=== PATIENT | female | born 1955 | race Caucasian/White ===

== ENCOUNTER 2019-08-25 00:24 | Outpatient (CLI) | payer MEDICARE, OTHER, SELFPAY ==
[2019-08-25 17:48] LABS: SARS-CoV-2 RNA PCR Negative
== END 2019-08-25 00:25 | disposition home or self-care (01) ==
LOC: ANHCOVIDDT 00:25
PROVIDERS: PCP Internal Medicine; Visit Provider Internal Medicine Gastroenterology
DX: Z01.818 Encounter for other preprocedural examination (principal); Z11.59 Encounter for screening for other viral diseases
CPT/HCPCS: 87635; C9803; U0003

== ENCOUNTER 2019-08-28 00:16 | Day surgery (SDC) | payer MEDICARE, OTHER, SELFPAY ==
[2019-08-16 13:57] VITALS: BMI 29.5
[2019-08-28 07:25] VITALS: BP 147/69; PULSE 53; RESP 18; TEMP 36.4; O2SAT 98; BMI 29.5
[2019-08-28] MEDS: LACTATED RINGERS 1,000 ML 150 ML IV CONT (07:39)
--- NOTE | 2019-08-28 07:48 | WPDANESEPPF ---
Anes - Initial Pre Proc Eval Procedure: Operation Date: 08/28/19 08:30 Proposed Procedures p Colonoscopy - Gilberto Crain MD Date/Time: 08/28/19 07:48 Surgeon: Gilberto Crain MD Pre Op Diagnosis: History of Colon Cancer, Blood in Stool Patient Data Age: 64 Gender: F Height: 5 ft 9 in Weight: 90.9 kg Last Vital Signs Temp 36.4 C 08/28/19 07:25 Pulse 53 L 08/28/19 07:25 Resp 18 08/28/19 07:25 BP 147/69 H 08/28/19 07:25 Pulse Ox 98 08/28/19 07:25 Allergies Allergy/AdvReac Type Severity Reaction Status Date / Time cefaclor Allergy Unknown Rash Verified 08/28/19 07:27 Cephalosporins Allergy Unknown Rash Verified 08/28/19 07:27 Home Medications Medication Instructions Recorded Confirmed Type aspirin [Aspirin Low Dose] 81 mg PO DAILY 08/16/19 08/28/19 History multivitamin [Daily Multi-Vitamin] 1 tablet PO DAILY 08/16/19 08/16/19 History omega 9-mzf-ogc-fish oil [Fish Oil] 1 cap PO DAILY 08/16/19 08/16/19 History amlodipine 10 mg tablet 10 mg PO DAILY #90 tablet 08/23/19 08/28/19 Rx benazepril 10 mg tablet 10 mg PO DAILY #90 tablet 08/23/19 08/28/19 Rx Patient hx anesthesia problems: none Family hx anesthesia problems: none [facility] Family History Family History Mother Family history of cardiac disorder Father Family history of diabetes mellitus in first degree relative Family history of heart disease in male family member before age 55 Social History Social History Smoking status: Former smoker Smoking end date: 03/15/96 Alcohol intake: current Anes - Eval Final PreProcedure Day of Procedure 08/28/19 07:48 Patient weight: obese Heart: regular rate and rhythm Lungs: clear to auscultation Airway: Mallampati scale class II Neurological: alert and oriented Last oral intake: >/= 8 hours ASA classification: III Emergent: no Anesthetic plan: proceed Anesthesia type and monitoring: general GIVS and standard monitoring Informed Consent: The patient's anesthetic plan and its attendant risks and benefits were discussed with the patient/family/POA. Questions were solicited and answers provided to the satisfaction of the patient/family/POA.
--- NOTE | 2019-08-28 07:58 | PM.HPGS ---
History of Present Illness History of Present Illness Consent: Risks, benefits, and alternatives have been discussed and questions answered. Patient agrees to proceed with procedure. Chief complaint: History of Colon Cancer, Blood in Stool Narrative: Carmelina Brooks is a 64 year old W female referred for colonoscopy secondary history of Hemoccult-positive stool. Patient also had a sigmoid resection in 2006 secondary to a dysplastic sigmoid polyp. No invasive cancer was noted after the surgery. Patient's last colonoscopy was 4 years ago revealing normal anastomosis. Patient has occasional constipation and that alternating with diarrhea. [facility] Past Medical History Medical History Obesity (BMI 30.0-34.9) Surgical History Surgical History (Updated 08/28/19 @ 08:00 by Gilberto Crain MD) Status post abdominal hysterectomy Status post cholecystectomy Status post right hip replacement Family History Family History Mother Family history of cardiac disorder Father Family history of diabetes mellitus in first degree relative Family history of heart disease in male family member before age 55 Social History Social History Smoking status: Former smoker Smoking end date: 03/15/96 Alcohol intake: current Meds Home Medications and Allergies Home Medications Medication Instructions Recorded Confirmed Type aspirin [Aspirin Low Dose] 81 mg PO DAILY 08/16/19 08/28/19 History multivitamin [Daily Multi-Vitamin] 1 tablet PO DAILY 08/16/19 08/16/19 History omega 1-pqg-yqd-fish oil [Fish Oil] 1 cap PO DAILY 08/16/19 08/16/19 History amlodipine 10 mg tablet 10 mg PO DAILY #90 tablet 08/23/19 08/28/19 Rx benazepril 10 mg tablet 10 mg PO DAILY #90 tablet 08/23/19 08/28/19 Rx Allergies Allergy/AdvReac Type Severity Reaction Status Date / Time cefaclor Allergy Unknown Rash Verified 08/28/19 07:27 Cephalosporins Allergy Unknown Rash Verified 08/28/19 07:27 Vital Signs Vital Signs - 24 hr 08/28/19 07:25 Temperature 36.4 C Pulse Rate 53 L Respiratory Rate 18 Blood Pressure 147/69 H Pulse Oximetry 98 Exam Const: Orientation/consciousness: patient oriented x3 Resp: Auscultation: clear to auscultation bilaterally Cardio: Rate: regular rate Rhythm: regular rhythm Heart sounds: no murmurs GI: GI Palp: Yes Soft to palpation, No Tenderness to palpation present (GI), Yes No hepatosplenomegaly present and No Palpable mass present Auscultation: normal bowel sounds Neuro: General: patient oriented x3 and no focal motor deficits Extrem: General: no pedal edema Assessment and Plan Additional Plan screening colonoscopy secondary history of colonic polyps and heme-positive stool
[2019-08-28] MEDS: SIMETHICONE ORAL SUSPENSION 20 MG/0.3 ML 30 ML BOTTLE 0.6 ML IRRIGATION (08:37)
[2019-08-28 09:15] VITALS: BP 89/39; PULSE 56; RESP 16; O2SAT 100
[2019-08-28 09:25] VITALS: BP 108/53; PULSE 50; RESP 16; O2SAT 100
[2019-08-28 09:35] VITALS: BP 121/59; PULSE 48; RESP 16; O2SAT 100
== END 2019-08-28 09:52 | disposition home or self-care (01) ==
PROVIDERS: PCP Internal Medicine; Visit Provider Internal Medicine Gastroenterology
PROC: 0DJD8ZZ Inspection of Lower Intestinal Tract, Via Natural or Artificial Opening Endoscopic (ICD-10-PCS; CPT 45378; principal; 2019-08-28 08:30)
DX: Z12.11 Encounter for screening for malignant neoplasm of colon (principal); D12.0 Benign neoplasm of cecum; D12.2 Benign neoplasm of ascending colon; K52.9 Noninfective gastroenteritis and colitis, unspecified; Z79.82 Long term (current) use of aspirin; Z87.891 Personal history of nicotine dependence; E66.9 Obesity, unspecified; Z68.29 Body mass index [BMI] 29.0-29.9, adult; Z90.49 Acquired absence of other specified parts of digestive tract; Z98.0 Intestinal bypass and anastomosis status
CPT/HCPCS: 45380; 45381; 45385; 88305; J2001; J2704; J7120

== ENCOUNTER → 2020-01-31 10:28 | Outpatient (CLI) | payer MEDICARE, OTHER, SELFPAY ==
--- NOTE | ~2020-01-31 | MM_ITS ---
EXAMINATION: MM screening [facility] BI w eulogio HISTORY: Screening mammogram TECHNIQUE: Craniocaudal and mediolateral oblique 3-D tomosynthesis images were obtained and synthetic 2-D images were generated. CAD analysis was submitted and interpreted. COMPARISON: 01/01/2019, 01/04/2018, 12/29/2016 BREAST PARENCHYMAL COMPOSITION: The breasts are almost entirely fatty. FINDINGS: There is no evidence of suspicious mass, calcification, or architectural distortion to sugg est malignancy in either breast. There has been no suspicious interval change. IMPRESSION: 1. No mammographic evidence of malignancy. 2. Recommend routine screening mammography in one year. BI-RADS Category 1: Negative Reviewed, dictated and finalized at location A. LE OPERATOR HEAD
== END ==
PROVIDERS: PCP Internal Medicine; Visit Provider Nurse Practitioner Obstetrics & Gynecology
DX: Z12.31 Encounter for screening mammogram for malignant neoplasm of breast (principal)
CPT/HCPCS: 77063; 77067

== ENCOUNTER 2020-02-12 07:41 | Outpatient (CLI) | payer MEDICARE, OTHER, SELFPAY ==
--- NOTE | ~2020-02-12 | US_ITS ---
EXAMINATION: US aorta [facility] scrn DATE: 02/12/2020 08:10 INDICATION: Abdominal aortic aneurysm screening. TECHNIQUE: Grayscale, color Doppler, and pulsed Doppler images of the aorta and common iliac arteries were obtained. COMPARISON: None. FINDINGS: The aorta is normal in caliber. The right common iliac artery is normal in caliber. The left common i liac artery is normal in caliber. IMPRESSION: 1. No abdominal aortic aneurysm. Reviewed, dictated and finalized at location A. ATRIC PHYSICIAN
== END 2020-02-12 07:42 | disposition home or self-care (01) ==
PROVIDERS: PCP Internal Medicine; Visit Provider Internal Medicine
DX: Z13.6 Encounter for screening for cardiovascular disorders (principal)
CPT/HCPCS: 76706

== ENCOUNTER → 2020-02-15 12:15 | Outpatient (CLI) | payer MEDICARE, OTHER, SELFPAY ==
--- NOTE | ~2020-02-15 | CT_ITS ---
EXAMINATION: CT foot LT wo con DATE: 02/15/2020 12:48 INDICATION: Left hindfoot pain TECHNIQUE: High resolution computed tomography (CT) of the left foot was performed without intravenou s contrast. Additional sagittal and coronal reconstructions were performed. Automated exposure contro l and iterative reconstruction technique were employed. The dose-length product was 162.71 mGy-cm. COMPARISON: Left foot radiographs dated 12/12/2019 FINDINGS: Old healed fracture at the neck of the fifth metatarsal with small cerclage wire through the dorsal c ortex. Bone alignment is otherwise normal. No other fractures. Mild osteoarthritis at the first and f ifth metatarsophalangeal joints. Small Achilles spur and moderate sized plantar calcaneal spur. Achil les tendinosis with fusiform thickening and mild decreased central tendon attenuation at approximatel y 3 cm above level of the calcaneal insertion. Peroneus brevis tendinosis with additional fusiform th ickening of the tendon centered at the level of the tip of the lateral malleolus. No left ankle joint effusion. IMPRESSION: 1. Mild osteoarthritis at the first and fifth metatarsophalangeal joints, the latter likely secondary to old healed internally fixed fractures at the neck of the fifth metatarsal. 2. Small Achilles and moderate sized plantar calcaneal spurs. 3. Mild Achilles tendinosis and mild peroneus brevis tendinopathy. Reviewed, dictated and finalized at location A. IT RELATIONSHIP MANAGER IMPRESSION: 1. Mild osteoarthritis at the first and fifth metatarsophalangeal joints, the l atter likely secondary to old healed internally fixed fractures at the neck of the fifth metatarsal. 2. Small Achilles and moderate sized plantar calcaneal spurs. 3. Mild Achilles tendinosis and mild peroneus brevis tendinopathy.
--- NOTE | ~2020-02-15 | CT_ITS ---
EXAMINATION: CT foot RT wo con DATE: 02/15/2020 12:47 INDICATION: Right foot pain TECHNIQUE: High resolution computed tomography (CT) of the right foot was performed without intraveno us contrast. Additional sagittal and coronal reconstructions were performed. Automated exposure contr ol and iterative reconstruction technique were employed. The dose-length product was 176.47 mGy-cm. COMPARISON: Right foot radiographs dated 12/12/2019 FINDINGS: Bone alignment is normal. No fracture. Mild osteoarthritis at the first metatarsophalangeal joint. Re maining joint spaces are relatively preserved. Tiny heterotopic ossicle near the posterior inferior t ip of the lateral malleolus which may represent sequela of chronic lateral ankle sprain. Small Achill es and plantar calcaneal spurs. Achilles tendinosis with fusiform thickening and mild central decreas ed tendon attenuation centered approximately 3 cm proximal to the calcaneal insertion. Additional mil d fusiform thickening of the peroneus brevis tendon centered at the tip of the lateral malleolus cons istent with mild tendinopathy. Soft tissues are otherwise unremarkable. No right ankle joint effusion . IMPRESSION: 1. Mild osteoarthritis at the first metatarsophalangeal joint. No acute osseous abnormality. 2. Small Achilles and plantar calcaneal spurs. 3. Mild Achilles tendinosis and mild tenderness brevis tendinopathy. Reviewed, dictated and finalized at location A. SOFT SUGAR OPERATOR
== END ==
PROVIDERS: PCP Internal Medicine; Visit Provider Orthopaedic Surgery
DX: M19.072 Primary osteoarthritis, left ankle and foot (principal); M19.071 Primary osteoarthritis, right ankle and foot; M77.32 Calcaneal spur, left foot; M77.31 Calcaneal spur, right foot
CPT/HCPCS: 73700

== ENCOUNTER 2020-02-26 10:23 | Outpatient (CLI) | payer MEDICARE, OTHER, SELFPAY ==
--- NOTE | 2020-02-26 10:25 | ECG_ITS ---
Measurements Intervals [place] Rate: 48 P: 43 LA: 193 QRS: 15 QRSD: 88 T: 28 QT: 410 QTc: 367 Interpretive Statements SINUS BRADYCARDIA DELAYED PRECORDIAL R/S TRANSITION BASELINE ARTIFACT- I, II, III, AVR, AVL, AVF ABNORMAL ECG Electronically Signed On 02-26-2020 10:51:56 MICROSOFT DYNAMICS DEVELOPER by Kali Bautista D.O.
== END 2020-02-26 10:24 | disposition home or self-care (01) ==
LOC: ANHSURGERY 10:25
PROVIDERS: PCP Internal Medicine; Visit Provider Orthopaedic Surgery
DX: Z01.810 Encounter for preprocedural cardiovascular examination (principal); R00.1 Bradycardia, unspecified; I10 Essential (primary) hypertension
CPT/HCPCS: 93005

== ENCOUNTER 2020-03-01 01:53 | Outpatient (CLI) | payer MEDICARE, OTHER, SELFPAY ==
[2020-03-01 20:00] LABS: SARS-CoV-2 RNA PCR Negative
== END 2020-03-01 01:54 | disposition home or self-care (01) ==
LOC: ANHCOVIDDT 01:53
PROVIDERS: PCP Internal Medicine; Visit Provider Orthopaedic Surgery
DX: Z01.812 Encounter for preprocedural laboratory examination (principal); Z20.828 Contact with and (suspected) exposure to other viral communicable diseases
CPT/HCPCS: 87635; C9803; U0003

== ENCOUNTER 2020-03-04 01:53 | Day surgery (SDC) | payer MEDICARE, OTHER, SELFPAY ==
[2020-02-23 14:01] VITALS: BMI 29.6
[2020-03-04] VITALS (7 sets, daily range): BP systolic 146–162; BP diastolic 67–83; PULSE 53–58; RESP 10–20; TEMP 36; O2SAT 96–100
--- NOTE | ~2020-03-04 | XR_ITS ---
EXAMINATION: XR surgery orthopedic DATE: 03/04/2020 14:06 INDICATION: Left cavovarus deformity and left foot pain. TECHNIQUE: 4 intraoperative fluoroscopic views of left foot were obtained. I was not present. Fluoros copy exposure time was 19 seconds. COMPARISON: Left foot CT 02/15/2020 FINDINGS: There is an osteotomy of calcaneus with fixation with a lag screw. There is an osteotomy of medial cuneiform with fixation with a staple. There is surgical change versus old healed fracture in volving neck of fifth metatarsal with wire fixation. IMPRESSION: 1. Osteotomies of calcaneus and medial cuneiform with fixation. Reviewed, dictated and finalized at location A. ARD MACHINE OPERATOR
--- NOTE | 2020-03-04 06:55 | WPDHPUPDATE1 ---
History and Physical Update Update Date/Time: 03/04/20 06:55 History and Physical has been reviewed, including an updated exam of the patient. There are NO changes in the patient's condition. Covid test negative Risks, benefits, and alternatives have been discussed and questions answered. Patient agrees to proceed with procedure.
--- NOTE | 2020-03-04 07:41 | PHAR ---
CEFAZOLIN ORDERED, MILD (RASH) CEPHALOSPORIN ALLERGY. TALKED TO YOLANDE Clemons RN IN PRE-OP. HE WILL LET HER NURSE, DEANA, KNOW
[2020-03-04] MEDS: ACETAMINOPHEN 500 MG TABLET 1000 MG PO (10:19)
[2020-03-04] MEDS: KETOROLAC 15 MG/ML VIAL (*BKC) IV PUSH (10:25)
--- NOTE | 2020-03-04 10:27 | WPDANESEPPF ---
Anes - Initial Pre Proc Eval Procedure: Operation Date: 03/04/20 11:30 Proposed Procedures p Left Calcaneus Osteotomy, First Metatarsal Osteotomy - Luke Turpin MD Date/Time: 03/04/20 10:27 Surgeon: Luke Turpin MD Pre Op Diagnosis: left cavovarus deformity and pain Patient Data Age: 64 Gender: F Height: 1.75 m Weight: 91 kg Allergies Allergy/AdvReac Type Severity Reaction Status Date / Time cefaclor Allergy Mild Rash Verified 02/27/20 08:34 Cephalosporins Allergy Mild Rash Verified 02/27/20 08:34 Home Medications Medication Instructions Recorded Confirmed Type aspirin [Aspirin Low Dose] 81 mg PO DAILY 08/16/19 02/27/20 History multivitamin [Daily Multi-Vitamin] 1 tablet PO DAILY 08/16/19 02/27/20 History omega 0-pjt-qbz-fish oil [Fish Oil] 2 cap PO DAILY 08/16/19 02/27/20 History amlodipine 10 mg tablet 10 mg PO DAILY #90 tablet 08/23/19 02/27/20 Rx benazepril 10 mg tablet 10 mg PO DAILY #90 tablet 08/23/19 02/27/20 Rx conjugated estrogens 0.625 mg/gram 0.625 mg VAGINAL 2XW 12/12/19 02/27/20 History vaginal cream glucosamine sulfate 1,000 mg 1,000 mg PO DAILY 12/12/19 02/27/20 History capsule lactobacillus combination no.8 3 3,000 mmu cells PO DAILY 12/12/19 02/27/20 History billion cell capsule psyllium husk 0.52 gram capsule 1.04 gm PO DAILY 12/12/19 02/27/20 History hydrocodone 5 mg-acetaminophen 325 1 tablet PO Q4H PRN #30 tablet 02/28/20 02/28/20 Rx mg tablet ondansetron 8 mg disintegrating 8 mg PO Q6-8H PRN #10 tablet 02/28/20 02/28/20 Rx tablet Patient hx anesthesia problems: none Family hx anesthesia problems: none PMFSH Past Medical History Medical History Air hunger Arthritis Bee sting Bunionette of right foot Callus of foot Cavovarus deformity of foot, acquired Chest wall pain Chronic rhinitis Colon cancer screening Decreased motility of stomach Hypertension Obesity (BMI 30.0-34.9) Seasonal allergies Vision loss Surgical History Surgical History History of colon surgery History of surgery Port-A-Cath placement, 2005 Status post abdominal hysterectomy Status post cholecystectomy Status post right hip replacement Family History Family History Mother Family history of cardiac disorder Father Family history of diabetes mellitus in first degree relative Family history of heart disease in male family member before age 55 Other Heart disease History of malignant neoplasm Hypertension Social History Social History Smoking packs per day: 1.5 Smoking cigarettes per day: 30.0 Years smoked: 25 Smoking pack-years: 37.50 Smoking end date: 09/12/98 Alcohol intake: current Drinks per week: 18 Substance use: never Substance use type: does not use Living arrangements: with family Additional living arrangements comments: JUNA Gender identity (if verbalized by the patient): Female Spiritual care concerns: No Anes - Eval Final PreProcedure Day of Procedure 03/04/20 10:27 Patient weight: overweight Heart: regular rate and rhythm Lungs: clear to auscultation and normal air movement Airway: Mallampati scale class II Neurological: alert and oriented Last oral intake: >/= 8 hours ASA classification: III Emergent: no Anesthetic plan: proceed Anesthesia type and monitoring: general LMA and standard monitoring Informed Consent: The patient's anesthetic plan and its attendant risks and benefits were discussed with the patient/family/POA. Questions were solicited and answers provided to the satisfaction of the patient/family/POA.
[2020-03-04] MEDS: LACTATED RINGERS 1,000 ML 30 ML IV CONT ×2 (11:30→14:22)
[2020-03-04] MEDS: ceFAZolin 2 GM/D5W 50 ML 2 GM/50 ML BAG IVPB (12:34)
[2020-03-04] MEDS: BUPIVACAINE HCL 0.5% PF 30 ML VIAL INFILTRATE (13:08)
[2020-03-04] MEDS: fentaNYL CITRATE INJ (*CRX) 100 MCG/2 ML VIAL 25 MCG IV PUSH ×4 (14:41→14:58)
--- NOTE | 2020-03-04 14:46 | PM.PROC ---
Procedure Note - Detailed Date of procedure: 03/04/20 Pre-op diagnosis: left cavovarus deformity and pain Post-op diagnosis: same Procedure performed: Left foot calcaneus and cuneiform osteotomy Description of procedure: Indications: Patient is a 64-year-old woman with a cavovarus foot deformity with pressure and overload of the lateral border of the foot, pain and callus formation. She has failed conservative treatment with custom orthotic inserts, ankle brace, skin and local wound care. She presents now for operative treatment. What was done: Patient identified in the preoperative holding. Informed consent given. Operative extremity marked. Patient received intravenous antibiotics. Patient brought to the operating room where underwent general anesthetic by anesthesia team. Positioned supine on operating room table. Time-out performed confirming the patient, site of the surgery and the plan. Left foot and ankle prepped and draped usual sterile surgical fashion using a ChloraPrep skin solution. Foot ankle exsanguinated and thigh tourniquet inflated to 250 mmHg. Image intensification used to guide the placement of the incision over the lateral calcaneus. Oblique incision made with 15 blade knife posterior to the fibula. Hemostasis controlled electrocautery. Care was taken to protect the sensory elements. Periosteum was then incised in line with skin incision. Image intensification was used to confirm the placement of the osteotomy. Transverse osteotomy then made from lateral to medial with a sagittal saw and completed with osteotomes. Posterior fragment was then displaced laterally approximately 9 mm and provisionally pinned. After verifying alignment fixation was achieved with the 6.5 mm cannulated screw placed percutaneously from the heel. The position checked and verified with image intensification. Wound thoroughly irrigated antibiotic solution and the deep tissue closed with 3 Monocryl interrupted suture. Subcutaneous tissue repaired with 3 Monocryl interrupted suture and the skin repaired with 4 nylon running suture. The internal fixation incision closed with 4 O nylon interrupted suture. Attention then turned to the medial cuneiform. Longitudinal incision made over the dorsum of the medial cuneiform and hemostasis controlled electrocautery. Dissection carried down and the periosteum incised in line with skin incision. Image intensification then confirmed placement of the osteotomy in the midportion of the medial cuneiform and a dorsal closing wedge osteotomy of approximately 5 mm was performed. Fixation was achieved with the staple and alignment and placement were verified with image intensification. Wound thoroughly irrigated with antibiotic solution and the superficial soft tissue closed with 3 Monocryl interrupted suture. Skin repaired with 4 nylon running suture. Sterile dressing applied. The patient was then woken from anesthesia, extubated and taken to the recovery room in stable condition. All sponge, needle, instrument counts were correct at the end of the case. Implants: Ajith 6.5 mm cannulated screw x1, Arthrex 15 x 15 mm staple x1 Anesthesia: GLMA Surgeon: Luke Turpin MD Geospatial Intelligence Analyst: 1st clothing sales assistant Estimated blood loss (mL): 5 Tourniquet time (min): 70 Drains: No Packing: No Pathology: none sent Complications: None Condition: stable Disposition: PACU
== END 2020-03-04 16:14 | disposition home or self-care (01) ==
PROVIDERS: PCP Internal Medicine; Visit Provider Orthopaedic Surgery
PROC: (CPT 28750; principal; 2020-03-04 11:30)
DX: Q66.12 Congenital talipes calcaneovarus, left foot (principal); I10 Essential (primary) hypertension; Z87.891 Personal history of nicotine dependence
CPT/HCPCS: 28300; 28304; A9270; C1713; J0690; J1100; J1885; J2405; J2704; J3010; J7120

== ENCOUNTER 2020-05-17 11:11 | Outpatient (CLI) | payer MEDICARE, OTHER, SELFPAY | END 2020-05-17 11:12 | disposition home or self-care (01) | LOC: ANHCOVIDVC 11:11 | PROVIDERS: PCP Internal Medicine | DX: Z23 Encounter for immunization (principal) | CPT/HCPCS: 0001A; 91300 ==

== ENCOUNTER 2020-06-07 11:11 | Outpatient (CLI) | payer MEDICARE, OTHER, SELFPAY | END 2020-06-07 11:12 | disposition home or self-care (01) | LOC: ANHCOVIDVC 11:11 | PROVIDERS: PCP Internal Medicine | DX: Z23 Encounter for immunization (principal) | CPT/HCPCS: 0002A; 91300 ==

== ENCOUNTER → 2020-07-24 09:11 | Outpatient (CLI) | payer MEDICARE, OTHER, SELFPAY ==
--- NOTE | ~2020-07-24 | XR_ITS ---
XR hand LT min 3V DATE: 07/24/2020 09:23 INDICATION: Lump at distal end of third finger. No injury. TECHNIQUE: 3 views COMPARISON: None FINDINGS: Osteoarthritic changes are noted primarily at the distal interphalangeal joints, including the distal interphalangeal joint of the third digit, where there is a degenerative ossicle at the leandro howard aspect of the distal interphalangeal joint, likely accounting for the clinically reported bump . No fracture or dislocation, periosteal reaction or bone destruction. There is some benign cysts of the lunate and scaphoid bones. IMPRESSION: Osteoarthritic changes primarily at the distal interphalangeal joints Reviewed, dictated and finalized at location A. IMPRESSION: Osteoarthritic changes primarily at the distal interphalangeal join ts
== END ==
PROVIDERS: PCP Internal Medicine; Visit Provider Internal Medicine
DX: M19.042 Primary osteoarthritis, left hand (principal)
CPT/HCPCS: 73130

== ENCOUNTER 2020-09-23 11:31 | Outpatient (CLI) | payer MEDICARE, OTHER, SELFPAY ==
[2020-09-23 11:54] LABS: Basophils Percent Auto 0.6 % (0.2-1.2); Eosinophils Absolute Auto 0.3 K/mm3 (0-0.3); Eosinophils Percent Auto 4.1 % (0-4.4); Hematocrit 42.5 % (37.0-47.0); Hemoglobin 13.9 g/dL (12.0-15.0); Immature Granulocyte Absolute 0.02 K/mm3 (0.00-0.031); Immature Granulocyte Percent A 0.3 % (0-0.5); Lymphocytes Absolute Auto 1.55 K/mm3 (0.9-3.2); Lymphocytes Percent Auto 23.5 % (18.3-44.2); Mean Corpuscular HGB Conc 32.7 g/dl (32-36); Mean Corpuscular Hemoglobin 29.1 pg (26-34); Mean Corpuscular Volume 89.1 fl (80-100); Mean Platelet Volume 10.7 fl (7.4-10.4); Monocytes Absolute Auto 0.6 K/mm3 (0.1-0.6); Monocytes Percent Auto 8.9 % (2.6-8.5); Neutrophils Absolute Auto 4.1 K/mm3 (1.3-6.7); Neutrophils Percent Auto 62.6 % (45.5-73.1); Platelet Count Result 179 k/mm3 (150-375); Red Blood Count 4.77 M/mm3 (4.2-5.4); Red Cell Distribution Width 12.7 % (11.5-14.5); White Blood Count 6.6 K/mm3 (4.5-10.0)
[2020-09-23 19:43] LABS: Alanine Aminotransferase 15 U/L (4-35); Albumin Level 4.4 g/dL (3.5-5.1); Alkaline Phosphatase 105 U/L (38-126); Anion Gap 9 mmol/L (8-16); Aspartate Amino Transferase 23 U/L (14-36); Bilirubin,Total 0.7 mg/dL (0.2-1.3); Blood Urea Nitrogen 14 mg/dL (7-17); Calcium 10.5 mg/dL (8.4-10.2); Carbon Dioxide 28 mmol/L (22-30); Chloride 104 mmol/L (98-107); Estimated Glomerular Filt Rate > 60; Glucose 94 mg/dL (65-105); Lactate Dehydrogenase 409 U/L (313-618); Potassium 4.9 mmol/L (3.4-5.0); Sodium 141 mmol/L (137-145)
== END 2020-09-23 11:32 | disposition home or self-care (01) ==
LOC: ANHLAB 11:38
PROVIDERS: Visit Provider Internal Medicine Hematology & Oncology
DX: C82.90 Follicular lymphoma, unspecified, unspecified site (principal)
CPT/HCPCS: 36415; 80053; 83615; 85025

== ENCOUNTER 2020-10-29 01:29 | Day surgery (SDC) | payer MEDICARE, OTHER, SELFPAY ==
[2020-10-17 12:50] VITALS: BMI 25.7
[2020-10-29 07:13] VITALS: BP 151/78; PULSE 54; RESP 18; TEMP 36.4; O2SAT 98; BMI 25.1
[2020-10-29] MEDS: LACTATED RINGERS 1,000 ML 150 ML IV CONT (07:40)
--- NOTE | 2020-10-29 07:51 | WPDGICN ---
Assessment and Plan Assessment and plan (1) History of colonic polyps: Code(s): Z86.010 - Personal history of colonic polyps Status: Acute Assessment and Plan: Patient has a history of colon polyps initially 2006 requiring partial colectomy. And again in 2019. Plan is for surveillance colonoscopy now. Follow-up interval will be determined after endoscopy is accomplished. GI Consult Note Consult date/time: 10/29/20 07:51 HPI: Carmelina Brooks is a 65 year old female Presents for screening surveillance colonoscopy. Patient has a history of a partial colectomy in 2006 because of a very large colon polyp. This was ultimately found to be benign. Although suspicious for malignancy initially. Patient underwent follow-up colonoscopy last year in August of 2019 with a very large polyp resected by Dr. Gilberto Steinberg. Patient presents today for follow-up examination because of the large size of the colon polyp 1 year ago. Patient reports that her current weight appetite bowel movements are normal. She denies abdominal pain. She has had no bleeding. Family history is noncontributory. Review of Systems Review of Systems: All systems reviewed & are unremarkable except as noted in HPI and below PMFSH Past Medical History Medical History Air hunger Arthritis Bee sting Bunionette of right foot Callus of foot Cavovarus deformity of foot, acquired Chest wall pain Chronic rhinitis Colon cancer screening Decreased motility of stomach Hypertension Obesity (BMI 30.0-34.9) Seasonal allergies Vision loss Surgical History Surgical History History of colon surgery History of surgery Port-A-Cath placement, 2005 Status post abdominal hysterectomy Status post cholecystectomy Status post right hip replacement Family History Family History Mother Family history of cardiac disorder Father Family history of diabetes mellitus in first degree relative Family history of heart disease in male family member before age 55 Other Heart disease History of malignant neoplasm Hypertension Social History Social History Smoking packs per day: 1.5 Smoking cigarettes per day: 30.0 Years smoked: 15 Smoking pack-years: 22.50 Smoking status: Former smoker Tobacco type: cigarettes Smoking end date: 09/12/98 Alcohol intake: current Drinks per week: 18 Alcohol use details: 7-10 per week Substance use: never Substance use type: does not use Living arrangements: with family Additional living arrangements comments: JUAN Gender identity (if verbalized by the patient): Female Spiritual care concerns: No Meds Home Medications and Allergies Home Medications Medication Instructions Recorded Confirmed Type aspirin [Aspirin Low Dose] 81 mg PO DAILY 08/16/19 10/29/20 History multivitamin [Daily Multi-Vitamin] 1 tablet PO DAILY 08/16/19 10/29/20 History omega 3-eqb-uus-fish oil [Fish Oil] 2 cap PO DAILY 08/16/19 10/29/20 History amlodipine 10 mg tablet 10 mg PO DAILY #90 tablet 08/23/19 10/29/20 Rx conjugated estrogens 0.625 mg/gram 0.625 mg VAGINAL 2XW 12/12/19 10/29/20 History vaginal cream glucosamine sulfate 1,000 mg 1,000 mg PO DAILY 12/12/19 10/29/20 History capsule lactobacillus combination no.8 3 3,000 mmu cells PO DAILY 12/12/19 10/29/20 History billion cell capsule psyllium husk 0.52 gram capsule 1.04 gm PO DAILY 12/12/19 10/29/20 History benazepril [Lotensin] 10 mg PO DAILY 10/17/20 10/29/20 History Allergies Allergy/AdvReac Type Severity Reaction Status Date / Time cefaclor Allergy Mild Rash Verified 10/29/20 07:21 Cephalosporins Allergy Mild Rash Verified 10/29/20 07:21 Vital Signs Vital Signs - 24 hr 10/29/20 07:13 Temperat
--- NOTE | 2020-10-29 08:11 | WPDANESEPPF ---
Anes - Initial Pre Proc Eval Procedure: Operation Date: 10/29/20 08:45 Proposed Procedures p Screening Colonoscopy - Maynor Russell MD Date/Time: 10/29/20 08:11 Surgeon: Maynor Russell MD Pre Op Diagnosis: hx of colon polyps Patient Data Age: 65 Gender: F Height: 1.75 m Weight: 77.1 kg Last Vital Signs Temp 97.5 F L 10/29/20 07:13 Pulse 54 L 10/29/20 07:13 Resp 18 10/29/20 07:13 BP 151/78 H 10/29/20 07:13 Pulse Ox 98 10/29/20 07:13 Allergies Allergy/AdvReac Type Severity Reaction Status Date / Time cefaclor Allergy Mild Rash Verified 10/29/20 07:21 Cephalosporins Allergy Mild Rash Verified 10/29/20 07:21 Home Medications Medication Instructions Recorded Confirmed Type aspirin [Aspirin Low Dose] 81 mg PO DAILY 08/16/19 10/29/20 History multivitamin [Daily Multi-Vitamin] 1 tablet PO DAILY 08/16/19 10/29/20 History omega 3-qhw-mas-fish oil [Fish Oil] 2 cap PO DAILY 08/16/19 10/29/20 History amlodipine 10 mg tablet 10 mg PO DAILY #90 tablet 08/23/19 10/29/20 Rx conjugated estrogens 0.625 mg/gram 0.625 mg VAGINAL 2XW 12/12/19 10/29/20 History vaginal cream glucosamine sulfate 1,000 mg 1,000 mg PO DAILY 12/12/19 10/29/20 History capsule lactobacillus combination no.8 3 3,000 mmu cells PO DAILY 12/12/19 10/29/20 History billion cell capsule psyllium husk 0.52 gram capsule 1.04 gm PO DAILY 12/12/19 10/29/20 History benazepril [Lotensin] 10 mg PO DAILY 10/17/20 10/29/20 History Patient hx anesthesia problems: none Family hx anesthesia problems: none PMFSH Past Medical History Medical History Air hunger Arthritis Bee sting Bunionette of right foot Callus of foot Cavovarus deformity of foot, acquired Chest wall pain Chronic rhinitis Colon cancer screening Decreased motility of stomach Hypertension Obesity (BMI 30.0-34.9) Seasonal allergies Vision loss Surgical History Surgical History History of colon surgery History of surgery Port-A-Cath placement, 2005 Status post abdominal hysterectomy Status post cholecystectomy Status post right hip replacement Family History Family History Mother Family history of cardiac disorder Father Family history of diabetes mellitus in first degree relative Family history of heart disease in male family member before age 55 Other Heart disease History of malignant neoplasm Hypertension Social History Social History Smoking packs per day: 1.5 Smoking cigarettes per day: 30.0 Years smoked: 15 Smoking pack-years: 22.50 Smoking status: Former smoker Tobacco type: cigarettes Smoking end date: 09/12/98 Alcohol intake: current Drinks per week: 18 Alcohol use details: 7-10 per week Substance use: never Substance use type: does not use Living arrangements: with family Additional living arrangements comments: JUAN Gender identity (if verbalized by the patient): Female Spiritual care concerns: No Anes - Eval Final PreProcedure Day of Procedure 10/29/20 08:11 Patient weight: normal Heart: regular rate and rhythm Lungs: clear to auscultation Airway: Mallampati scale class II Neurological: alert and oriented Last oral intake: >/= 8 hours ASA classification: III Emergent: no Anesthetic plan: proceed Anesthesia type and monitoring: general GIVS and standard monitoring Informed Consent: The patient's anesthetic plan and its attendant risks and benefits were discussed with the patient/family/POA. Questions were solicited and answers provided to the satisfaction of the patient/family/POA.
[2020-10-29] MEDS: SIMETHICONE ORAL SUSPENSION 20 MG/0.3 ML 30 ML BOTTLE 0.6 ML IRRIGATION (08:35)
[2020-10-29 08:49] VITALS: BP 104/46; PULSE 52; RESP 21; O2SAT 98
[2020-10-29 09:09] VITALS: BP 105/52; PULSE 55; RESP 21; O2SAT 98
[2020-10-29 09:17] VITALS: BP 126/55; PULSE 53; RESP 17; O2SAT 98
== END 2020-10-29 09:18 | disposition home or self-care (01) ==
PROVIDERS: PCP Internal Medicine; Visit Provider Internal Medicine Gastroenterology
PROC: 0DJD8ZZ Inspection of Lower Intestinal Tract, Via Natural or Artificial Opening Endoscopic (ICD-10-PCS; CPT 45378; principal; 2020-10-29 08:45)
DX: Z12.11 Encounter for screening for malignant neoplasm of colon (principal); D12.5 Benign neoplasm of sigmoid colon; I10 Essential (primary) hypertension; E66.9 Obesity, unspecified; M19.90 Unspecified osteoarthritis, unspecified site; J31.0 Chronic rhinitis; Z90.710 Acquired absence of both cervix and uterus; Z96.641 Presence of right artificial hip joint; Z87.891 Personal history of nicotine dependence; Z90.49 Acquired absence of other specified parts of digestive tract
CPT/HCPCS: 45385; 88305; J2001; J2704; J7120

== ENCOUNTER → 2021-02-03 07:17 | Outpatient (CLI) | payer MEDICARE, OTHER, SELFPAY ==
--- NOTE | ~2021-02-03 | MM_ITS ---
EXAMINATION: MM screening [facility] BI w eulogio HISTORY: Screening mammogram TECHNIQUE: Craniocaudal and mediolateral oblique 3-D tomosynthesis images were obtained and synthetic 2-D images were generated. CAD analysis was submitted and interpreted. COMPARISON: 01/31/2020, 01/09/2019 BREAST PARENCHYMAL COMPOSITION: The breasts are almost entirely fatty. FINDINGS: There is no evidence of suspicious mass, calcification, or architectural distortion to sugg est malignancy in either breast. There has been no suspicious interval change. IMPRESSION: 1. No mammographic evidence of malignancy. 2. Recommend routine screening mammography in one year. BI-RADS Category 1: Negative Reviewed, dictated and finalized at location A. [facility]
== END ==
PROVIDERS: PCP Internal Medicine; Visit Provider Obstetrics & Gynecology
DX: Z12.31 Encounter for screening mammogram for malignant neoplasm of breast (principal)
CPT/HCPCS: 77063; 77067

== ENCOUNTER → 2021-04-01 10:37 | Outpatient (CLI) | payer MEDICARE, OTHER, SELFPAY ==
--- NOTE | ~2021-04-01 | DEXA_ITS ---
Bone Density Report Name: CHAPITO BAIG Age: 65 Sex: Female Ethnicity: White Date of : 1955 Indication: postmenopausal; screening for osteoporosis; height loss; hysterectomy; Referring Provider: Benny, Prudence Harrell Study: Bone densitometry was performed. Exam Date: April 01, 2021 Accession number: [id number] Bone Density: Region BMD T-score Z-score Classification AP Spine (L1-L4) 1.086 0.4 2.2 Normal Femoral Neck (Left) 0.758 -0.8 0.8 Normal Total Hip (Left) 0.827 -0.9 0.4 Normal World Health Organization criteria for BMD impression classify patients as: Normal (T-score at or above -1.0), Osteopenia (T-score between -1.0 and -2.5), or Osteoporosis (T-score at or below -2.5). 10-year Fracture Risk: FRAX not reported because: All T-scores for Spine Total, Hip Total, Femoral Neck at or above -1.0 Previous Exams: Region Exam Age BMD T-score BMD Change BMD Change Date g/cm2 vs Baseline vs Previous AP Spine(L1-L4) 04/01/2021 65 1.086 0.4 -0.252 -0.015 01/12/2019 63 1.100 0.5 -0.238 -0.015 11/14/2015 60 1.115 0.6 -0.223 0.025* 11/11/2012 57 1.090 0.4 -0.248 -0.067* 10/21/2009 54 1.157 1.0 -0.181 0.011 09/06/2006 51 1.146 0.9 -0.192 -0.192 07/06/2003 47 1.338 2.6 Total Hip(Left) 04/01/2021 65 0.827 -0.9 -0.134 -0.056 01/12/2019 63 0.883 -0.5 -0.078 0.011 11/14/2015 60 0.872 -0.6 -0.089 0.027* 11/11/2012 57 0.845 -0.8 -0.116 -0.065* 10/21/2009 54 0.911 -0.3 -0.051 -0.021 09/06/2006 51 0.932 -0.1 -0.030 -0.030 07/06/2003 47 0.961 0.2 *Denotes significance at 95% confidence level, LSC for AP Spine = 0.022 g/cm2, LSC for Total Hip = 0.027 g/cm2 Clinical Information Provided by Patient: Has the following medical conditions: Hysterectomy Patient maximum height was 70 Menopause Age: 37 Does not regularly consume dairy products Drinks caffeinated beverages Onset of menses at age 12 Number of children 1 Impression: The patient has normal bone mass. No significant bone loss was observed. Discussion: BONE DENSITY IS ABOVE THE MINIMUM DESIRABLE LEVEL AT ALL SKELETAL SITES TESTED. This patient?s bone mineral density is above the minimum desirable level (T-score -1.0 or better) at all sites measured. The patient should follow a healthful l
== END ==
PROVIDERS: PCP Internal Medicine; Visit Provider Nurse Practitioner Obstetrics & Gynecology
DX: Z78.0 Asymptomatic menopausal state (principal); M85.80 Other specified disorders of bone density and structure, unspecified site
CPT/HCPCS: 77080

== ENCOUNTER 2021-05-05 00:29 | Day surgery (SDC) | payer MEDICARE, OTHER, SELFPAY ==
[2021-04-09 10:58] VITALS: BMI 24.0
--- NOTE | 2021-04-09 12:56 | PC.NURSE ---
Report to the Outpatient Waiting Room, entrance under the green pavilion located off [facility], at time 0600 on date _04/17/21 . OR Time: . - You and your visitor will be asked a series of questions to screen for COVID 19 for your protection. - A mask is required within the hospital. - Only one visitor is allowed at this time. Patient visitors will be guided where to wait when not with patient. Preoperative COVID Testing Requirements: No COVID Test needed if: (proof is required; if not received patient will have Rapid Test prior to entry) - Patient has received COVID Vaccine at least 14 days prior to procedure date or - Patient has positive COVID test result within last 90 days of surgery date. COVID Test needed if above criteria is not met If not COVID vaccinated a COVID test must be conducted within 72 hours of surgery and patient is asked to isolate self from time of testing until procedure. You will go to the [facility] for your COVID testing. The [facility] is located at the corner of [address] [facility]. You will only be called if COVID results are positive and your surgeon may reschedule your elective surgery date. Patients may have clear liquids (water, carbonated beverages, clear teas, apple juice) until 3 hours prior to surgery with a maximum of 20 ounces. - No food from midnight until time of surgery - Infants may have breast milk until 4 hours before surgery, formula 6 hours prior to surgery. - Children will be allowed to drink immediately following surgery. If applicable, please bring a bottle or sippy cup to assist with drinking. Juice, water, soda, and popsicles are readily available. For infants on formula, please bring formula the day of surgery. Pacifiers are allowed. Take the following medications with a SIP of water the morning of surgery: _AMLODIPINE Medications to discontinue per physician ALL VITAMINS AND SUPPLEMENTS 3 DAYS PRE OP Date to take last dose 04/13/21 Please no make-up, nail latvian, hairspray, perfume, deodorant, or body powder the day of surgery. No jewelry (including any body piercings) or valuables the day of surgery, leave them at home. Please take a shower or bath the night before, or the morning of, surgery with an antibacterial soap. Wear comfortable, loose fitting clothing. Children are encouraged to wear pajamas. - Jewelry must be removed prior to entering the operating room. Rings and piercings that are not removed may be cut off. - The hospital will not accept responsibility for valuables. - Please leave all valuables, including medications, at home the day of surgery. If you are going home after surgery, a licensed newspaper delivery driver must drive you home. - NO public transportation without another adult. - We recommend that an adult stay with you for 24 hours following discharge. - We also recommend that you do not drive, make important decision, drink alcoholic beverages, or take any drugs that were not prescribed by your health care provider for at least 24 hours after your discharge time. For Pediatric surgeries, we recommend two adults accompany the child home (only one inside the building at this time). Follow any additional instructions given to you from your surgeon. Telephone instructions given to __PT and asked if any additional questions and then verbalized understanding. Patient advised to call surgeon office or pre surgery nurse liaison [phone] if any additional questions.
--- NOTE | 2021-04-25 13:58 | PC.NURSE ---
Report to the Outpatient Waiting Room, entrance under the green pavilion located off [facility], at time __0630 on date ___05/05/21____. OR Time: . - You will be asked a series of questions to screen for COVID 19 for your protection. - A mask is required within the hospital. - No visitors are allowed at this time. Preoperative COVID Testing Requirements: No COVID Test needed if: (proof is required; if not received patient will have Rapid Test prior to entry) - Patient has received COVID Vaccine at least 14 days prior to procedure date or - Patient has positive COVID test result within last 90 days of surgery date. COVID Test needed if above criteria is not met If not COVID vaccinated a COVID test must be conducted within 72 hours of surgery and patient is asked to isolate self from time of testing until procedure. You will go to the [facility] Testing Site for your COVID testing. The [facility] is located at the corner of [address] [facility]. You will only be called if COVID results are positive and your surgeon may reschedule your elective surgery date. Patients may have clear liquids (water, carbonated beverages, clear teas, apple juice) until 3 hours prior to surgery with a maximum of 20 ounces. - No food from midnight until time of surgery - Infants may have breast milk until 4 hours before surgery, infant formula 6 hours prior to surgery. - Children will be allowed to drink immediately following surgery. If applicable, please bring a bottle or sippy cup to assist with drinking. Juice, water, soda, and popsicles are readily available. For infants on formula, please bring formula the day of surgery. Pacifiers are allowed. Take the following medications with a SIP of water the morning of surgery: ____AMLODIPINE Medications to discontinue per physician __ALL VITAMINS AND SUPPLEMENTS 3 DAYS PRE OP Date to take last dose___05/01/21 Please no make-up, nail congolese, hairspray, perfume, deodorant, or body powder the day of surgery. No jewelry (including any body piercings) or valuables the day of surgery, leave them at home. Please take a shower or bath the night before, or the morning of, surgery with an antibacterial soap. Wear comfortable, loose fitting clothing. Children are encouraged to wear pajamas. - Jewelry must be removed prior to entering the operating room. Rings and piercings that are not removed may be cut off. - The hospital will not accept responsibility for valuables. - Please leave all valuables, including medications, at home the day of surgery. If you are going home after surgery, a licensed hole digger truck driver must drive you home. - NO public transportation without another adult. - We recommend that an adult stay with you for 24 hours following discharge. - We also recommend that you do not drive, make important decision, drink alcoholic beverages, or take any drugs that were not prescribed by your health care provider for at least 24 hours after your discharge time. For Pediatric surgeries, we recommend two adults accompany the child home (only one inside the building at this time). Follow any additional instructions given to you from your surgeon. Telephone instructions given to _PATIENT and asked if any additional questions and then verbalized understanding. Patient advised to call surgeon office or pre surgery nurse liaison [phone] if any additional questions.
--- NOTE | 2021-05-04 22:59 | PM.IMHP ---
H&P: HPI History of Present Illness Date/Time: 05/04/21 22:59 Chief Complaint: Bilateral foot and heel pain. Narrative: 65yo woman with bilateral heel pain and left foot pain. Underwent left foot surgery 15mos ago. Failed treatment with stretching, inserts, PT, meds. Review of Systems Constitutional: Constitutional: Denies fever(s) Eyes: Eyes: Denies blurry vision ENT: Reports Normal hearing present Cardiovascular: Cardiovascular: Denies chest pain and Denies dyspnea Respiratory: Respiratory: Denies dyspnea and Denies wheezing Gastrointestinal: Gastrointestinal: Denies abdominal pain Genitourinary: Genitourinary: Denies urinary urgency Musculoskeletal: Musculoskeletal: Reports as per HPI and Denies numbness Integumentary/Breasts: Skin/Breast: Denies changing lesions and Denies sores Neurologic: Reports Normal hearing present, Denies behavioral changes, Denies confusion, Denies numbness and Denies convulsions Psychiatric: Psychiatric: Denies behavioral changes, Denies confusion and Denies hallucinations Endocrine: Endocrine: Denies heat intolerance Hematologic/Lymphatic: Hematologic/Lymphatic: Denies easy bleeding Allergic/Immunologic: Allergic/Immunologic: Denies wheezing PMFSH Past Medical History Medical History Air hunger Arthritis Bee sting Bunionette of right foot Callus of foot Cavovarus deformity of foot, acquired Chest wall pain Chronic rhinitis Colon cancer screening Decreased motility of stomach Hypertension Obesity (BMI 30.0-34.9) Painful orthopaedic hardware Plantar fasciitis, bilateral Seasonal allergies Vision loss Surgical History Surgical History History of colon surgery History of surgery Port-A-Cath placement, 2005 Status post abdominal hysterectomy Status post cholecystectomy Status post right hip replacement Family History Family History Mother Family history of cardiac disorder Father Family history of diabetes mellitus in first degree relative Family history of heart disease in male family member before age 55 Other Heart disease History of malignant neoplasm Hypertension Social History Social History Smoking packs per day: 1.5 Smoking cigarettes per day: 30.0 Years smoked: 15 Smoking pack-years: 22.50 Smoking status: Former smoker Tobacco type: cigarettes Smoking end date: 03/15/98 Alcohol intake: current Drinks per week: 1 Alcohol use details: 7-10 per week Substance use: never Substance use type: does not use Additional living arrangements comments: JUAN Gender identity (if verbalized by the patient): Female Spiritual care concerns: No Meds Home Medications and Allergies Home Medications Medication Instructions Recorded Confirmed Type aspirin [Aspirin Low Dose] 81 mg PO DAILY 08/16/19 04/25/21 History multivitamin [Daily Multi-Vitamin] 1 tablet PO DAILY 08/16/19 04/25/21 History omega 9-phy-caq-fish oil [Fish Oil] 2 cap PO DAILY 08/16/19 04/25/21 History conjugated estrogens 0.625 mg/gram 0.625 mg VAGINAL 2XW 12/12/19 04/25/21 History vaginal cream glucosamine sulfate 1,000 mg 1,000 mg PO DAILY 12/12/19 04/25/21 History capsule lactobacillus combination no.8 3 3,000 mmu cells PO DAILY 12/12/19 04/25/21 History billion cell capsule benazepril 10 mg tablet 10 mg PO DAILY #90 tablet 12/02/20 04/25/21 Rx amlodipine 10 mg tablet 10 mg PO DAILY 03/04/21 04/25/21 History Allergies Allergy/AdvReac Type Severity Reaction Status Date / Time cefaclor Allergy Mild Rash Verified 04/25/21 13:58 Cephalosporins Allergy Mild Rash Verified 04/25/21 13:58 Exam Const: General: healthy appearing; No in distress or confusion Orientation/consciousness: oriented to person, oriented to place,
[2021-05-05] VITALS (7 sets, daily range): BP systolic 113–142; BP diastolic 52–65; PULSE 43–52; RESP 10–18; TEMP 36.2–36.9; O2SAT 98–100
[2021-05-05] MEDS: LACTATED RINGERS 1,000 ML 30 ML IV CONT (07:05)
[2021-05-05] MEDS: ACETAMINOPHEN 500 MG TABLET 1000 MG PO (07:06)
--- NOTE | 2021-05-05 07:18 | WPDHPUPDATE1 ---
History and Physical Update Update Date/Time: 05/05/21 07:18 History and Physical has been reviewed, including an updated exam of the patient. There are NO changes in the patient's condition. Patient had ECHO and cardiac w/u. Cleared for surgery as planned. Risks, benefits, and alternatives have been discussed and questions answered. Patient agrees to proceed with procedure.
--- NOTE | 2021-05-05 07:42 | WPDANESEPPF ---
Anes - Initial Pre Proc Eval Procedure: Operation Date: 05/05/21 08:30 Proposed Procedures p Bilateral Heel [place] Shock Wave Treatment - Luke Turpin MD s Left Foot Hardware Removal - Luke Turpin MD Date/Time: 05/05/21 07:42 Surgeon: Luke Turpin MD Pre Op Diagnosis: marybel.plantar fasciitis/heel,lt foot hardware rem Patient Data Age: 65 Gender: F Height: 1.73 m Weight: 72.6 kg Last Vital Signs Temp 36.9 C 05/05/21 06:58 Pulse 49 L 05/05/21 06:58 Resp 18 05/05/21 06:58 BP 122/61 05/05/21 06:58 Pulse Ox 98 05/05/21 06:58 Allergies Allergy/AdvReac Type Severity Reaction Status Date / Time cefaclor Allergy Mild Rash Verified 05/05/21 07:25 Cephalosporins Allergy Mild Rash Verified 05/05/21 07:25 Home Medications Medication Instructions Recorded Confirmed Type aspirin [Aspirin Low Dose] 81 mg PO DAILY 08/16/19 05/05/21 History multivitamin [Daily Multi-Vitamin] 1 tablet PO DAILY 08/16/19 05/05/21 History omega 8-agk-cef-fish oil [Fish Oil] 2 cap PO DAILY 08/16/19 05/05/21 History conjugated estrogens 0.625 mg/gram 0.625 mg VAGINAL 2XW 12/12/19 05/05/21 History vaginal cream glucosamine sulfate 1,000 mg 1,000 mg PO DAILY 12/12/19 05/05/21 History capsule lactobacillus combination no.8 3 3,000 mmu cells PO DAILY 12/12/19 05/05/21 History billion cell capsule benazepril 10 mg tablet 10 mg PO DAILY #90 tablet 12/02/20 05/05/21 Rx amlodipine 10 mg tablet 10 mg PO DAILY 03/04/21 05/05/21 History Patient hx anesthesia problems: none Family hx anesthesia problems: none Results Review: All pre-operative results and documents have been reviewed as part of the pre-operative evaluation. [facility] Past Medical History Medical History Arthritis Bunionette of right foot Callus of foot Cavovarus deformity of foot, acquired Chronic rhinitis Hypertension Lymphoma Painful orthopaedic hardware Plantar fasciitis, bilateral Seasonal allergies Surgical History Surgical History History of colon surgery History of surgery Port-A-Cath placement, 2005 Status post abdominal hysterectomy Status post cholecystectomy Status post right hip replacement Family History Family History Mother Family history of cardiac disorder Father Family history of diabetes mellitus in first degree relative Family history of heart disease in male family member before age 55 Other Heart disease History of malignant neoplasm Hypertension Social History Social History Smoking packs per day: 1.5 Smoking cigarettes per day: 30.0 Years smoked: 15 Smoking pack-years: 22.50 Smoking status: Former smoker Tobacco type: cigarettes Smoking end date: 03/15/98 Alcohol intake: current Drinks per week: 1 Alcohol use details: 7-10 per week Substance use: never Substance use type: does not use Living arrangements: with family Additional living arrangements comments: JUAN Gender identity (if verbalized by the patient): Female Spiritual care concerns: No Anes - Eval Final PreProcedure Day of Procedure 05/05/21 07:42 Patient weight: normal Heart: regular rate and rhythm Lungs: clear to auscultation Airway: Mallampati scale class II Neurological: alert and oriented Last oral intake: >/= 8 hours ASA classification: II Emergent: no Anesthetic plan: proceed Anesthesia type and monitoring: general LMA and standard monitoring Results Review: All pre-operative results and documents have been reviewed as part of the pre-operative evaluation. Informed Consent: The patient's anesthetic plan and its attendant risks and benefits were discussed with the patient/family/POA. Questions were solicited and answers provided to the satisfaction of the
[2021-05-05] MEDS: CLINDAMYCIN 900 MG/D5W 50 ML 900 MG/50 ML PIGGYBACK 50 MG IVPB (08:29)
[2021-05-05] MEDS: BUPIVACAINE HCL 0.5% PF 30 ML VIAL INFILTRATE (09:32)
--- NOTE | 2021-05-05 09:41 | W.PM.PROC2 ---
Procedure Note - Detailed Date of Procedure 05/05/21 Pre-op Diagnosis marybel.plantar fasciitis/heel,lt foot painful hardware Post-op Diagnosis same Procedure Performed Bilateral heel [place] shockwave. Removal deep hardware left foot. Surgeon Luke Turpin MD Transmission Mechanic therapeutic assistant Anesthesia general Indications 65-year-old woman with bilateral heel pain. Recalcitrant to cortisone injections, physical therapy, stretching exercises and activity modification. Indicated for shockwave therapy. Also status post left foot surgery. Painful hardware over the dorsum of the midfoot. Desires removal. Description of Procedure Patient identified in the preoperative holding. Informed consent given. Operative extremity marked. Patient marked the area of maximal tenderness on both heels with indelible ink. Patient brought to the operating room where underwent general anesthesia by anesthesia team. Positioned supine on operating room table. Time-out performed confirming the patient, site of the surgery and the plan. Shockwave unit then positioned for the right heel. Ultrasound gel applied to the heel. Shockwave then applied to heel at an average of 19 kV for 2000 shock deliveries. Concentrated around area of marked maximal tenderness as well as diffusely plantar fascia, heel area. Shockwave unit then positioned for the left heel. Ultrasound gel applied to the heel. Shockwave then applied to heel at an average of 19 kV for 2000 shock deliveries. Concentrated around area of marked maximal tenderness as well as diffusely plantar fascia, heel area. Ultrasound gel then removed. Left foot hardware removal then addressed. After local anesthetic applied with 0.5% Marcaine plain the foot and ankle were exsanguinated and a calf tourniquet inflated to 220 mmHg. Fifteen blade knife used to make an incision over the dorsum of the left foot utilizing the previous incision surgical scar. Hemostasis controlled electrocautery. Dissection carried down to the fascia which was incised in line with skin incision. Extensor tendons retracted medially and the staple in the cuneiform identified. Osteotome used to loosen up the staple which was then removed. Bone edge was smoothed with a rongeur and bone tamp. Wound thoroughly irrigated solution. Good healing of the previous osteotomy site noted. Fascia closed with 3-0 Monocryl interrupted suture. Skin repaired with 4-0 nylon running suture. Sterile dressing applied. Tourniquet released. Patient awoken from anesthesia and taken to the recovery room in stable condition. Estimated Blood Loss 5 Tourniquet Time 25 Drains No Packing No Pathology none sent Complications None Condition stable Disposition PACU
--- NOTE | 2021-05-05 11:20 | SUR.PHASEII ---
This nurse spoke with dr Turpin and he said that pt can restart her asprin today
== END 2021-05-05 11:34 | disposition home or self-care (01) ==
PROVIDERS: PCP Internal Medicine; Visit Provider Orthopaedic Surgery
PROC: (CPT 28890; principal; 2021-05-05 08:30)
PROC: (CPT 28890; 2021-05-05 08:30)
DX: T84.84XA Pain due to internal orthopedic prosthetic devices, implants and grafts, initial encounter (principal); M72.2 Plantar fascial fibromatosis; Y83.8 Other surgical procedures as the cause of abnormal reaction of the patient, or of later complication, without mention of misadventure at the time of the procedure; M21.6X1 Other acquired deformities of right foot; M25.571 Pain in right ankle and joints of right foot; M25.572 Pain in left ankle and joints of left foot; Z79.82 Long term (current) use of aspirin; M19.90 Unspecified osteoarthritis, unspecified site; I10 Essential (primary) hypertension; Z85.72 Personal history of non-Hodgkin lymphomas; Z87.891 Personal history of nicotine dependence
CPT/HCPCS: 28890; 20680; A9270; J1040; J1100; J1200; J2001; J2250; J2405; J2704; J3010; J7120

== ENCOUNTER 2021-09-16 08:30 | Outpatient (CLI) | payer MEDICARE, OTHER, SELFPAY ==
[2021-09-16 08:58] LABS: Basophils Percent Auto 0.5 % (0.2-1.2); Eosinophils Absolute Auto 0.2 K/mm3 (0-0.3); Eosinophils Percent Auto 2.3 % (0-4.4); Hematocrit 37.1 % (37.0-47.0); Hemoglobin 12.3 g/dL (12.0-15.0); Immature Granulocyte Absolute 0.03 K/mm3 (0.00-0.031); Immature Granulocyte Percent A 0.3 % (0-0.5); Lymphocytes Absolute Auto 1.43 K/mm3 (0.9-3.2); Lymphocytes Percent Auto 16.2 % (18.3-44.2); Mean Corpuscular HGB Conc 33.2 g/dl (32-36); Mean Corpuscular Hemoglobin 29.4 pg (26-34); Mean Corpuscular Volume 88.8 fl (80-100); Mean Platelet Volume 9.6 fl (7.4-10.4); Monocytes Absolute Auto 0.7 K/mm3 (0.1-0.6); Monocytes Percent Auto 8.3 % (2.6-8.5); Neutrophils Absolute Auto 6.4 K/mm3 (1.3-6.7); Neutrophils Percent Auto 72.4 % (45.5-73.1); Platelet Count Result 220 k/mm3 (150-375); Red Blood Count 4.18 M/mm3 (4.2-5.4); Red Cell Distribution Width 12.5 % (11.5-14.5); White Blood Count 8.8 K/mm3 (4.5-10.0)
[2021-09-16 09:51] LABS: Alanine Aminotransferase 18 U/L (6-35); Albumin Level 3.8 g/dL (3.5-5.1); Alkaline Phosphatase 91 U/L (38-126); Anion Gap 5 mmol/L (8-16); Aspartate Amino Transferase 24 U/L (14-36); Bilirubin,Total 0.4 mg/dL (0.2-1.3); Blood Urea Nitrogen 21 mg/dL (7-17); Carbon Dioxide 28 mmol/L (22-30); Chloride 102 mmol/L (98-107); Estimated Glomerular Filt Rate > 60; Glucose 108 mg/dL (65-110); Lactate Dehydrogenase 381 U/L (313-618); Potassium 4.2 mmol/L (3.4-5.0); Sodium 135 mmol/L (137-145)
== END 2021-09-16 08:31 | disposition home or self-care (01) ==
LOC: ANHLAB 08:32
PROVIDERS: PCP Family Medicine; Visit Provider Internal Medicine Hematology & Oncology
DX: C82.90 Follicular lymphoma, unspecified, unspecified site (principal)
CPT/HCPCS: 36415; 80053; 83615; 85025

== ENCOUNTER → 2022-02-26 15:05 | Outpatient (CLI) | payer MEDICARE, OTHER, SELFPAY ==
--- NOTE | ~2022-02-26 | MM_ITS ---
EXAMINATION: MM screening ad BI w eulogio HISTORY: Screening TECHNIQUE: Craniocaudal and mediolateral oblique 3-D tomosynthesis images were obtained and synthetic 2-D images were generated. CAD analysis was submitted and interpreted. COMPARISON: Comparison to multiple prior studies sequentially, with oldest reviewed study dated 12/13. BREAST PARENCHYMAL COMPOSITION: There are scattered areas of fibroglandular density. FINDINGS: There is no evidence of suspicious mass, calcification, or architectural distortion to sugg est malignancy in either breast. There has been no suspicious interval change. IMPRESSION: 1. No mammographic evidence of malignancy. 2. Recommend routine screening mammography in one year. BI-RADS Category 1: Negative Reviewed, dictated and finalized at location B. AL DEVELOPER
== END ==
PROVIDERS: PCP Family Medicine; Visit Provider Nurse Practitioner Obstetrics & Gynecology
DX: Z12.31 Encounter for screening mammogram for malignant neoplasm of breast (principal)
CPT/HCPCS: 77063; 77067

== ENCOUNTER 2022-09-16 08:16 | Outpatient (CLI) | payer MEDICARE, OTHER, SELFPAY ==
[2022-09-16 08:44] LABS: Basophils Percent Auto 0.7 % (0.2-1.2); Eosinophils Absolute Auto 0.2 K/mm3 (0-0.3); Eosinophils Percent Auto 3.4 % (0-4.4); Hematocrit 39.3 % (37.0-47.0); Hemoglobin 12.9 g/dL (12.0-15.0); Immature Granulocyte Absolute 0.02 K/mm3 (0.00-0.031); Immature Granulocyte Percent A 0.4 % (0-0.5); Immature Platelet Fraction Pct 5.5 % (0.9-11.2); Lymphocytes Absolute Auto 0.92 K/mm3 (0.9-3.2); Lymphocytes Percent Auto 17.2 % (18.3-44.2); Mean Corpuscular HGB Conc 32.8 g/dl (32-36); Mean Corpuscular Hemoglobin 29.9 pg (26-34); Mean Platelet Volume 10.9 fl (7.4-10.4); Monocytes Absolute Auto 0.6 K/mm3 (0.1-0.6); Monocytes Percent Auto 10.7 % (2.6-8.5); Neutrophils Absolute Auto 3.6 K/mm3 (1.3-6.7); Neutrophils Percent Auto 67.6 % (45.5-73.1); Platelet Count Result 128 k/mm3 (150-375); Red Blood Count 4.32 M/mm3 (4.2-5.4); Red Cell Distribution Width 12.6 % (11.5-14.5); White Blood Count 5.4 K/mm3 (4.5-10.0)
[2022-09-16 09:19] LABS: Alanine Aminotransferase 27 U/L (6-35); Albumin Level 4.1 g/dL (3.5-5.1); Alkaline Phosphatase 91 U/L (38-126); Anion Gap 2 mmol/L (8-16); Aspartate Amino Transferase 32 U/L (14-36); Bilirubin,Total 0.6 mg/dL (0.2-1.3); Blood Urea Nitrogen 23 mg/dL (7-17); Calcium 9.2 mg/dL (8.4-10.2); Carbon Dioxide 32 mmol/L (22-30); Chloride 104 mmol/L (98-107); Estimated Glomerular Filt Rate > 60; Glucose 91 mg/dL (65-110); Lactate Dehydrogenase 177 U/L (120-246); Potassium 4.6 mmol/L (3.4-5.0); Sodium 138 mmol/L (137-145)
== END 2022-09-16 08:17 | disposition home or self-care (01) ==
LOC: ANHLAB 08:18
PROVIDERS: PCP Family Medicine; Visit Provider Internal Medicine Hematology & Oncology
DX: C82.90 Follicular lymphoma, unspecified, unspecified site (principal)
CPT/HCPCS: 36415; 80053; 83615; 85025; 85055

== ENCOUNTER 2023-02-10 10:54 | Outpatient (CLI) | payer MEDICARE, OTHER, SELFPAY ==
[2023-02-10 11:11] LABS: Basophils Percent Auto 0.5 % (0.2-1.2); Eosinophils Absolute Auto 0.2 K/mm3 (0-0.3); Eosinophils Percent Auto 2.9 % (0-4.4); Hematocrit 39.1 % (37.0-47.0); Hemoglobin 13.1 g/dL (12.0-15.0); Immature Granulocyte Absolute 0.03 K/mm3 (0.00-0.031); Immature Granulocyte Percent A 0.5 % (0-0.5); Immature Platelet Fraction Pct 5.1 % (0.9-11.2); Lymphocytes Absolute Auto 1.06 K/mm3 (0.9-3.2); Lymphocytes Percent Auto 19.2 % (18.3-44.2); Mean Corpuscular HGB Conc 33.5 g/dl (32-36); Mean Corpuscular Hemoglobin 29.7 pg (26-34); Mean Corpuscular Volume 88.7 fl (80-100); Mean Platelet Volume 10.5 fl (7.4-10.4); Monocytes Absolute Auto 0.6 K/mm3 (0.1-0.6); Monocytes Percent Auto 10.3 % (2.6-8.5); Neutrophils Absolute Auto 3.7 K/mm3 (1.3-6.7); Neutrophils Percent Auto 66.6 % (45.5-73.1); Platelet Count Result 133 k/mm3 (150-375); Red Blood Count 4.41 M/mm3 (4.2-5.4); Red Cell Distribution Width 12.6 % (11.5-14.5); White Blood Count 5.5 K/mm3 (4.5-10.0)
[2023-02-10 14:10] LABS: Alanine Aminotransferase 32 U/L (6-35); Albumin Level 4.2 g/dL (3.5-5.1); Alkaline Phosphatase 97 U/L (38-126); Anion Gap 11 mmol/L (8-16); Aspartate Amino Transferase 39 U/L (14-36); Bilirubin,Total 0.9 mg/dL (0.2-1.3); Blood Urea Nitrogen 24 mg/dL (7-17); Calcium 9.5 mg/dL (8.4-10.2); Carbon Dioxide 25 mmol/L (22-30); Chloride 101 mmol/L (98-107); Estimated Glomerular Filt Rate > 60; Glucose 84 mg/dL (65-110); Lactate Dehydrogenase 210 U/L (120-246); Potassium 4.3 mmol/L (3.4-5.0); Sodium 137 mmol/L (137-145)
== END 2023-02-10 10:55 | disposition home or self-care (01) ==
LOC: ANHLAB 10:57
PROVIDERS: PCP Family Medicine; Visit Provider Internal Medicine Hematology & Oncology
DX: C82.90 Follicular lymphoma, unspecified, unspecified site (principal)
CPT/HCPCS: 36415; 80053; 83615; 85025; 85055

== ENCOUNTER → 2023-02-22 10:24 | Outpatient (CLI) | payer MEDICARE, OTHER, SELFPAY ==
--- NOTE | ~2023-02-22 | XR_ITS ---
Right Shoulder Technique: AP and axillary views were obtained. Clinical History: Pain Findings: No fracture or dislocation is seen. Osseous alignment is anatomic. There is moderate AC chika nt degenerative change. Glenohumeral joint is intact. Soft tissues are unremarkable. Impression: Moderate AC joint degenerative change. Reviewed, dictated and finalized at location . WRITER / RUNNER Impression: Moderate AC joint degenerative change.
--- NOTE | ~2023-02-22 | XR_ITS ---
Left Shoulder Technique: AP and axillary views were obtained. Clinical History: Pain Findings: No fracture or dislocation is seen. Osseous alignment is anatomic. There is uqyb-qh-ivxrwgh e AC joint degenerative change. Glenohumeral joint is intact. Soft tissues are unremarkable. Impression: Evrm-rs-milzltto AC joint degenerative change. Reviewed, dictated and finalized at location . VIOR ANALYST Impression: Umdw-dy-dbciqmss AC joint degenerative change.
== END ==
PROVIDERS: PCP Family Medicine; Visit Provider Family Medicine
DX: M19.011 Primary osteoarthritis, right shoulder (principal); M19.012 Primary osteoarthritis, left shoulder
CPT/HCPCS: 73030

== ENCOUNTER → 2023-03-01 07:13 | Outpatient (CLI) | payer MEDICARE, OTHER, SELFPAY ==
--- NOTE | ~2023-03-01 | MM_ITS ---
EXAMINATION: MM screening ad BI w eulogio HISTORY: Screening mammogram TECHNIQUE: Craniocaudal and mediolateral oblique 3-D tomosynthesis images were obtained and synthetic 2-D images were generated. CAD analysis was submitted and interpreted. COMPARISON: No prior mammogram is available for comparison at this institution. BREAST PARENCHYMAL COMPOSITION: The breasts are almost entirely fatty. FINDINGS: There is no evidence of suspicious mass, calcification, or architectural distortion to sugg est malignancy in either breast. There has been no suspicious interval change. IMPRESSION: 1. No mammographic evidence of malignancy. 2. Recommend routine screening mammography in one year. BI-RADS Category 1: Negative Reviewed, dictated and finalized at location A. ICK MAN
== END ==
PROVIDERS: PCP Family Medicine; Visit Provider Nurse Practitioner Obstetrics & Gynecology
DX: Z12.31 Encounter for screening mammogram for malignant neoplasm of breast (principal)
CPT/HCPCS: 77063; 77067

== ENCOUNTER 2023-08-04 08:39 | Outpatient (CLI) | payer MEDICARE, OTHER, SELFPAY ==
[2023-08-04 20:17] LABS: Alanine Aminotransferase 19 U/L (6-35); Alkaline Phosphatase 90 U/L (38-126); Anion Gap 6 mmol/L (4-12); Aspartate Amino Transferase 41 U/L (14-36); Bilirubin,Total 1.1 mg/dL (0.2-1.3); Blood Urea Nitrogen 33 mg/dL (7-17); Calcium 9.5 mg/dL (8.4-10.2); Carbon Dioxide 26 mmol/L (22-30); Chloride 105 mmol/L (98-107); Cholesterol 181 mg/dL (0-200); Estimated Glomerular Filt Rate > 60; Glucose 71 mg/dL (65-110); HDL Direct 66 mg/dL; Potassium 4.7 mmol/L (3.4-5.0); Sodium 137 mmol/L (137-145); Triglycerides 58 mg/dL (<150)
[2023-08-04 20:28] LABS: LDL Cholesterol Direct 91 mg/dL
== END 2023-08-04 08:40 | disposition home or self-care (01) ==
PROVIDERS: PCP Family Medicine; Visit Provider Family Medicine
DX: E78.5 Hyperlipidemia, unspecified (principal); Z13.220 Encounter for screening for lipoid disorders; Z13.228 Encounter for screening for other metabolic disorders
CPT/HCPCS: 36415; 80053; 80061

== ENCOUNTER 2023-09-22 06:48 | Day surgery (SDC) | payer MEDICARE, OTHER, SELFPAY ==
[2023-09-09 13:21] VITALS: BMI 25.4
[2023-09-09 14:24] VITALS: BMI 23.6
--- NOTE | 2023-09-21 13:47 | WPDANESEPPF ---
Anes - Initial Pre Proc Eval Procedure: Operation Date: 09/22/23 08:30 Proposed Procedures p Diagnostic Colonoscopy - Maynor Russell MD Date/Time: 09/21/23 13:47 Surgeon: Maynor Russell MD Pre Op Diagnosis: History of colon polyps Patient Data Age: 68 Gender: F Height: 1.75 m Weight: 72.5 kg Allergies Allergy/AdvReac Type Severity Reaction Status Date / Time cefaclor Allergy Mild Rash Verified 09/22/23 07:51 Cephalosporins Allergy Mild Rash Verified 09/22/23 07:51 Home Medications Medication Instructions Recorded Confirmed Type multivitamin (Daily Multi-Vitamin 1 tablet PO DAILY 08/16/19 09/22/23 History tablet) omega 2-jui-oqd-fish oil 1,000 mg 2 cap PO DAILY 08/16/19 09/22/23 History (120 mg-180 mg) capsule (Fish Oil) glucosamine sulfate 1,000 mg 1,000 mg PO DAILY 12/12/19 09/22/23 History capsule benazepril 10 mg tablet (Lotensin) 10 mg PO DAILY #90 tabs 05/14/23 09/22/23 Rx amlodipine 10 mg tablet 10 mg PO DAILY #90 tabs 08/12/23 09/22/23 Rx Patient hx anesthesia problems: none Family hx anesthesia problems: none Results Review: All pre-operative results and documents have been reviewed as part of the pre-operative evaluation. [facility] Past Medical History Medical History Arthritis Bunionette of right foot Callus of foot Cavovarus deformity of foot, acquired Chronic rhinitis Encounter for postoperative care Hypertension Lymphoma Painful orthopaedic hardware Plantar fasciitis, bilateral Seasonal allergies Surgical History Surgical History History of colon surgery History of surgery Port-A-Cath placement, 2005 Status post abdominal hysterectomy Status post cholecystectomy Status post right hip replacement Family History Family History Mother Family history of cardiac disorder Father Family history of diabetes mellitus in first degree relative Family history of heart disease in male family member before age 55 Other Heart disease History of malignant neoplasm Hypertension Social History Social History Smoking status: Never smoker Tobacco type: cigarettes Smoking end date: 03/15/98 Alcohol intake: never Drinks per week: 1 Alcohol use details: 7-10 per week Substance use: never Substance use type: does not use Lack of Transportation: No Lack of Food: Never True Current Housing: I Have Housing Concerned About Future Housing: No Difficulty Paying Gas/Electric Bills: No Difficulty Paying for Meds: No Currently Unemployed: No Education: High School Diploma/GED Difficulty w/ Childcare or Family Care: No Living arrangements: with family Additional living arrangements comments: JUAN Occupation/Education: retired Gender identity (if verbalized by the patient): Female Spiritual care concerns: No Anes - Eval Final PreProcedure Day of Procedure 09/21/23 13:47 Patient weight: normal Heart: regular rate and rhythm Lungs: clear to auscultation and normal air movement Airway: Mallampati scale class II Neurological: alert and oriented Last oral intake: >/= 8 hours ASA classification: II Emergent: no Anesthetic plan: proceed Anesthesia type and monitoring: general GIVS and standard monitoring Results Review: All pre-operative results and documents have been reviewed as part of the pre-operative evaluation. Informed Consent: The patient's anesthetic plan and its attendant risks and benefits were discussed with the patient/family/POA. Questions were solicited and answers provided to the satisfaction of the patient/family/POA.
[2023-09-22 07:40] VITALS: BP 123/70; PULSE 55; RESP 17; TEMP 36.6; O2SAT 99; BMI 24.5
[2023-09-22] MEDS: LACTATED RINGERS 1,000 ML 150 ML IV CONT (07:41)
--- NOTE | 2023-09-22 07:49 | PM.HPGS ---
History of Present Illness History of Present Illness Consent: Risks, benefits, and alternatives have been discussed and questions answered. Patient agrees to proceed with procedure. Chief complaint: History of colon polyps Narrative: Carmelina Brooks is a 68 year old female presents for screening colonoscopy. Patient reports a sense of fecal urgency. She is taking fiber supplementation and previous diarrhea has lessened. Patient denies any blood in her stools. Two thousand seven had partial colectomy for a dysplastic colon polyp. She has had recurrent prep colon polyps in several previous exams. Family history is noncontributory. Patient presents today for follow-up examination. Review of Systems Review of Systems: All systems reviewed & are unremarkable except as noted in HPI and below PMFSH Past Medical History Medical History Arthritis Bunionette of right foot Callus of foot Cavovarus deformity of foot, acquired Chronic rhinitis Encounter for postoperative care Hypertension Lymphoma Painful orthopaedic hardware Plantar fasciitis, bilateral Seasonal allergies Surgical History Surgical History History of colon surgery History of surgery Port-A-Cath placement, 2005 Status post abdominal hysterectomy Status post cholecystectomy Status post right hip replacement Family History Family History Mother Family history of cardiac disorder Father Family history of diabetes mellitus in first degree relative Family history of heart disease in male family member before age 55 Other Heart disease History of malignant neoplasm Hypertension Social History Social History Smoking status: Never smoker Tobacco type: cigarettes Smoking end date: 03/15/98 Alcohol intake: never Drinks per week: 1 Alcohol use details: 7-10 per week Substance use: never Substance use type: does not use Lack of Transportation: No Lack of Food: Never True Current Housing: I Have Housing Concerned About Future Housing: No Difficulty Paying Gas/Electric Bills: No Difficulty Paying for Meds: No Currently Unemployed: No Education: High School Diploma/GED Difficulty w/ Childcare or Family Care: No Living arrangements: with family Additional living arrangements comments: HUSB Occupation/Education: retired Gender identity (if verbalized by the patient): Female Spiritual care concerns: No Meds Home Medications and Allergies Home Medications Medication Instructions Recorded Confirmed Type multivitamin (Daily Multi-Vitamin 1 tablet PO DAILY 08/16/19 09/22/23 History tablet) omega 9-zqq-pdp-fish oil 1,000 mg 2 cap PO DAILY 08/16/19 09/22/23 History (120 mg-180 mg) capsule (Fish Oil) glucosamine sulfate 1,000 mg 1,000 mg PO DAILY 12/12/19 09/22/23 History capsule benazepril 10 mg tablet (Lotensin) 10 mg PO DAILY #90 tabs 05/14/23 09/22/23 Rx amlodipine 10 mg tablet 10 mg PO DAILY #90 tabs 08/12/23 09/22/23 Rx Allergies Allergy/AdvReac Type Severity Reaction Status Date / Time cefaclor Allergy Mild Rash Verified 09/22/23 07:51 Cephalosporins Allergy Mild Rash Verified 09/22/23 07:51 Exam Narrative: Physical exam reveals patient to be alert. Signs stable. Exam is unremarkable. Patient is anicteric. Lungs are clear to auscultation and percussion. Heart is without murmur or extra sounds. Abdomen bowel sounds are present soft nontender with no organomegaly. Digital external rectal exam normal. Assessment and Plan Assessment and plan (1) History of colonic polyps: Code(s): Z86.010 - Personal history of colonic polyps Status: Acute Assessment and Plan: Patient has a history of colon this in the past. Plan for follow-up surveillance col
[2023-09-22] MEDS: SIMETHICONE ORAL SUSPENSION 20 MG/0.3 ML 30 ML BOTTLE 0.6 ML IRRIGATION (08:45)
[2023-09-22 08:51] VITALS: BP 103/66; PULSE 59; RESP 16; O2SAT 99
[2023-09-22 09:01] VITALS: BP 120/64; PULSE 57; RESP 16; O2SAT 99
[2023-09-22 09:11] VITALS: BP 130/63; PULSE 51; RESP 16; O2SAT 100
--- NOTE | 2023-09-22 15:04 | WPDANESPN ---
Anes - Prog Note Post-Op Date/Time: 09/22/23 15:04 Cardiovascular status: normal Respiratory status: normal Airway patency: baseline Mental status: baseline Post-Op hydration status: normal Vital Signs: Last Vital Signs Temp 36.6 C 09/22/23 07:40 Pulse 51 L 09/22/23 09:11 Resp 16 09/22/23 09:11 BP 130/63 09/22/23 09:11 Pulse Ox 100 09/22/23 09:11 O2 Del Method Room Air 09/22/23 09:11 Pain Score (VAS): 0 I/O: Intake & Output 09/21/23 09/22/23 09/22/23 23:59 07:59 15:59 Intake Total 400 Balance 400 Post-procedural complaints: none Patient Feedback: Patient satisfied with anesthetic care. Other Findings: Patient vital signs back to baseline. Patient denies nausea and vomiting. Patient's pain under control. Patient OK for discharge.
== END 2023-09-22 09:15 | disposition home or self-care (01) ==
PROVIDERS: PCP Family Medicine; Visit Provider Internal Medicine Gastroenterology
PROC: 0DJD8ZZ Inspection of Lower Intestinal Tract, Via Natural or Artificial Opening Endoscopic (ICD-10-PCS; CPT 45378; principal; 2023-09-22 08:30)
DX: Z86.010 Personal history of colon polyps (principal); K64.8 Other hemorrhoids
CPT/HCPCS: G0105

== ENCOUNTER 2023-11-01 10:10 | Outpatient (CLI) | payer MEDICARE, OTHER, SELFPAY ==
[2023-11-01 14:27] LABS: Basophils Percent Auto 0.7 % (0.2-1.2); Eosinophils Absolute Auto 0.2 K/mm3 (0-0.3); Eosinophils Percent Auto 2.7 % (0-4.4); Hematocrit 43.4 % (37.0-47.0); Hemoglobin 14.1 g/dL (12.0-15.0); Immature Granulocyte Absolute 0.01 K/mm3 (0.00-0.031); Immature Granulocyte Percent A 0.2 % (0-0.5); Lymphocytes Absolute Auto 0.65 K/mm3 (0.9-3.2); Lymphocytes Percent Auto 11.5 % (18.3-44.2); Mean Corpuscular HGB Conc 32.5 g/dl (32-36); Mean Corpuscular Hemoglobin 29.3 pg (26-34); Mean Corpuscular Volume 90.2 fl (80-100); Mean Platelet Volume 11.5 fl (7.4-10.4); Monocytes Absolute Auto 0.6 K/mm3 (0.1-0.6); Monocytes Percent Auto 10.5 % (2.6-8.5); Neutrophils Absolute Auto 4.2 K/mm3 (1.3-6.7); Neutrophils Percent Auto 74.4 % (45.5-73.1); Platelet Count Result 167 k/mm3 (150-375); Red Blood Count 4.81 M/mm3 (4.2-5.4); Red Cell Distribution Width 12.6 % (11.5-14.5); White Blood Count 5.6 K/mm3 (4.5-10.0)
== END 2023-11-01 10:11 | disposition home or self-care (01) ==
LOC: ANHGOSHLAB 10:12
PROVIDERS: PCP Family Medicine; Visit Provider Student in an Organized Health Care Education/Training Program
DX: R06.02 Shortness of breath (principal)
CPT/HCPCS: 36415; 85025

== ENCOUNTER 2023-11-01 10:29 | Outpatient (CLI) | payer MEDICARE, OTHER, SELFPAY ==
--- NOTE | ~2023-11-01 | XR_ITS ---
EXAMINATION: XR chest 2V DATE: 11/01/2023 10:54 INDICATION: Shortness of breath. TECHNIQUE: Frontal and lateral views of the chest were obtained. COMPARISON: Chest 2 views 09/17/2015 FINDINGS: There is a moderate-sized right pleural effusion. There are airspace opacities at right simon g base. No pneumothorax. The heart size is normal. Surgical clips in the right upper quadrant are lik niranjan from cholecystectomy. IMPRESSION: 1. Moderate-sized right pleural effusion. 2. Airspace opacities at right lung base, consistent with atelectasis versus pneumonia. Reviewed, dictated and finalized at location A. IMPRESSION: 1. Moderate-sized right pleural effusion. 2. Airspace opacities at right lung base, consistent with atelectasis versus pn eumonia.
== END 2023-11-01 10:30 ==
PROVIDERS: PCP Family Medicine; Visit Provider Student in an Organized Health Care Education/Training Program
DX: R06.02 Shortness of breath (principal); J90 Pleural effusion, not elsewhere classified
CPT/HCPCS: 71046

== ENCOUNTER 2023-11-05 07:22 | Outpatient (CLI) | payer MEDICARE, OTHER, SELFPAY ==
[2023-11-03 12:52] VITALS: BMI 24.4
--- NOTE | 2023-11-03 12:53 | PC.NURSE ---
Pre Radiology instructions Report to the outpatient tegan paradadarshanky on date _[id number]_ at time _0730_ for procedure Time: _929_ YOU MAY BE MONITORED AT HOSPITAL FOR UP TO 4 HOURS AFTER YOUR PROCEDURE. A visitor will be allowed to accompany the patient into the hospital. You and your visitor will be asked to self-screen and do not enter if you have any COVID symptoms. A mask is OPTIONAL within the hospital. Patients are to have no food or drink 6 hours prior to procedure time Driving will be restricted after the procedure, you must have a person to drive you home. Labs will be drawn in preop area and once reviewed, you will be taken to radiology area for procedure. When the procedure is completed, you will be taken to outpatient where you will be monitored for several hours. You may have one visitor in this area. Other than holding anti-coagulants, patient may take other medication(s) as scheduled. Prior to your appointment date patients are instructed to hold anti-coagulants after discussing with ordering provider to stop. If unable to discontinue anti-coagulants please notify radiologist. ? No aspirin or warfarin (Coumadin) for 7 days prior to the procedure. ? No clopidogrel (Plavix), ticagrelor (Brilinta), prasugrel (Effient) or dabigatran (Pradaxa) for 5 days prior to the procedure. ? No rivaroxaban (Xarelto), apixaban (Eliquis), dipyridamole (Aggrenox or Persantine) or cilostazol (Pletal) for 2 days prior to the procedure. Medications to discontinue per physician: Date to take last dose: Please leave all valuables, including medications, at home the day of procedure. The hospital will not accept responsibility for valuables. Wear comfortable, loose fitting clothing.? Follow any additional instructions given to you from ordering provider. Telephone instructions given to __Dialeidye__and asked if any additional questions and then verbalized understanding. Patient advised to call scheduling provider office or registration scheduling [phone] if any additional questions.
[2023-11-05] VITALS (7 sets, daily range): BP systolic 105–131; BP diastolic 57–90; PULSE 49–60; RESP 16; TEMP 36.2; O2SAT 99–100
--- NOTE | ~2023-11-05 | XR_ITS ---
EXAMINATION: [id number] DATE: 11/05/2023 09:51 INDICATION: Right pleural effusion status post thoracentesis. TECHNIQUE: A single frontal view of the chest was obtained. COMPARISON: Chest 2 views 11/01/2023 FINDINGS: There is a moderate-sized right pleural effusion with interval improvement. There is a 2 cm nodule in right midlung zone. No pneumothorax. The heart size is normal. IMPRESSION: 1. Moderate-sized right pleural effusion with improvement status post thoracentesis. 2. 2 cm nodule in right midlung zone, which may be malignancy or a loculated component of the pleural effusion. Chest CT with contrast is recommended. Reviewed, dictated and finalized at location A. IMPRESSION: 1. Moderate-sized right pleural effusion with improvement status post thoracent esis. 2. 2 cm nodule in right midlung zone, which may be malignancy or a loculated co mponent of the pleural effusion. Chest CT with contrast is recommended.
--- NOTE | ~2023-11-05 | US_ITS ---
EXAMINATION: US thoracentesis DATE: 11/05/2023 09:57 INDICATION: pleural effusion TECHNIQUE: The procedure and its risks, benefits, and alternatives were discussed with the patient. P otential risks discussed included bleeding, infection, and pneumothorax. The patient understood the r isks and agreed to proceed. The skin was prepped and draped in sterile fashion. 1% lidocaine was used for local anesthesia. Under ultrasound guidance, a 5 Fr catheter with trochar was advanced into the right pleural effusion. Fluid was aspirated. The catheter was removed, and a dressing was applied. Th ere were no immediate complications. FINDINGS: Ultrasound images demonstrate a right pleural effusion and the catheter within the fluid. IMPRESSION: 1. Successful ultrasound-guided thoracentesis yielding 1000 mL of marivel-colored fluid. 2. The postoperative chest radiograph demonstrated a right lung nodule that could be malignancy or a loculation of the pleural effusion. Chest CT with contrast is recommended. Reviewed, dictated and finalized at location A. IMPRESSION: 1. Successful ultrasound-guided thoracentesis yielding 1000 mL of marivel-colore d fluid. 2. The postoperative chest radiograph demonstrated a right lung nodule that cou ld be malignancy or a loculation of the pleural effusion. Chest CT with contras t is recommended.
[2023-11-05 08:33] LABS: Prothrombin Time 13.5 Seconds (11.1-14.7)
== END 2023-11-05 11:38 | disposition home or self-care (01) ==
PROVIDERS: PCP Family Medicine; Referring Provider Nurse Practitioner Family; Visit Provider Radiology Diagnostic Radiology
DX: J90 Pleural effusion, not elsewhere classified (principal); Z01.818 Encounter for other preprocedural examination; R91.1 Solitary pulmonary nodule
CPT/HCPCS: 32555; 36415; 85610; 88108; 88305

== ENCOUNTER 2023-11-09 12:19 | Outpatient (CLI) | payer MEDICARE, OTHER, SELFPAY ==
--- NOTE | ~2023-11-09 | CT_ITS ---
EXAMINATION:CT chest high resolution w con DATE: 11/09/2023 13:05 INDICATION: Solitary pulmonary nodule. TECHNIQUE: Computed tomography (CT) of the chest was performed with 75 mL Omnipaque 350 intravenous c ontrast. Automated exposure control and iterative reconstruction technique were employed. The dose-le ngth product (DLP) was 198.72 mGy-cm. COMPARISON: Chest CT 08/16/2007, chest single view 11/05/2023 FINDINGS: There is mild emphysema. There is a moderate-sized right pleural effusion. There is nodular pleural thickening in right hemithorax. There is mild atelectasis in right lung with a dependent pre dominance. There is a 9 mm nodule in left thyroid lobe, likely not clinically significant. There is m ediastinal lymphadenopathy with the largest node measuring 2.8 x 1.9 cm. There are changes of cholecy stectomy. There is moderate thoracic spondylosis. IMPRESSION: 1. Moderate-sized right pleural effusion. 2. Nodular pleural thickening in right hemithorax and mediastinal lymphadenopathy. Cytology from rece nt thoracentesis demonstrated lymphoma. Reviewed, dictated and finalized at location A. IMPRESSION: 1. Moderate-sized right pleural effusion. 2. Nodular pleural thickening in right hemithorax and mediastinal lymphadenopat hy. Cytology from recent thoracentesis demonstrated lymphoma.
[2023-11-09 12:56] LABS: Estimated Glomerular Filt Rate 55
== END 2023-11-09 12:20 ==
PROVIDERS: PCP Internal Medicine Hematology & Oncology; Visit Provider Family Medicine
DX: R91.1 Solitary pulmonary nodule (principal); J90 Pleural effusion, not elsewhere classified; R59.0 Localized enlarged lymph nodes
CPT/HCPCS: 71260; Q9967

== ENCOUNTER 2023-11-16 09:46 | Outpatient (CLI) | payer MEDICARE, OTHER, SELFPAY ==
--- NOTE | 2023-11-12 08:26 | PC.NURSE ---
Pre Radiology instructions Report to the Imaging Entrance in the [facility] on date __11/16/23___ at time ___10:00am____ for procedure Time: _10:30am___ YOU MAY BE MONITORED AT HOSPITAL FOR UP TO 4 HOURS AFTER YOUR PROCEDURE. A visitor will be allowed to accompany the patient into the hospital. You and your visitor will be asked to self-screen and do not enter if you have any COVID symptoms. A mask is OPTIONAL within the hospital. Patients are to have no food or drink 6 hours prior to procedure time Driving will be restricted after the procedure, you must have a person to drive you home. When the procedure is completed, you will be taken to outpatient where you will be monitored for several hours. You may have one visitor in this area. Other than holding anti-coagulants, patient may take other medication(s) as scheduled. Prior to your appointment date patients are instructed to hold anti-coagulants after discussing with ordering provider to stop. If unable to discontinue anti-coagulants please notify radiologist. ? No aspirin or warfarin (Coumadin) for 7 days prior to the procedure. ? No clopidogrel (Plavix), ticagrelor (Brilinta), prasugrel (Effient) or dabigatran (Pradaxa) for 5 days prior to the procedure. ? No rivaroxaban (Xarelto), apixaban (Eliquis), dipyridamole (Aggrenox or Persantine) or cilostazol (Pletal) for 2 days prior to the procedure. Medications to discontinue per physician: __None Date to take last dose: None Please leave all valuables, including medications, at home the day of procedure. The hospital will not accept responsibility for valuables. Wear comfortable, loose fitting clothing.? Follow any additional instructions given to you from ordering provider. Telephone instructions given to __Patient and asked if any additional questions and then verbalized understanding. Patient advised to call scheduling provider office or registration scheduling [phone] if any additional questions.
[2023-11-12 08:30] VITALS: BMI 24.0
[2023-11-16] VITALS (7 sets, daily range): BP systolic 117–140; BP diastolic 52–77; PULSE 49–56; RESP 16; O2SAT 96–99
--- NOTE | ~2023-11-16 | XR_ITS ---
EXAMINATION: [id number] DATE: 11/16/2023 10:45 INDICATION: Status post right thoracentesis TECHNIQUE: frontal view of the chest was obtained. COMPARISON: Chest radiograph dated 11/05/[address] dated 11/09/2023 FINDINGS: Small right pleural effusion at the right lower lung zone with associated basilar atelectasis. There are subtle nodular opacities projecting over the right midlung zone which likely corresponds to the n odular pleural thickening evident on prior CT. Left lung remains clear. No pulmonary edema, pneumotho rax or left-sided pleural effusion. Heart size is normal. Cholecystectomy clips in right upper quadra nt. IMPRESSION: 1. Small residual right pleural effusion with right basilar atelectasis post right thoracentesis. 2. Subtle nodular opacities projecting over the right midlung zone likely related to nodular pleural thickening better appreciated on prior CT and likely related to known lymphoma. Reviewed, dictated and finalized at location A. IMPRESSION: 1. Small residual right pleural effusion with right basilar atelectasis post ri ght thoracentesis. 2. Subtle nodular opacities projecting over the right midlung zone likely relat ed to nodular pleural thickening better appreciated on prior CT and likely rela leandra to known lymphoma.
--- NOTE | ~2023-11-16 | US_ITS ---
EXAMINATION: US thoracentesis DATE: 11/16/2023 10:53 INDICATION: Right pleural effusion TECHNIQUE: The procedure and its risks and benefits were discussed with the patient. Potential risks discussed included bleeding, infection, and pneumothorax. The patient understood the risks and agreed to proceed. The skin was prepped and draped in sterile fashion. 1% lidocaine was used for local anes thesia. Under ultrasound guidance, a 5 Fr catheter with trochar was advanced into the right pleural e ffusion. Fluid was aspirated. The catheter was removed, and a dressing was applied. There were no imm ediate complications. FINDINGS: Ultrasound images demonstrate a moderate-sized right pleural effusion and the catheter within the flu id. IMPRESSION: 1. Successful ultrasound-guided thoracentesis yielding 1100 mL of cloudy yellow fluid. Reviewed, dictated and finalized at location A. IMPRESSION: 1. Successful ultrasound-guided thoracentesis yielding 1100 mL of cloudy yello w fluid.
== END 2023-11-16 12:42 | disposition home or self-care (01) ==
PROVIDERS: Radiology Diagnostic Radiology; PCP Family Medicine; Visit Provider Internal Medicine Hematology & Oncology
DX: J90 Pleural effusion, not elsewhere classified (principal); J98.11 Atelectasis
CPT/HCPCS: 32555; 36415; 80053; 83615; 85025

== ENCOUNTER 2023-11-16 12:51 | Outpatient (CLI) | payer MEDICARE, OTHER, SELFPAY ==
[2023-11-16 13:23] LABS: Basophils Percent Auto 0.6 % (0.2-1.2); Eosinophils Absolute Auto 0.2 K/mm3 (0-0.3); Eosinophils Percent Auto 2.3 % (0-4.4); Hematocrit 44.3 % (37.0-47.0); Hemoglobin 14.6 g/dL (12.0-15.0); Immature Granulocyte Absolute 0.02 K/mm3 (0.00-0.031); Immature Granulocyte Percent A 0.3 % (0-0.5); Lymphocytes Absolute Auto 0.66 K/mm3 (0.9-3.2); Lymphocytes Percent Auto 9.4 % (18.3-44.2); Mean Corpuscular Hemoglobin 29.5 pg (26-34); Mean Corpuscular Volume 89.5 fl (80-100); Mean Platelet Volume 10.7 fl (7.4-10.4); Monocytes Absolute Auto 0.7 K/mm3 (0.1-0.6); Monocytes Percent Auto 9.2 % (2.6-8.5); Neutrophils Absolute Auto 5.5 K/mm3 (1.3-6.7); Neutrophils Percent Auto 78.2 % (45.5-73.1); Platelet Count Result 172 k/mm3 (150-375); Red Blood Count 4.95 M/mm3 (4.2-5.4); Red Cell Distribution Width 12.4 % (11.5-14.5); White Blood Count 7.1 K/mm3 (4.5-10.0)
[2023-11-16 16:52] LABS: Alanine Aminotransferase 17 U/L (6-35); Albumin Level 4.2 g/dL (3.5-5.1); Alkaline Phosphatase 102 U/L (38-126); Anion Gap 7 mmol/L (4-12); Aspartate Amino Transferase 25 U/L (14-36); Bilirubin,Total 0.5 mg/dL (0.2-1.3); Blood Urea Nitrogen 19 mg/dL (7-17); Calcium 9.7 mg/dL (8.4-10.2); Carbon Dioxide 30 mmol/L (22-30); Chloride 102 mmol/L (98-107); Estimated Glomerular Filt Rate > 60; Glucose 100 mg/dL (65-110); Lactate Dehydrogenase 187 U/L (120-246); Potassium 4.2 mmol/L (3.4-5.0); Sodium 139 mmol/L (137-145)
== END 2023-11-16 12:52 | disposition home or self-care (01) ==
LOC: ANHLAB 12:54
PROVIDERS: PCP Family Medicine; Visit Provider Internal Medicine Hematology & Oncology
DX: C82.90 Follicular lymphoma, unspecified, unspecified site (principal)
CPT/HCPCS: 36415; 80053; 83615; 85025

== ENCOUNTER 2023-11-24 09:54 | Outpatient (CLI) | payer MEDICARE, OTHER, SELFPAY ==
[2023-11-22 10:32] VITALS: BMI 24.3
--- NOTE | 2023-11-22 10:33 | PC.NURSE ---
Pre Radiology instructions Report to the IMAGING CENTER on date 11/24/23 at time __10 AM for procedure Time:10:30 AM ____ YOU MAY BE MONITORED AT HOSPITAL FOR UP TO 4 HOURS AFTER YOUR PROCEDURE. A visitor will be allowed to accompany the patient into the hospital. You and your visitor will be asked to self-screen and do not enter if you have any COVID symptoms. A mask is OPTIONAL within the hospital. Patients are to have no food or drink 6 hours prior to procedure time Driving will be restricted after the procedure, you must have a person to drive you home. Labs will be drawn in preop area and once reviewed, you will be taken to radiology area for procedure. When the procedure is completed, you will be taken to outpatient where you will be monitored for several hours. You may have one visitor in this area. Other than holding anti-coagulants, patient may take other medication(s) as scheduled. Prior to your appointment date patients are instructed to hold anti-coagulants after discussing with ordering provider to stop. If unable to discontinue anti-coagulants please notify radiologist. ? No aspirin or warfarin (Coumadin) for 7 days prior to the procedure. ? No clopidogrel (Plavix), ticagrelor (Brilinta), prasugrel (Effient) or dabigatran (Pradaxa) for 5 days prior to the procedure. ? No rivaroxaban (Xarelto), apixaban (Eliquis), dipyridamole (Aggrenox or Persantine) or cilostazol (Pletal) for 2 days prior to the procedure. Medications to discontinue per physician: _NONE Date to take last dose: Please leave all valuables, including medications, at home the day of procedure. The hospital will not accept responsibility for valuables. Wear comfortable, loose fitting clothing.? Follow any additional instructions given to you from ordering provider. Telephone instructions given to ___PATIENT and asked if any additional questions and then verbalized understanding. Patient advised to call scheduling provider office or registration scheduling [phone] if any additional questions.
--- NOTE | ~2023-11-24 | US_ITS ---
EXAMINATION: US thoracentesis DATE: 11/24/2023 11:24 INDICATION: pleural effusion TECHNIQUE: The procedure and its risks, benefits, and alternatives were discussed with the patient. P otential risks discussed included bleeding, infection, and pneumothorax. The patient understood the r isks and agreed to proceed. The skin was prepped and draped in sterile fashion. 1% lidocaine was used for local anesthesia. Under ultrasound guidance, a 5 Fr catheter with trochar was advanced into the right pleural effusion. Fluid was aspirated. The catheter was removed, and a dressing was applied. Th ere were no immediate complications. FINDINGS: Ultrasound images demonstrate a right pleural effusion and the catheter within the fluid. IMPRESSION: 1. Successful ultrasound-guided thoracentesis yielding 975 mL of dark yellow fluid. Reviewed, dictated and finalized at location A. IMPRESSION: 1. Successful ultrasound-guided thoracentesis yielding 975 mL of dark yellow f luid.
--- NOTE | ~2023-11-24 | XR_ITS ---
EXAMINATION: [id number] DATE: 11/24/2023 11:10 INDICATION: Right pleural effusion status post thoracentesis. TECHNIQUE: A single frontal view of the chest was obtained. COMPARISON: Chest single view 11/16/2023 FINDINGS: There is a small right pleural effusion with nodular pleural thickening. There are airspace opacities at right lung base, likely atelectasis. No pneumothorax. The heart size is normal. Surgica l clips in the right upper quadrant are likely from cholecystectomy. IMPRESSION: 1. Small right pleural effusion with nodular pleural thickening, consistent with lymphoma. Reviewed, dictated and finalized at location A. IMPRESSION: 1. Small right pleural effusion with nodular pleural thickening, consistent wit h lymphoma.
[2023-11-24 11:10] VITALS: BP 103/92; PULSE 108; RESP 16; O2SAT 97
[2023-11-24 11:25] VITALS: BP 126/67; PULSE 48; RESP 16; O2SAT 97
[2023-11-24 11:40] VITALS: BP 135/66; PULSE 54; RESP 16; O2SAT 96
[2023-11-24 12:55] VITALS: BP 139/66; PULSE 52; RESP 16; O2SAT 95
== END 2023-11-24 13:00 | disposition home or self-care (01) ==
PROVIDERS: PCP Family Medicine; Referring Provider Radiology Diagnostic Radiology; Visit Provider Internal Medicine Hematology & Oncology
DX: J90 Pleural effusion, not elsewhere classified (principal)
CPT/HCPCS: 32555

== ENCOUNTER 2023-11-25 10:16 | Outpatient (CLI) | payer MEDICARE, OTHER, SELFPAY ==
--- NOTE | ~2023-11-25 | PE_ITS ---
EXAMINATION: PET skull to mid thigh DATE: 11/25/2023 12:39 INDICATION: Follicular lymphoma TECHNIQUE: Blood glucose level was 90 mg/dL. 10.282 mCi of 18-fluorodeoxyglucose (18-FDG) was adminis tered i.v. Low dose computed tomography (CT) images were acquired from the base of the brain to the p roximal thighs for attenuation correction and anatomic localization. Positron emission tomography (PE T) images were acquired in the same distribution beginning 57 minutes after injection. Images includi ng fused PET/CT images were reconstructed in axial, coronal, and sagittal planes. Automated exposure control technique was employed. The dose-length product was 941.00mGy-cm. COMPARISON: None FINDINGS: Head/neck: There is symmetric increased activity in the oral and nasal cavities, laryngeal muscles and ocular mu scles without CT correlate, likely physiologic. FDG avid 1.4 x 0.7 cm left submandibular lymph node w ith maximal SUV of 17. There are multiple additional normal-sized but similarly FDG avid bilateral diego praclavicular lymph nodes. Heterogeneous 1.3 similar left thyroid nodule without increased FDG activi ty. Chest: Moderate sized posterior layering right pleural effusion with compressive atelectasis in the dependen t right upper and lower lobes. No suspicious pulmonary nodules, pneumonia or pulmonary edema in the a erated portions of the lungs. No left-sided pleural effusion. FDG avid nodular pleural thickening at the periphery of the right lung. No abnormal FDG uptake in the atelectatic portion of the right lung. Heart size is normal. Atherosclerotic coronary artery calcification is. No pericardial effusion. Tho racic aorta is normal in caliber. There are a few normal-sized but FDG avid mediastinal lymph nodes i ncluding the prevascular, AP window, subcarinal and right paratracheal regions. There is a larger 2.6 x 1.8 cm left paratracheal lymph node situated between the left common carotid and left subclavian a rteries with maximal SUV of 21.2 Abdomen/pelvis/proximal thighs: Physiologic renal accumulation and excretion of FDG activity in the kidneys, bladder and along portio ns of ureters. Cholecystectomy clips the gallbladder fossa. Normal degree and heterogenous pattern of increased uptake throughout the liver without radiologic correlate or dominant FDG avid lesion. The gallbladder, pancreas, spleen and bilateral adrenal glands are normal. Mild uptake scattered througho ut the bowels without radiologic correlate, also likely physiologic. Retroperitoneal enlarged and FDG avid left and right paracolic lymph nodes in the abdomen, the largest left perinephric lymph node ju st below level of the renal vasculature measures 2.9 x 2.4 cm with maximal SUV of 19.6. The enlarged FDG avid lymph nodes continue caudally along the left common and external iliac chains to the left in guinal region where the largest lymph node measures 3.3 x 2.8 cm with maximal SUV of 24.4. There are few smaller but similarly FDG avid right inguinal lymph nodes. Musculoskeletal: Right total hip arthroplasty. No suspicious lytic, blastic or abnormally FDG avid bone lesions. IMPRESSION: 1. Multiple FDG avid likely malignant pleural-based nodules at the periphery of the right lung with l ikely malignant moderate-sized right pleural effusion which could be due to metastatic disease or lym phoma. 2. Multiple FDG avid lymph nodes extending from the left submandibular region through the neck, media stinum and retroperitoneum to the bilateral inguinal regions also consistent with either metastatic d isease or more likely lymphoma. Recommend ultrasound guided core needle biopsy of one of the left ing uinal lymph nodes. Reviewed, dictated and finalized at location B.
[2023-11-25 11:01] LABS: Glucose Point of Care 90 mg/dl (65-105)
== END 2023-11-25 10:17 | disposition home or self-care (01) ==
LOC: ANHIMG 10:22
PROVIDERS: PCP Family Medicine; Visit Provider Internal Medicine Hematology & Oncology
DX: C82.01 Follicular lymphoma grade I, lymph nodes of head, face, and neck (principal)
CPT/HCPCS: 78815; A9552

== ENCOUNTER 2023-12-13 08:52 | Outpatient (CLI) | payer MEDICARE, OTHER, SELFPAY ==
--- NOTE | ~2023-12-13 | US_ITS ---
EXAMINATION: US biopsy lymph node DATE: 12/13/2023 10:21 INDICATION: Follicular lymphoma. TECHNIQUE: The procedure including the risks, benefits, and alternatives was discussed with the patie nt. Risks discussed included bleeding and infection. The patient understood the risks and agreed to p roceed. The skin overlying the left inguinal region was prepped and draped in usual sterile fashion. Anesthetic was administered with 1% lidocaine subcutaneously. An 18 gauge core biopsy needle was th en used to obtain 6 core biopsy specimens under continuous sonographic guidance. The entry site was c leaned and dressed. There were no immediate complications. FINDINGS: Ultrasound images demonstrate the needle in a 3.1 x 2.2 cm left inguinal lymph node. IMPRESSION: 1. Ultrasound-guided core needle biopsy of an enlarged left inguinal lymph node. Reviewed, dictated and finalized at location A. IMPRESSION: 1. Ultrasound-guided core needle biopsy of an enlarged left inguinal lymph node .
== END 2023-12-13 08:53 | disposition home or self-care (01) ==
LOC: ANHIMG 08:55
PROVIDERS: PCP Family Medicine; Visit Provider Internal Medicine Hematology & Oncology
DX: C82.90 Follicular lymphoma, unspecified, unspecified site (principal)
CPT/HCPCS: 38505; 76942; 88184; 88305

== ENCOUNTER 2024-01-03 00:56 | Day surgery (SDC) | payer MEDICARE, OTHER, SELFPAY ==
--- NOTE | 2023-12-27 12:51 | PC.NURSE ---
Report to the Outpatient Waiting Room, entrance under the green pavilion located off [facility], at time 12 NOON on date 01/03/24 . Planned Procedure Time: __2 PM .? Time changes happen often and if your time is changed the preop area will call you the afternoon before. - You and your visitor will be asked to self-screen and do not enter if you have any COVID symptoms. Please call surgeon if you need to reschedule. - A mask is optional within the hospital at this time. Patients may have clear liquids (water, carbonated beverages, clear teas, apple juice) until 3 hours prior to surgery with a maximum of 20 ounces. - No food from midnight until time of surgery and no smoking - Infants may have breast milk until 4 hours before surgery, infant formula 6 hours prior to surgery. - Children will be allowed to drink immediately following surgery.? If applicable, please bring a bottle or sippy cup to assist with drinking. Juice, water, soda, and popsicles are readily available.? For infants on formula, please bring formula the day of surgery.? Pacifiers are allowed. Take only the following medications with a SIP of water on the morning of surgery: __AMLODIPINE DO NOT STOP ANY OF YOUR OTHER PRESCRIPTION MEDICATIONS PRIOR TO SURGERY EXCEPT THE FOLLOWING Medications to discontinue per physician ___HOLD ALL VITAMINS AND SUPPLEMENTS 3 DAYS PRE OP Date to take last dose__12/30/23 Please no make-up, nail cuban, hairspray, perfume, deodorant, or body powder the day of surgery.? No jewelry (including any body piercings) or valuables the day of surgery, leave them at home.? Please take a shower or bath the night before, or the morning of, surgery with an antibacterial soap.? Wear comfortable, loose fitting clothing.? Children are encouraged to wear pajamas. - Jewelry must be removed prior to entering the operating room.? Rings and piercings that are not removed may be cut off. - The hospital will not accept responsibility for valuables.? - Please leave all valuables, including medications, at home the day of surgery. If you are going home after surgery, a licensed driver courier must drive you home.? - NO public transportation without another adult if you receive anesthesia. - We recommend that an adult stay with you for 24 hours following discharge. - We also recommend that you do not drive, make important decision, drink alcoholic beverages, or take any drugs that were not prescribed by your health care provider for at least 24 hours after your discharge time. For Pediatric surgeries, we recommend two adults accompany the child home. Follow any additional instructions given to you from your surgeon. Telephone instructions given to ___PATIENT and asked if any additional questions and then verbalized understanding. Patient advised to call surgeon office or pre surgery nurse liaison [phone] if any additional questions.
[2023-12-27 12:58] VITALS: BMI 24.3
--- NOTE | ~2024-01-03 | XR_ITS ---
EXAMINATION: XR fl guide central line place DATE: 01/03/2024 13:19 INDICATION: Port catheter insertion TECHNIQUE: Single fluoroscopic image of the inferior central chest was obtained during procedure perf ormed by Dr. Hooper. Radiologist was not present for the imaging or procedure. The amount of fluoroscop y time used during this procedure was 0.7 minutes. COMPARISON: None. FINDINGS: The tip of a central venous catheter extends caudally along the superior vena cava with distal tip ne ar the superior cavoatrial junction. IMPRESSION: 1. Fluoroscopy utilized during reported central venous port catheter placement with distal tip near t he superior cavoatrial junction. See procedure note for further detail. Reviewed, dictated and finalized at location A. IMPRESSION: 1. Fluoroscopy utilized during reported central venous port catheter placement with distal tip near the superior cavoatrial junction. See procedure note for f urther detail.
--- NOTE | ~2024-01-03 | XR_ITS ---
XR chest port-a-cath/central Ordering provider: Maury Hooper MD History: 68 years Female with . POST-OP, INSERTION AGUSTÍN CATH . Comparison: None. FINDINGS: MEDIASTINUM: The cardiac silhouette is not enlarged. Right Port-A-Cath with the tip overlying superio r vena cava. LUNGS: No effusions or pneumothorax. Opacification in the right lower lobe area suggestive of pneumon ia versus atelectasis. OTHER: No free air under the diaphragm. IMPRESSION: Right lower lobe pneumonia. Reviewed, dictated and finalized at location A. IMPRESSION: Right lower lobe pneumonia.
[2024-01-03 10:09] VITALS: BP 131/70; PULSE 57; RESP 18; TEMP 36.1; O2SAT 98
[2024-01-03] MEDS: LACTATED RINGERS 1,000 ML 30 ML IV CONT (10:20)
[2024-01-03 10:43] LABS: Partial Thromboplastin Time 25.5 Seconds (22.3-36.8)
--- NOTE | 2024-01-03 11:02 | WPDANESEPPF ---
Anes - Initial Pre Proc Eval Procedure: Operation Date: 01/03/24 12:00 Proposed Procedures p Insertion Karel Cath - Maury Hooper MD Date/Time: 01/03/24 11:02 Surgeon: Maury Hooper MD Pre Op Diagnosis: follicular lymphoma Patient Data Age: 68 Gender: F Height: 1.75 m Weight: 78.4 kg Last Vital Signs Temp 97.0 F L 01/03/24 10:09 Pulse 57 L 01/03/24 10:09 Resp 18 01/03/24 10:09 BP 131/70 01/03/24 10:09 Pulse Ox 98 01/03/24 10:09 O2 Del Method Room Air 01/03/24 10:09 Allergies Allergy/AdvReac Type Severity Reaction Status Date / Time cefaclor Allergy Mild Rash Verified 12/27/23 12:44 Cephalosporins Allergy Mild Rash Verified 12/27/23 12:44 Home Medications Medication Instructions Recorded Confirmed Type multivitamin (Daily Multi-Vitamin 1 tablet PO DAILY 08/16/19 01/03/24 History tablet) omega 2-gai-abb-fish oil 1,000 mg 2 cap PO DAILY 08/16/19 01/03/24 History (120 mg-180 mg) capsule (Fish Oil) glucosamine sulfate 1,000 mg 1,000 mg PO DAILY 12/12/19 01/03/24 History capsule amlodipine 10 mg tablet 10 mg PO DAILY #90 tabs 08/12/23 01/03/24 Rx dicyclomine 20 mg tablet 20 mg PO .BID #60 tabs 09/22/23 01/03/24 Rx benazepril 10 mg tablet (Lotensin) 10 mg PO DAILY #90 tabs 11/10/23 01/03/24 Rx calcium polycarbophil 625 mg 1,250 mg PO BID 12/27/23 01/03/24 History tablet (FiberCon) Laboratory Tests 01/03/24 10:16 APTT 25.5 Seconds (22.3-36.8) Patient hx anesthesia problems: none Family hx anesthesia problems: none Results Review: All pre-operative results and documents have been reviewed as part of the pre-operative evaluation. [facility] Past Medical History Medical History Arthritis Bunionette of right foot Callus of foot Cavovarus deformity of foot, acquired Chronic rhinitis Encounter for postoperative care Hypertension Lymphoma Painful orthopaedic hardware Plantar fasciitis, bilateral Seasonal allergies Surgical History Surgical History History of colon surgery History of surgery Port-A-Cath placement, 2005 Status post abdominal hysterectomy Status post cholecystectomy Status post right hip replacement Family History Family History Mother Family history of cardiac disorder Father Family history of diabetes mellitus in first degree relative Family history of heart disease in male family member before age 55 Other Heart disease History of malignant neoplasm Hypertension Social History Social History Smoking packs per day: 1 Smoking cigarettes per day: 20.0 Years smoked: 15 Smoking pack-years: 15.00 Smoking status: Former smoker Tobacco type: cigarettes Smoking end date: 03/15/98 Alcohol intake: never Alcohol use details: rarely Substance use: never Substance use type: does not use Lack of Transportation: No Lack of Food: Never True Current Housing: I Have Housing Concerned About Future Housing: No Difficulty Paying Gas/Electric Bills: No Difficulty Paying for Meds: No Currently Unemployed: No Education: High School Diploma/GED Difficulty w/ Childcare or Family Care: No Living arrangements: with family Additional living arrangements comments: [facility] Occupation/Education: retired Gender identity (if verbalized by the patient): Female Spiritual care concerns: No Anes - Eval Final PreProcedure Day of Procedure 01/03/24 11:02 Patient weight: normal Heart: regular rate and rhythm Lungs: clear to auscultation Airway: Mallampati scale class II Neurological: alert and oriented Last oral intake: >/= 8 hours ASA classification: III Emergent: no Anesthetic plan: proceed Anesthesia type and monitoring: general GIVS and standard monitoring Results Review: All pre-operative results and documents have been reviewed as part of the pre-operative evaluation. 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 Pt had thoracentesis 12/31/23 w apparently 1 L fluid removed and does feel improved. Notes only sob w climbing stairs. Now for portacath placement for chemo treatment. Informed Consent: The patient's anesthetic plan and its attendant risks and benefits were discussed with the patient/family/POA. Questions were solicited and answers provided to the satisfaction of the patient/family/POA.
--- NOTE | 2024-01-03 12:06 | PM.IMHP ---
H&P: HPI History of Present Illness Date/Time: 01/03/24 12:06 Chief Complaint: Lymphoma, needs port placement for chemo tx. Narrative: Patient is a 68-year-old female who has recurrent lymphoma and had a left groin lymph node core needle biopsy done in Radiology recently. She was treated for lymphoma 2005 and at that time I have placed a indio catheter in the right subclavian vein and it was removed after she went into remission. Unfortunate she has had a recurrence of the lymphoma and presents now for placement of another indio catheter in preparation for chemotherapy treatments again. Review of Systems Review of Systems: The remainder of the review of systems to include constitutional, HEENT, cardiovascular, respiratory, GI, , integumentary, musculoskeletal, endocrine, immunologic, hematologic, psychiatric, and neurologic are all negative except for which is mentioned above in the HPI. [facility] Past Medical History Medical History Arthritis Bunionette of right foot Callus of foot Cavovarus deformity of foot, acquired Chronic rhinitis Encounter for postoperative care Hypertension Lymphoma Painful orthopaedic hardware Plantar fasciitis, bilateral Seasonal allergies Surgical History Surgical History History of colon surgery History of surgery Port-A-Cath placement, 2005 Status post abdominal hysterectomy Status post cholecystectomy Status post right hip replacement Family History Family History Mother Family history of cardiac disorder Father Family history of diabetes mellitus in first degree relative Family history of heart disease in male family member before age 55 Other Heart disease History of malignant neoplasm Hypertension Social History Social History Smoking packs per day: 1 Smoking cigarettes per day: 20.0 Years smoked: 15 Smoking pack-years: 15.00 Smoking status: Former smoker Tobacco type: cigarettes Smoking end date: 03/15/98 Alcohol intake: never Alcohol use details: rarely Substance use: never Substance use type: does not use Lack of Transportation: No Lack of Food: Never True Current Housing: I Have Housing Concerned About Future Housing: No Difficulty Paying Gas/Electric Bills: No Difficulty Paying for Meds: No Currently Unemployed: No Education: High School Diploma/GED Difficulty w/ Childcare or Family Care: No Living arrangements: with family Additional living arrangements comments: [place] Occupation/Education: retired Gender identity (if verbalized by the patient): Female Spiritual care concerns: No Meds Home Medications and Allergies Home Medications Medication Instructions Recorded Confirmed Type multivitamin (Daily Multi-Vitamin 1 tablet PO DAILY 08/16/19 01/03/24 History tablet) omega 7-kmc-xdh-fish oil 1,000 mg 2 cap PO DAILY 08/16/19 01/03/24 History (120 mg-180 mg) capsule (Fish Oil) glucosamine sulfate 1,000 mg 1,000 mg PO DAILY 12/12/19 01/03/24 History capsule amlodipine 10 mg tablet 10 mg PO DAILY #90 tabs 08/12/23 01/03/24 Rx dicyclomine 20 mg tablet 20 mg PO .BID #60 tabs 09/22/23 01/03/24 Rx benazepril 10 mg tablet (Lotensin) 10 mg PO DAILY #90 tabs 11/10/23 01/03/24 Rx calcium polycarbophil 625 mg 1,250 mg PO BID 12/27/23 01/03/24 History tablet (FiberCon) Allergies Allergy/AdvReac Type Severity Reaction Status Date / Time cefaclor Allergy Mild Rash Verified 12/27/23 12:44 Cephalosporins Allergy Mild Rash Verified 12/27/23 12:44 Vital Signs Vital Signs - 24 hr 01/03/24 10:09 Temperature 36.1 C L Pulse Rate 57 L Respiratory Rate 18 Blood Pressure 131/70 Pulse Oximetry 98 Oxygen Delivery Room Air Exam Const: General: comfortable and no acute distress HENMT: Ears: TM's normal bilaterally Face/Nose/Sinus: Normal nares present Mouth: Yes moist mucous membranes Eyes: General: appearance normal, both eyes and all related structures Sclera: sclerae normal Pupils: Equal, round and reactive pupils present EOM: EOMs intact bilaterally Neck: Neck: supple and no JVD Chest: Other: Well-healed right upper anterior chest wall scar prior port placement. Port is no longer in place. Resp: Effort & Inspection: normal respiratory effort Auscultation: clear to auscultation bilaterally Cardio: Rate: regular rate Rhythm: regular rhythm GI: GI Palp: Yes Soft to palpation, No Firmness to palpation present (GI), No Tenderness to palpation present (GI), No Guarding due to palpation present (GI) and No Hernia present Skin: General skin exam: normal color and no rashes or lesions noted Neuro: General: gait normal Speech: normal speech Motor exam (neuro): 5/5 motor strength present throughout Extrem: General: normal to inspection Psych: Mental Status: mental status grossly normal Affect: normal affect Assessment and Plan Assessment and plan (1) Follicular lymphoma grade 3a: Code(s): C82.30 - Follicular lymphoma grade IIIa, unspecified site Status: Acute Assessment and Plan: Patient has recurrent follicular cell lymphoma. She presents for placement of another indio catheter. Prior indio catheter which was removed many years ago was in the right subclavian vein. Will try to place the indio catheter again in the right upper anterior chest wall via the right internal jugular vein or right subclavian vein. Risks, benefits, indications, and expected outcomes were discussed. Risks such as iatrogenic pneumothorax and need for chest tube placement and bleeding with need for blood transfusion was discussed and she wishes to proceed.
--- NOTE | 2024-01-03 12:11 | WPDHPUPDATE1 ---
History and Physical Update Update Date/Time: 01/03/24 12:11 History and Physical has been reviewed, including an updated exam of the patient. There are NO changes in the patient's condition. Risks, benefits, and alternatives have been discussed and questions answered. Patient agrees to proceed with procedure.
[2024-01-03] MEDS: ceFAZolin 2 GM/D5W 50 ML 2 GM/50 ML BAG IVPB (12:31)
[2024-01-03] MEDS: HEPARIN SODIUM 1,000 UNITS/ML VIAL 1000 UNITS IV PUSH (12:54)
[2024-01-03] MEDS: HEPARIN SODIUM 5,000 UNITS/ML VIAL 5000 UNITS IRRIGATION (12:55)
[2024-01-03] MEDS: LIDO 1%/EPINEPHRINE 1:100,000 50 ML VIAL 15 ML INFILTRATE (13:15)
[2024-01-03 13:28] VITALS: BP 109/51; PULSE 71; RESP 16; O2SAT 100
--- NOTE | 2024-01-03 13:33 | W.PM.PROC2 ---
Procedure Note - Detailed Date of Procedure 01/03/24 Pre-op Diagnosis Follicular cell lymphoma Post-op Diagnosis Same Procedure Performed Placement of right internal jugular vein single-lumen port a catheter with intraoperative fluoroscopy Surgeon Maury Hooper MD Anesthesia MAC and Local Indications Patient is a 68-year-old female who had a prior history of lymphoma. She was treated chemotherapy and had a prior indio catheter which was eventually removed after she went into remission. Unfortunate she has had recurrence of her lymphoma and presents now for placement of another indio catheter for chemotherapy treatments. Findings None significant Description of Procedure After informed consent was obtained patient brought to the operating room she was placed supine position and then IV sedation was administered by anesthesia. The bilateral upper anterior neck and chest was then prepped and draped usual sterile fashion. Time-out was then performed correctly identifying the patient as well as procedure to be performed verifying that she was given perioperative IV antibiotics. The patient was then placed head down to another physician. I then used 1% lidocaine mix was 0.5% Marcaine and injected between the 2 heads of the right sternocleidomastoid muscle. Then I used a long 18gauge needle to cannulate the right internal jugular vein between the 2 heads of the right sternocleidomastoid muscle on 1st pass any difficulty. There was prompt return of dark venous appearing blood. A guidewire was advanced through the right internal jugular vein subsequent down into the superior vena cava. Intraoperative fluoroscopy was used to verify the proper placement the tip of the guidewire. I then proceeded to anesthetize the area the old scar and the previous old port site in the right upper anterior chest region. This is done with the same local anesthetic mixture. I then made a transverse incision through the old scar utilizing a scalpel and then dissected down through the subcu tissue electrocautery. A subcutaneous port pocket was then created utilizing electrocautery blunt finger dissection. I then anesthetized tract between the incision and the right anterior lateral neck incision. The 9.6 Malian single-lumen catheter was then tunneled between the 2 incisions. I then advanced a dilator breakaway sheath over the guidewire and the guidewire and dilator were removed leaving the sheath in place. I then advanced the 9.6 Malian single-lumen catheter through the sheath into the right internal jugular vein subsequent down into the distal superior vena cava. The sheath was then torn away leaving the catheter in place. Intraoperative fluoroscopy was then used to visualize the tip of the catheter and it was pulled external to the anterior chest wall until the tip of the catheter was in the distal superior vena cava on fluoroscopy.. At this point I then cut the catheter to the appropriate length at the skin level and attached to the titanium Smart Port. The titanium Smart was then secured the subcutaneous port pocket on 3 sides with a 3-0 Prolene suture. I then accessed the port and aspirated blood easily and then it was flushed with heparinized saline solution. The port pocket was then irrigated sterile saline solution and then I closed the port pocket utilizing interrupted 3-0 Vicryl sutures in the subcutaneous tissues. The skin edges on the chest incision and the right anterior lateral neck incision was then closed utilizing is a 4-0 Monocryl suture placed in subcuticular fashion. The incisions were then cleaned the skin glue was applied. Lastly I accessed the port percutaneously and again aspirated blood easily and was flushed with 5000units of IV heparin. The patient tolerated the procedure well no complications. All sponges, needles, and instrument counts were correct at the end procedure. EBL was _10__cc. The patient was awakened and taken to recovery in stable and satisfactory condition. Implants 9.6 Malian single-lumen silastic catheter attached to Smart Port placed via right internal jugular vein. Estimated Blood Loss 10 Drains No Packing No Pathology None sent Complications No immediate complications Condition Stable Disposition PACU [facility] Billing Surgery - Charge Forward: Surgery Billing
[2024-01-03 13:55] VITALS: BP 124/59; PULSE 63
--- NOTE | 2024-01-03 14:04 | SUR.PHASEII ---
Dr. Hooper aware of pneumonia. He said since patient is asymptomatic at this time to follow-up with primary if any problems arise.
[2024-01-03 14:25] VITALS: BP 133/64; PULSE 57
== END 2024-01-03 14:33 | disposition home or self-care (01) ==
PROVIDERS: PCP Family Medicine; Visit Provider Surgery
PROC: (CPT 36561; principal; 2024-01-03 12:00)
DX: C82.35 Follicular lymphoma grade IIIa, lymph nodes of inguinal region and lower limb (principal); J18.9 Pneumonia, unspecified organism; I10 Essential (primary) hypertension; J31.0 Chronic rhinitis; Z98.890 Other specified postprocedural states; Z90.49 Acquired absence of other specified parts of digestive tract; Z87.891 Personal history of nicotine dependence; Z92.21 Personal history of antineoplastic chemotherapy; Z80.9 Family history of malignant neoplasm, unspecified; Z82.49 Family history of ischemic heart disease and other diseases of the circulatory system
CPT/HCPCS: 36561; 36415; 77001; 85730; C1788; J0690; J1100; J1644; J2003; J2004; J2250; J2371; J2405; J2704; J7120

== ENCOUNTER 2024-01-20 09:52 | Outpatient (RCR) | payer MEDICARE, OTHER, SELFPAY ==
[2023-11-25 15:07] VITALS: BMI 24.4
--- NOTE | 2023-11-25 15:10 | PC.NURSE ---
Addendum entered by Jen Duncan RN 11/26/23 13:31: Pt aware of date and time change. Will arrive to imaging entrance at 0900 on 12/01. Original Note: Pre Radiology instructions Report at [facility] on date _[id number]_ at time _1000_ for procedure Time: 1030_ YOU MAY BE MONITORED AT HOSPITAL FOR UP TO 4 HOURS AFTER YOUR PROCEDURE. A visitor will be allowed to accompany the patient into the hospital. You and your visitor will be asked to self-screen and do not enter if you have any COVID symptoms. A mask is OPTIONAL within the hospital. Patients are to have no food or drink 6 hours prior to procedure time Driving will be restricted after the procedure, you must have a person to drive you home. Labs will be drawn in preop area and once reviewed, you will be taken to radiology area for procedure. When the procedure is completed, you will be taken to outpatient where you will be monitored for several hours. You may have one visitor in this area. Other than holding anti-coagulants, patient may take other medication(s) as scheduled. Prior to your appointment date patients are instructed to hold anti-coagulants after discussing with ordering provider to stop. If unable to discontinue anti-coagulants please notify radiologist. ? No aspirin or warfarin (Coumadin) for 7 days prior to the procedure. ? No clopidogrel (Plavix), ticagrelor (Brilinta), prasugrel (Effient) or dabigatran (Pradaxa) for 5 days prior to the procedure. ? No rivaroxaban (Xarelto), apixaban (Eliquis), dipyridamole (Aggrenox or Persantine) or cilostazol (Pletal) for 2 days prior to the procedure. Medications to discontinue per physician: Date to take last dose: Please leave all valuables, including medications, at home the day of procedure. The hospital will not accept responsibility for valuables. Wear comfortable, loose fitting clothing.? Follow any additional instructions given to you from ordering provider. Telephone instructions given to _Dianne_and asked if any additional questions and then verbalized understanding. Patient advised to call scheduling provider office or registration scheduling [phone] if any additional questions.
[2023-12-02] VITALS (7 sets, daily range): BP systolic 114–124; BP diastolic 57–73; PULSE 50–57; RESP 14–16; O2SAT 97–100
--- NOTE | 2023-12-02 11:06 | SUR.PHASEII ---
Radiology contacted to inquire about post op xrays needed- no further xrays needed for pt to discharge home per MD.
--- NOTE | 2023-12-02 12:13 | SUR.PHASEII ---
Pt was NPO for 2hrs following procedure per MD order.
[2023-12-08 11:03] VITALS: BMI 23.8
--- NOTE | 2023-12-08 11:04 | PC.NURSE ---
Addendum entered by Negrita Frye RN 12/08/23 11:05: PATIENT INSTRUCTED TO ENTER THROUGH IMAGING CENTER ENTRANCE AT FRONT OF HOSPITAL, SHE RELAYS UNDERSTANDING. Original Note: Pre Radiology instructions Report to the outpatient [facility] on date ___12/09/23__ at time ____9:00AM___ for procedure Time: __9:30AM__ YOU MAY BE MONITORED AT HOSPITAL FOR UP TO 4 HOURS AFTER YOUR PROCEDURE. A visitor will be allowed to accompany the patient into the hospital. You and your visitor will be asked to self-screen and do not enter if you have any COVID symptoms. A mask is OPTIONAL within the hospital. Patients are to have no food or drink 6 hours prior to procedure time Driving will be restricted after the procedure, you must have a person to drive you home. Labs will be drawn in preop area and once reviewed, you will be taken to radiology area for procedure. When the procedure is completed, you will be taken to outpatient where you will be monitored for several hours. You may have one visitor in this area. Other than holding anti-coagulants, patient may take other medication(s) as scheduled. Prior to your appointment date patients are instructed to hold anti-coagulants after discussing with ordering provider to stop. If unable to discontinue anti-coagulants please notify radiologist. ? No aspirin or warfarin (Coumadin) for 7 days prior to the procedure. ? No clopidogrel (Plavix), ticagrelor (Brilinta), prasugrel (Effient) or dabigatran (Pradaxa) for 5 days prior to the procedure. ? No rivaroxaban (Xarelto), apixaban (Eliquis), dipyridamole (Aggrenox or Persantine) or cilostazol (Pletal) for 2 days prior to the procedure. Medications to discontinue per physician: ___NONE Date to take last dose: Please leave all valuables, including medications, at home the day of procedure. The hospital will not accept responsibility for valuables. Wear comfortable, loose fitting clothing.? Follow any additional instructions given to you from ordering provider. Telephone instructions given to PATIENT and asked if any additional questions and then verbalized understanding. Patient advised to call scheduling provider office or registration scheduling [phone] if any additional questions.
[2023-12-09 09:45] VITALS: BP 122/59; PULSE 53; RESP 14; O2SAT 99
[2023-12-09 10:00] VITALS: BP 114/61; PULSE 55; RESP 16
[2023-12-09 10:15] VITALS: BP 103/62; PULSE 52; RESP 16
[2023-12-09 10:30] VITALS: BP 116/65; PULSE 53; RESP 16; O2SAT 94
[2023-12-09 11:00] VITALS: BP 111/61; PULSE 54; RESP 16
[2023-12-09 11:30] VITALS: BP 120/65; PULSE 51; RESP 14; O2SAT 98
[2023-12-14 11:46] VITALS: BMI 24.4
--- NOTE | 2023-12-14 11:46 | PC.NURSE ---
Pre Radiology instructions Report to the IMAGING CENTER ENTRANCE on date __12/15/23___ at time ___10:00AM____ for procedure Time: _10:30AM___ YOU MAY BE MONITORED AT HOSPITAL FOR UP TO 4 HOURS AFTER YOUR PROCEDURE. A visitor will be allowed to accompany the patient into the hospital. You and your visitor will be asked to self-screen and do not enter if you have any COVID symptoms. A mask is OPTIONAL within the hospital. Patients are to have no food or drink 6 hours prior to procedure time Driving will be restricted after the procedure, you must have a person to drive you home. Labs will be drawn in preop area and once reviewed, you will be taken to radiology area for procedure. When the procedure is completed, you will be taken to outpatient where you will be monitored for several hours. You may have one visitor in this area. Other than holding anti-coagulants, patient may take other medication(s) as scheduled. Prior to your appointment date patients are instructed to hold anti-coagulants after discussing with ordering provider to stop. If unable to discontinue anti-coagulants please notify radiologist. ? No aspirin or warfarin (Coumadin) for 7 days prior to the procedure. ? No clopidogrel (Plavix), ticagrelor (Brilinta), prasugrel (Effient) or dabigatran (Pradaxa) for 5 days prior to the procedure. ? No rivaroxaban (Xarelto), apixaban (Eliquis), dipyridamole (Aggrenox or Persantine) or cilostazol (Pletal) for 2 days prior to the procedure. Medications to discontinue per physician: ___NONE Date to take last dose: Please leave all valuables, including medications, at home the day of procedure. The hospital will not accept responsibility for valuables. Wear comfortable, loose fitting clothing.? Follow any additional instructions given to you from ordering provider. Telephone instructions given to PATIENT and asked if any additional questions and then verbalized understanding. Patient advised to call scheduling provider office or registration scheduling [phone] if any additional questions.
[2023-12-15 10:55] VITALS: BP 131/58; PULSE 48; RESP 14
[2023-12-15 11:23] VITALS: BP 112/68; PULSE 53; RESP 14
[2023-12-15 11:47] VITALS: BP 103/55; PULSE 51; RESP 16
[2023-12-15 12:13] VITALS: BP 111/55; PULSE 51; RESP 16
[2023-12-15 12:35] VITALS: BP 113/61; PULSE 55; RESP 16
[2023-12-16 10:19] LABS: Mean Platelet Volume 10.7 fl (7.4-10.4); Platelet Count Result 156 k/mm3 (150-375)
[2023-12-16 10:33] LABS: Prothrombin Time 13.8 Seconds (11.1-14.7)
--- NOTE | 2023-12-20 09:20 | PC.NURSE ---
Pre Radiology instructions Report to the Radiology dept on date12/23/23 at time 10am for procedure Time: 1030am____ YOU MAY BE MONITORED AT HOSPITAL FOR UP TO 4 HOURS AFTER YOUR PROCEDURE. A visitor will be allowed to accompany the patient into the hospital. You and your visitor will be asked to self-screen and do not enter if you have any COVID symptoms. A mask is OPTIONAL within the hospital. Patients are to have no food or drink 6 hours prior to procedure time Driving will be restricted after the procedure, you must have a person to drive you home. Labs will be drawn in preop area and once reviewed, you will be taken to radiology area for procedure. When the procedure is completed, you will be taken to outpatient where you will be monitored for several hours. You may have one visitor in this area. Other than holding anti-coagulants, patient may take other medication(s) as scheduled. Prior to your appointment date patients are instructed to hold anti-coagulants after discussing with ordering provider to stop. If unable to discontinue anti-coagulants please notify radiologist. ? No aspirin or warfarin (Coumadin) for 7 days prior to the procedure. ? No clopidogrel (Plavix), ticagrelor (Brilinta), prasugrel (Effient) or dabigatran (Pradaxa) for 5 days prior to the procedure. ? No rivaroxaban (Xarelto), apixaban (Eliquis), dipyridamole (Aggrenox or Persantine) or cilostazol (Pletal) for 2 days prior to the procedure. Medications to discontinue per physician: __none Date to take last dose: Please leave all valuables, including medications, at home the day of procedure. The hospital will not accept responsibility for valuables. Wear comfortable, loose fitting clothing.? Follow any additional instructions given to you from ordering provider. Telephone instructions given to __patient and asked if any additional questions and then verbalized understanding. Patient advised to call scheduling provider office or registration scheduling [phone] if any additional questions.
[2023-12-23] VITALS (7 sets, daily range): BP systolic 101–130; BP diastolic 49–63; PULSE 49–54; RESP 16; O2SAT 100
--- NOTE | 2023-12-29 11:28 | PC.NURSE ---
Pre Radiology instructions Report to the radiology on date _12/30/23____ at time _10 am for procedure Time: 10:30 am____ YOU MAY BE MONITORED AT HOSPITAL FOR UP TO 4 HOURS AFTER YOUR PROCEDURE. A visitor will be allowed to accompany the patient into the hospital. You and your visitor will be asked to self-screen and do not enter if you have any COVID symptoms. A mask is OPTIONAL within the hospital. Patients are to have no food or drink 6 hours prior to procedure time Driving will be restricted after the procedure, you must have a person to drive you home. Labs will be drawn in preop area and once reviewed, you will be taken to radiology area for procedure. When the procedure is completed, you will be taken to outpatient where you will be monitored for several hours. You may have one visitor in this area. Other than holding anti-coagulants, patient may take other medication(s) as scheduled. Prior to your appointment date patients are instructed to hold anti-coagulants after discussing with ordering provider to stop. If unable to discontinue anti-coagulants please notify radiologist. ? No aspirin or warfarin (Coumadin) for 7 days prior to the procedure. ? No clopidogrel (Plavix), ticagrelor (Brilinta), prasugrel (Effient) or dabigatran (Pradaxa) for 5 days prior to the procedure. ? No rivaroxaban (Xarelto), apixaban (Eliquis), dipyridamole (Aggrenox or Persantine) or cilostazol (Pletal) for 2 days prior to the procedure. Medications to discontinue per physician: ____none____ Date to take last dose: Please leave all valuables, including medications, at home the day of procedure. The hospital will not accept responsibility for valuables. Wear comfortable, loose fitting clothing.? Follow any additional instructions given to you from ordering provider. Telephone instructions given to ___patient and asked if any additional questions and then verbalized understanding. Patient advised to call scheduling provider office or registration scheduling [phone] if any additional questions.
[2023-12-30] VITALS (7 sets, daily range): BP systolic 106–114; BP diastolic 54–66; PULSE 53–56; RESP 15–16; O2SAT 96–98
--- NOTE | 2023-12-30 12:29 | SUR.PHASEII ---
1225: discharge information reviewed with patient. patient voices understanding.
[2024-01-06] VITALS (7 sets, daily range): BP systolic 111–141; BP diastolic 55–68; PULSE 59–62; RESP 16–18; O2SAT 96–99
[2024-01-20] VITALS (7 sets, daily range): BP systolic 113–150; BP diastolic 57–86; PULSE 50–58; RESP 16; O2SAT 97–100
--- NOTE | ~2024-01-20 | US_ITS ---
EXAMINATION: US thoracentesis DATE: 12/09/2023 09:58 INDICATION: pleural effusion TECHNIQUE: The procedure and its risks and benefits were discussed with the patient. Potential risks discussed included bleeding, infection, and pneumothorax. The patient understood the risks and agreed to proceed. The skin was prepped and draped in sterile fashion. 1% lidocaine was used for local anes thesia. Under ultrasound guidance, a 5 Fr catheter with trochar was advanced into the right pleural e ffusion. Fluid was aspirated. The catheter was removed, and a dressing was applied. There were no imm ediate complications. FINDINGS: Ultrasound images demonstrate a small to moderate-sized right pleural effusion and the catheter withi n the fluid. IMPRESSION: 1. Successful ultrasound-guided thoracentesis yielding 1100 mL of yellow fluid. Reviewed, dictated and finalized at location A. IMPRESSION: 1. Successful ultrasound-guided thoracentesis yielding 1100 mL of yellow fluid .
--- NOTE | ~2024-01-20 | XR_ITS ---
[id number] Ordering provider: Devin Mosquera MD History: 68 years Female with . Post RT Thoracentesis . Comparison: December 09, 2023 FINDINGS: MEDIASTINUM: The cardiac silhouette is not enlarged. LUNGS: No infiltrates, effusions or pneumothorax. Pleural-based opacities are seen in the right mid thorax unchanged from previous examination. Lucency seen in the right lung bases projected over the upper abdomen most likely in the posterior sulcus of the lung. If still suspicious CT is advised. OTHER: No free air under the diaphragm. IMPRESSION: Opacities are seen in the right midzone unchanged from previous examination. No definite pneumothorax. Lucency is projected over the upper abdomen most likely in the posterior diego lcus of the lung. If still concerned about pneumothorax CT is advised. Reviewed, dictated and finalized at location A. IMPRESSION: Opacities are seen in the right midzone unchanged from previous examination. No definite pneumothorax. Lucency is projected over the upper abdomen most like ly in the posterior sulcus of the lung. If still concerned about pneumothorax C T is advised.
--- NOTE | ~2024-01-20 | US_ITS ---
EXAMINATION: US thoracentesis DATE: 12/23/2023 10:45 INDICATION: pleural effusion TECHNIQUE: The procedure and its risks, benefits, and alternatives were discussed with the patient. P otential risks discussed included bleeding, infection, and pneumothorax. The patient understood the r isks and agreed to proceed. The skin was prepped and draped in sterile fashion. 1% lidocaine was used for local anesthesia. Under ultrasound guidance, a 5 Fr catheter with trochar was advanced into the right pleural effusion. Fluid was aspirated. The catheter was removed, and a dressing was applied. Th ere were no immediate complications. FINDINGS: Ultrasound images demonstrate a right pleural effusion and the catheter within the fluid. IMPRESSION: 1. Successful ultrasound-guided thoracentesis yielding 900 mL of cloudy, yellow fluid. Reviewed, dictated and finalized at location A. IMPRESSION: 1. Successful ultrasound-guided thoracentesis yielding 900 mL of cloudy, yello w fluid.
--- NOTE | ~2024-01-20 | XR_ITS ---
EXAMINATION: [id number]_CR DATE: 12/02/2023 10:06 INDICATION: Right pleural effusion status post thoracentesis. TECHNIQUE: A single frontal view of the chest was obtained. COMPARISON: Chest single view 11/24/2023 FINDINGS: There is a small right pleural effusion with nodular pleural thickening. There is mild atel ectasis at right lung base. No pneumothorax. The heart size is normal. Surgical clips in the right up per quadrant are likely from cholecystectomy. IMPRESSION: 1. Small right pleural effusion with nodular pleural thickening, consistent with lymphoma. Reviewed, dictated and finalized at location A. IMPRESSION: 1. Small right pleural effusion with nodular pleural thickening, consistent wit h lymphoma.
--- NOTE | ~2024-01-20 | XR_ITS ---
[id number]_CR 12/09/2023 09:47 Indication: Post right thoracentesis Procedure: PA view of the chest Comparison: Comparison to multiple prior studies sequentially, with oldest reviewed study dated 11/04. Findings: Heart size normal. Small right pleural effusion. Nodular thickening of the right pleural. N o pneumothorax identified. Left lung clear. Impression: 1: No pneumothorax identified post thoracentesis. Reviewed, dictated and finalized at location B. Impression: 1: No pneumothorax identified post thoracentesis.
--- NOTE | ~2024-01-20 | US_ITS ---
EXAMINATION: US thoracentesis DATE: 12/15/2023 11:06 INDICATION: Right pleural effusion TECHNIQUE: The procedure and its risks and benefits were discussed with the patient. Potential risks discussed included bleeding, infection, and pneumothorax. The patient understood the risks and agreed to proceed. The skin was prepped and draped in sterile fashion. 1% lidocaine was used for local anes thesia. Under ultrasound guidance, a 5 Fr catheter with trochar was advanced into the right pleural e ffusion. Fluid was aspirated. The catheter was removed, and a dressing was applied. There were no imm ediate complications. FINDINGS: Ultrasound images demonstrate a small right pleural effusion and the catheter within the fluid. IMPRESSION: 1. Successful ultrasound-guided thoracentesis yielding 900 mL of cloudy yellow fluid. Reviewed, dictated and finalized at location A.
--- NOTE | ~2024-01-20 | CT_ITS ---
Clinical indication:Abnormal pleural fluid COMPARISON:11/09/2023 and 11/25/2023 TECHNIQUE: Multiple contiguous axial images of the chest were performed without the administration of intravenous contrast. FINDINGS: LUNG:Redemonstration of a right-sided pleural effusion with nodular pleural thickening. No increased attenuation surrounding this effusion to suggest a rind from an empyema. Adjacent atelectasis is note d. The attenuation of the fluid within this effusion is somewhat denser than simple fluid measuring betw een 14 and 17 Hounsfield units. The left hemithorax and remainder of the right are unremarkable. MEDIASTINUM:Redemonstration of mediastinal lymphadenopathy, unchanged from prior. HEART:The heart is of normal size, without pericardial effusion. SOFT TISSUES OF THE CHEST: Unremarkable BONES OF THE CHEST: No lytic or blastic lesions identified within the visualized osseous structures. VISUALIZED PORTION OF THE UPPER ABDOMEN: The gallbladder is surgically absent. Bulky calcifications at the origin of the left renal artery. Lymphadenopathy within the retroperitoneum and at the root of the mesentery, consistent with patient' s known lymphoma. 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 Reviewed, dictated and finalized at location A. 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
--- NOTE | ~2024-01-20 | XR_ITS ---
[id number]_CR 12/30/2023 10:59 Indication: Postthoracentesis. Procedure: AP portable chest Comparison: Comparison to multiple prior studies sequentially, with oldest reviewed study dated 12/01. Findings: Nodular pleural thickening of the right thorax, consistent with lymphoma. Small right pleur al effusion. No pneumothorax identified. Heart size normal. Left lung clear. Impression: 1: No pneumothorax identified post procedure. 2: Nodular right pleural thickening, consistent with known lymphoma. Reviewed, dictated and finalized at location B. Impression: 1: No pneumothorax identified post procedure. 2: Nodular right pleural thickening, consistent with known lymphoma.
--- NOTE | ~2024-01-20 | XR_ITS ---
CHEST RADIOGRAPH CLINICAL HISTORY: POST RIGHT THORACENTESIS . COMPARISON: 12/30/2023 TECHNIQUE: Single portable view of the chest. FINDINGS Right internal jugular central venous port catheter identified with its tip projecting over the cavoa trial junction. The remainder of the cardiomediastinal silhouette is otherwise unremarkable. Lobular soft tissue densities along the right lateral chest wall (and bilateral axilla), consistent w ith patient's known lymphoma. The right lung is fully inflated. Visualized osseous structures and soft tissues are unremarkable. IMPRESSION: No pneumothorax following right-sided thoracentesis, as detailed above. Reviewed, dictated and finalized at location A.
--- NOTE | ~2024-01-20 | XR_ITS ---
EXAMINATION: [id number]_CR DATE: 01/20/2024 10:54 INDICATION: Right pleural effusion status post thoracentesis. TECHNIQUE: A single frontal view of the chest was obtained. COMPARISON: Chest single view 01/06/2024 FINDINGS: There is nodular pleural thickening in right mid and lower lung zones. No pleural effusion or pneumothorax. The heart size is normal. There is a right internal jugular port with tip in superio r vena cava. IMPRESSION: 1. Right-sided nodular pleural thickening, consistent with lymphoma. Reviewed, dictated and finalized at location A. CE SUPPORT ASSOCIATE
--- NOTE | ~2024-01-20 | US_ITS ---
EXAMINATION: US thoracentesis DATE: 01/20/2024 11:03 INDICATION: pleural effusion TECHNIQUE: The procedure and its risks, benefits, and alternatives were discussed with the patient. P otential risks discussed included bleeding, infection, and pneumothorax. The patient understood the r isks and agreed to proceed. The skin was prepped and draped in sterile fashion. 1% lidocaine was used for local anesthesia. Under ultrasound guidance, a 5 Fr catheter with trochar was advanced into the right pleural effusion. Fluid was aspirated. The catheter was removed, and a dressing was applied. Th ere were no immediate complications. FINDINGS: Ultrasound images demonstrate a right pleural effusion and the catheter within the fluid. IMPRESSION: 1. Successful ultrasound-guided thoracentesis yielding 700 mL of opaque, blair fluid. Reviewed, dictated and finalized at location A. CENTER PROJECT MANAGER IMPRESSION: 1. Successful ultrasound-guided thoracentesis yielding 700 mL of opaque, blair f luid.
--- NOTE | ~2024-01-20 | XR_ITS ---
EXAMINATION: [id number] DATE: 12/23/2023 10:33 INDICATION: Right pleural effusion status post thoracentesis. TECHNIQUE: A single frontal view of the chest was obtained. COMPARISON: Chest single view 12/15/2023 FINDINGS: There is nodular pleural thickening on the right. No pneumonia, significant pleural effusio n, or pneumothorax. The heart size is normal. Surgical clips in the right upper quadrant are likely f rom cholecystectomy. IMPRESSION: 1. Nodular pleural thickening in right hemithorax, consistent with lymphoma. Reviewed, dictated and finalized at location A.
--- NOTE | ~2024-01-20 | US_ITS ---
EXAMINATION: US thoracentesis DATE: 12/02/2023 10:19 INDICATION: pleural effusion TECHNIQUE: The procedure and its risks, benefits, and alternatives were discussed with the patient. P otential risks discussed included bleeding, infection, and pneumothorax. The patient understood the r isks and agreed to proceed. The skin was prepped and draped in sterile fashion. 1% lidocaine was used for local anesthesia. Under ultrasound guidance, a 5 Fr catheter with trochar was advanced into the right pleural effusion. Fluid was aspirated. The catheter was removed, and a dressing was applied. Th ere were no immediate complications. FINDINGS: Ultrasound images demonstrate a right pleural effusion and the catheter within the fluid. IMPRESSION: 1. Successful ultrasound-guided thoracentesis yielding 1000 mL of marivel-colored fluid. Reviewed, dictated and finalized at location A. IMPRESSION: 1. Successful ultrasound-guided thoracentesis yielding 1000 mL of marivel-colore d fluid.
--- NOTE | ~2024-01-20 | US_ITS ---
EXAMINATION: US thoracentesis DATE: 12/30/2023 11:07 INDICATION: Right pleural effusion TECHNIQUE: The procedure and its risks and benefits were discussed with the patient. Potential risks discussed included bleeding, infection, and pneumothorax. The patient understood the risks and agreed to proceed. The skin was prepped and draped in sterile fashion. 1% lidocaine was used for local anes thesia. Under ultrasound guidance, a 5 Fr catheter with trochar was advanced into the small right ple ural effusion. Fluid was aspirated. The catheter was removed, and a dressing was applied. There were no immediate complications. FINDINGS: Ultrasound images demonstrate a small right pleural effusion and the catheter within the fluid. IMPRESSION: 1. Successful ultrasound-guided thoracentesis yielding 800 mL of cloudy yellow fluid. Reviewed, dictated and finalized at location A.
--- NOTE | ~2024-01-20 | US_ITS ---
EXAMINATION: US thoracentesis DATE: 01/06/2024 13:03 INDICATION: Right-sided pleural effusion in a patient with follicular lymphoma. TECHNIQUE: The procedure and its risks, benefits, and alternatives were discussed with the patient. Potential risks discussed included bleeding, infection, and pneumothorax. The patient understood the risks and agreed to proceed. The patient was placed in the seated position on the ultrasound stretcher. A timeout was then performed as per protocol. The skin overlying the right posterior lateral chest was prepped and draped in sterile fashion. 1% lidocaine was used for local anesthesia. Under ultrasound guidance, a 5 Fr catheter with trocar was advanced into the right pleural cavity, an d the trocar needle removed. The catheter was then attached to vacuum suction. The fluid was light brown in color, concerning for an abscess. The catheter was then removed. The patient was then brought to CAT scan to evaluate the right posterior lateral chest wall. The pleural effusion on the patient's CT was of denser attenuation than simple fluid and was somewhat nodular in contour. Patient's known pleural seeding was identified. No findings to suggest an empyema were encountered. The patient was returned to the ultrasound suite and placed in the seated position on the ultrasound stretcher. Repeat timeout was performed, as per protocol. The skin overlying the right posterior lateral chest was reprepped and redraped in sterile fashion. 1% lidocaine was used for local anesthesia. Under ultrasound guidance, a 5 Fr catheter with trocar was advanced into the right pleural cavity, an d the trocar needle removed. The catheter was then attached to vacuum suction. The pleural effusion was evacuated in its entirety (approximately 600 cc of light brown fluid). The catheter was then removed, and a sterile dressing was applied. There were no immediate complications. FINDINGS: Ultrasound images demonstrate a small right-sided pleural effusion and the catheter within the fluid. Ultrasound images also demonstrate lobular isoechoic foci along the undersurface of the chest wall, consistent with patient's known follicular lymphoma. IMPRESSION: 1. Technically successful ultrasound-guided thoracentesis yielding 600 mL of light brown fluid. Fluid has now become chylous, rather than simple fluid - an interval change from the previous 8 weekl y thoracentesis procedures. A specimen was sent for triglycerides for confirmation (which is pending at the time of this dictatio n). Reviewed, dictated and finalized at location A. IMPRESSION: 1. Technically successful ultrasound-guided thoracentesis yielding 600 mL of li ght brown fluid. Fluid has now become chylous, rather than simple fluid - an interval change fro m the previous 8 weekly thoracentesis procedures. A specimen was sent for triglycerides for confirmation (which is pending at the time of this dictation).
--- NOTE | 2024-01-20 11:05 | SUR.PHASEII ---
Pt presented to Phase 2 Recovery accompanied by alarm installation technician at 1055. Pt is to remain NPO until 1240 per tech on handoff. Pt can discharge at that time.
== END 2024-03-01 23:59 | disposition home or self-care (01) ==
LOC: ANHIMG 09:52
PROVIDERS: Radiology Diagnostic Radiology; PCP Family Medicine; Referring Provider Radiology Diagnostic Radiology; Visit Provider Internal Medicine Hematology & Oncology
DX: J90 Pleural effusion, not elsewhere classified (principal)
CPT/HCPCS: 32555; 36415; 71250; 84478; 85049; 85610

== ENCOUNTER 2024-04-12 13:25 | Outpatient (CLI) | payer MEDICARE, OTHER, SELFPAY ==
--- NOTE | ~2024-04-12 | MM_ITS ---
EXAMINATION: MM screening ad BI w eulogio HISTORY: Screening TECHNIQUE: Craniocaudal and mediolateral oblique 3-D tomosynthesis images were obtained and synthetic 2-D images were generated. CAD analysis was submitted and interpreted. COMPARISON: Comparison to multiple prior studies sequentially, with oldest reviewed study dated 12/14. BREAST PARENCHYMAL COMPOSITION: Not Dense: The breasts are almost entirely fatty. FINDINGS: There is no evidence of suspicious mass, calcification, or architectural distortion to sugg est malignancy in either breast. There has been no suspicious interval change. IMPRESSION: 1. No mammographic evidence of malignancy. 2. Recommend routine screening mammography in one year. BI-RADS Category 1: Negative Reviewed, dictated and finalized at location A. L OWNER OPERATOR TRUCK DRIVER
== END 2024-04-12 13:26 | disposition home or self-care (01) ==
LOC: MICIMG 13:27
PROVIDERS: PCP Internal Medicine; Visit Provider Internal Medicine
DX: Z12.31 Encounter for screening mammogram for malignant neoplasm of breast (principal)
CPT/HCPCS: 77063; 77067

== ENCOUNTER 2024-07-04 09:38 | Outpatient (CLI) | payer MEDICARE, OTHER, SELFPAY ==
--- NOTE | ~2024-07-04 | PE_ITS ---
EXAMINATION: PET skull to mid thigh DATE: 07/04/2024 11:15 INDICATION: Follicular lymphoma TECHNIQUE: Blood glucose level was 88 mg/dL. 8.246 mCi of 18-fluorodeoxyglucose (18-FDG) was administ ered i.v. Low dose computed tomography (CT) images were acquired from the base of the brain to the pr oximal thighs for attenuation correction and anatomic localization. Positron emission tomography (PET ) images were acquired in the same distribution beginning 47 minutes after injection. Images includin g fused PET/CT images were reconstructed in axial, coronal, and sagittal planes. Automated exposure c ontrol technique was employed. The dose-length product was 1078.64 mGy-cm. COMPARISON: 11/25/2023 FINDINGS: Head/neck: There is symmetric increased activity in the oral cavity, palatine tonsils, laryngeal muscles and ocu lar muscles without CT correlate, likely physiologic. Interval decrease in size of a previously FDG a vid 1.5 x 0.8 cm left submandibular lymph node with maximal SUV of 17 which currently measures 1.2 x 0.4 cm with no evident FDG activity. Similarly there has been interval decrease in size and resolutio n of abnormal FDG uptake associated with bilat. Lower jugular chain and supraclavicular lymph nodes. No new, enlarging or residual abnormally FDG avid lymph nodes in the head or neck. Chest: Right internal jugular central venous port catheter with distal tip at the high right atrium. The waldo or right-sided pleural effusion as well as the FDG avid nodular thickening of the parietal pleura in the right hemithorax have resolved. There is mild dependent atelectasis in both lungs. No suspicious pulmonary nodules, pneumonia, pulmonary edema or pleural effusion. Heart size is normal. Atherosclero tic coronary artery calcification. No pericardial effusion. Thoracic aorta is normal in caliber. Huma larly there is been interval decrease in size and resolution of abnormal FDG uptake associated with a few the normal-sized FDG avid mediastinal lymph nodes seen on the prior study. No residual pathologi fabian enlarged or abnormally FDG avid thoracic lymphadenopathy. Abdomen/pelvis/proximal thighs: Physiologic renal accumulation and excretion of FDG activity in the kidneys, bladder and along portio ns of ureters. Normal degree and heterogenous pattern of increased uptake throughout the liver withou t radiologic correlate or dominant FDG avid lesion. Cholecystectomy clips the gallbladder fossa. The pancreas, spleen and bilateral adrenal glands are normal. Mild uptake scattered throughout the bowels without radiologic correlate, also likely physiologic. Similarly there has been significant interval decrease in size of the multiple enlarged retroperitoneal lymph nodes which previously extended caud ally along the left and right sides of the aorta and along the left common and external iliac chains into the left inguinal region as well as a few additional lymph nodes along the right external iliac chain and in the right inguinal region For reference a left para-aortic lymph node previously measuri ng 2.9 x 2.2 cm with maximal SUV of 19.6 currently measures 12 x 7 mm with no discernible FDG activit y. A previously 3.6 x 2.5 cm left inguinal lymph node with maximal SUV of 24.4 has decreased to 1.4 x 0.8 cm with no discernible FDG uptake. Musculoskeletal: Right total hip arthroplasty. There is mild increased uptake overlying the left greater trochanter wi thout radiologic correlate consistent with trochanteric bursitis. No suspicious lytic, blastic or abn ormally FDG avid bone lesions. IMPRESSION: 1. Significant interval decrease in size and resolution of prior abnormal FDG uptake associated with multiple lymph nodes extending from the left mandibular region of the neck, mediastinum and retroperi toneum to the bilateral inguinal regions consistent with response to treatment of reported follicular lymphoma. 2. Resolution of prior likely malignant right pleural effusion as well as of the nodular FDG avid nod ules at the periphery of the right parietal pleura also consistent with response to treatment of repo rted lymphoma. Reviewed, dictated and finalized at location A. IMPRESSION: 1. Significant interval decrease in size and resolution of prior abnormal FDG u ptake associated with multiple lymph nodes extending from the left mandibular r egion of the neck, mediastinum and retroperitoneum to the bilateral inguinal re gions consistent with response to treatment of reported follicular lymphoma. 2. Resolution of prior likely malignant right pleural effusion as well as of th e nodular FDG avid nodules at the periphery of the right parietal pleura also c onsistent with response to treatment of reported lymphoma.
[2024-07-04 09:56] LABS: Glucose Point of Care 88 mg/dl (65-105)
--- OUTSIDE RECORDS SUMMARY | 2024-07-04 10:44 | XMS_ITS | Clinical Summary ---
Author Organization [facility] Address [address] [place] [address] Care Team Providers Care Plating Technician Name Role Phone Adam Castelan MD Primary Care Provider Source Comments [facility],non-owned Affiliates and Associated Physician Practices is amultiple site organization consisting of ambulatory clinics and hospital sitesin [place], [place], [place] and [place]. This disclosure is being madepursuant to the Care Everywhere program and may not contain all information available regarding this patient. Last updated 12/03/17.[employer] [facility] Allergies Active Allergy Reactions Criticality Noted Date Comments Cefaclor Rash Medium 10/12/2017 Medications * Be aware that medications may not be up to date on this document. Alwaysverify current medications with the patient. amLODIPine (NORVASC) 10 MG tablet Take 10 mg by mouth once daily Active benazepril (LOTENSIN) 10 MG tablet Take 10 mg by mouth once daily Active Social History Tobacco Use Types Packs/Day Years Used Date Smoking Tobacco: Former Cigarettes Q uit: 1997 Smokeless Tobacco: Never Comments No Sex and Gender Information Value Date Recorded Sex Assigned at Not on file Legal Sex Female 8:46 AM CDT Gender Identity Not on file Sexual Orientation Not on file Last Filed Vital Signs Vital Sign Reading Time Taken Comments Blood Pressure 126/80 10/12/2017 9:22 AM CDT Pulse - - Temperature 36.7 C (98.1 F) 10/12/2017 9:22 AM CDT Respiratory Rate 16 10/12/2017 9:22 AM CDT Oxygen Saturation - - Inhaled Oxygen Concentration - - Weight 90.7 kg (200 lb) 10/12/2017 9:22 AM CDT Height 175.3 cm (5' 9 ) 10/12/2017 9:22 AM CDT Body Mass Index 29.53 10/12/2017 9:22 AM CDT Plan of Treatment Health Maintenance Due Date Last Done Comments BONE DENSITY TESTING 1954 COLOGUARD (AGES 45-75) - COL ON CA SCREENING 1954 COLON MONITORING 1954 COLONOSCOPY - COLON CA SCREENING 1954 CT COLONOGRAPHY - COLON CA SCREENING 1954 Colorectal Cancer Screening 1954 FIT - COLON CA SCREENING 1954 FLEX SIG - COLON CA SCREENING 1954 LIPID TESTING 1954 MAMMOGRAM 1954 MEDICARE AWV 12 MONTHS 1954 COVID-19 VACCINE (#1) 08/24/1959 HEPATITIS C SCREENING 08/18/1972 DTAP/TDAP/TD VACCINES (1 - Tdap) 1973 PNEUMOCOCCAL VACCINE 50+ (1 of 2 - PCV) 1973 ZOSTER VACCINE (1 of 2) 1973 Respiratory Syncytial Virus (RSV) Vaccine Pt: or over 60 yrs (1 - Risk 60-74 years 1-dose series) 2014 SCREENING FOR DIABETES 10/12/2017 DEPRESSION SCREENING 03/15/2024 INFLUENZA VACCINE (Season Ended) 2024 HEPATITIS B VACCINE Aged Out No longe r eligible based on patient's age to complete this topic HIB VACCINE Aged Out No longer eligi ble based on patient's age to complete this topic HPV VACCINE Aged Out No longer eligi ble based on patient's age to complete this topic MENINGOCOCCAL (Group B) VACC INE SHARED DECISION-MAKING Aged Out No longer eligibl e based on patient's age to complete this topic MENINGOCOCCAL GROUPS A/C/Y/W VACCINE Aged Out No longer eligible b ased on patient's age to complete this topic Insurance MEDICARE MEDICARE [facility] [place] [phone] SELF PAY NO INSURANCE Member Subscriber Plan / Payer (Ef fective for All Dates) Name:Chapito Brooks Member ID:Not on file Relation to Subscriber:Not on file Name:CHAPITO BROOKS Subscriber ID:Not on file (Home) Address: [address] [place] [address] Payer ID:Not on file Group ID:Not on file Type:Self Pay Address: [place], [place] Care Teams Plating Technician Relationship Specialty Start Date End Date Adam Castelan MD [address] [place] [address] [facility] - General 11/12/20
--- OUTSIDE RECORDS SUMMARY | 2024-07-04 10:44 | XMS_ITS | Data Portability ---
Author Organization [place] - [email or web address], Main Office Address [address] [place] [address] Care Team Providers Care Mortician Helper Name Role Phone AKASH ENGLAND Primary Care Provider [phone] AKASH ENGLAND Referring Provider [phone] Assessment Encounter Date Assessment Date Assessment LastModified by Organization Details LastModified Time 01/01/2023 01/01/2023 HPI: Patient returns. She is here for evaluation of her left hip/ buttock pain. She started getting pain over the summer. She does not recall any activity or trauma that started it. She mostly feels that if she has been sitting for a longer period time and then goes to get up from seated position. She walks 3 miles every other day and has no symptoms. We did her right hip replacement in 2016. She has known osteoarthritis in the left hip she was concerned that her left hip was getting worse and wanted to come in for evaluation. Patient is not having any groin pain or anterior thigh pain. She has little bit of pain to the lateral hip and more into the buttocks. No symptoms radiating down the legs. Physical exam: 67-year-old female very alert pleasant. She walks very well today. She has flexion left hip to 120 externally rotates to 40 internally rotates to 20. With internal rotation she feels little bit of pain in the buttocks. No groin pain or anterior lateral hip pain with range of motion. Negative Stinchfield maneuver. She has a faint bit of tenderness over the greater trochanter to palpation normal abduction strength. There is no tenderness to palpation of the left-sided low back or into the buttocks. Again no radicular symptoms running down the leg. Impression: Patient is having pain in the left buttocks. She has not have any physical exam findings that would point towards her hip. There has been no progression of the arthritis in her hip since 2016. I advised her that I think this pain is more likely coming from her back, she may have had a strain in the back or strain in the muscles in the buttocks due to the fact she is very active in her yd. Symptoms overall are mild. She more last wanted reassurance that her hip was doing okay and I did show her the x-rays from 2016 and compared them to the x-rays today and there has been no change. And her complaints and her physical exam findings are not point at her hip as being the source of it as well. I did offer her formal physical therapy and she declined. She is going to give this a bit more time. She is going to take [id number] anti-inflammatori es and hopefully this will take care of the issue. If does not she will call she may need more evaluation of her low back if she has continued symptoms. Otherwise we will see her back at her 5 year follow-up with x-rays the right hip. 20 minutes was spent in treatment patient with more than half of this in [id number] conversation blanca Not available 01/01/2023 12:44:30 Plan of Treatment Reminders Order Date Submit Date Provider Last Modified By Organization Details Last Modified Time Details Appointments None recorded. Lab None recorded. Referral None recorded. Procedures None recorded. Surgeries None recorded. Imaging XR, hip + pelvis, unilateral 2022 023 [email or web address] [place], [address], [place], [address], 17:22:55 Medication Orders None recorded. Patient TargetsNo targets recorded. Patient InstructionsNo instructions recorded. Reason for Referral None Reported. Results Created Date Observation Date Name Description Value Unit Range Abnormal Flag Note LastModifiedBy Organization Detail LastModifiedTime 10/07/19 22 XR, hip + pelvi s, unila teral No observ ation record ed. [id number] [facility] [place] [address], [place], [address], 05/13/2022 06:07:38 01/02/20 23 XR, hip + pelvi s, unila teral No observ ation record ed. [email or web address] [facility] [place] [address], [place], [address], 01/01/2023 12:41:06 Result Notes None recorded. Problems Name Problem SNOMED Code Status Onset Date Resolution Date Notes Provider Name and Address Organization Details Recorded Time Localized, primary osteoarthr itis of the pelvic region and thigh 091342615 Active Not Available [facility] 3 06:00:11 Recurrent dislocatio n of shoulder region 49096412 Active Not Available [facility] 3 06:00:11 Enthesopat hy of hip region 77935464 Active Not Available [facility] 3 06:00:11 Disorder of bursa of shoulder region 18352599 Active Not Available [facility] 3 06:00:11 Pain of left hip joint 1944966007825 00 Active 2022 BILLY [place], [place] [facility] 3 12:21:14 Problem Notes None recorded. Procedures Surgical History Date Name Laterality Status Provider Name and Address Organization Details Recorded Time Hip surgery completed Not Available [facility] 05/13/2022 05:54:39 Foot Surgery completed Not Available [facility] 05/13/2022 05:54:39 Imaging Results Imaging Date Name Status [facility]Modified by [facility] Details LastModified Time 10/06/2021 XR, hip + pelvis, unilateral completed [id number] [facility] [place] [address] [facility] [address], [place], [address], 05/13/2022 06:07:38 01/01/2023 XR, hip + pelvis, unilateral completed [email or web address] [facility] [place] [address] [facility] [address], [place], [address], 01/01/2023 12:41:06 Procedure Notes None recorded. Medical Equipment None Reported. Allergies Allergen ID Allergen Name Allergen Category Reaction Reaction Severity Criticality Documentation Date Start Date Code Code System Note Provider Name and Address Organization Details Recorded Time 75761 Ceclor medicatio n Not available Not available Not available 01/01/2023 5 RxNorm BILLY Cruz[place] - [place] [id number] [facility] 3 12:19:02 Medications Name Sig Start Date Stop Date Status Note LastModified by Organization Details LastModified Time cyclobenzap rine 10 mg tablet 10/06 completed Not Available Not Available Not Available amoxicillin 500 mg capsule TK FOUR CS PO 1 HOUR B DAPP 01/01 completed Not Available Not Available Not Available doxycycline hyclate 100 mg capsule TAKE 1 CAPSULE BY MOUTH ONCE DAILY active Not Available Not Available No t Available ketoconazol e 200 mg tablet 10/06 completed Not Available Not Available Not Available azithromyci n 250 mg tablet FOLLOW PACKAGE DIRECTION S 10/06 completed Not Available Not Available Not Available hydrocodone 5 mg-acetamin ophen 325 mg tablet TAKE 1 TABLET BY MOUTH EVERY 6 HOURS NEEDED FOR PAIN 01/01 completed Not Available Not Available Not Available metronidazo le 0.75 % (37.5 mg/5 gram) vaginal gel 10/06 completed Not Available Not Available Not Available amlodipine 5 mg tablet TAKE 1 TABLET BY MOUTH DAILY 01/01 completed Not Available Not Available Not Available sulfamethox azole 800 mg-trimetho prim 160 mg tablet TAKE 1 TABLET BY MOUTH EVERY 12 HOURS UNTIL GONE 10/06 completed Not Available Not Available Not Available triamcinolo ne acetonide 0.1 % topical cream 10/06 completed Not Available Not Available Not Available ciclopirox 8 % topical solution APPLY TO AFFECTED NAILS EVERY DAY DIRECTED 01/01 completed Not Available Not Available Not Available oxycodone-a cetaminophe n 5 mg-325 mg tablet 10/06 completed Not Available Not Available Not Available aspirin 325 mg tablet,abhinav yed release 10/06 completed Not Available Not Available Not Available betamethaso ne valerate 0.1 % topical cream 10/06 completed Not Available Not Available Not Available amlodipine 10 mg tablet TAKE 1 TABLET BY MOUTH DAILY active Not Available Not Available No t Available benzonatate 100 mg capsule TAKE 1 CAPSULE BY MOUTH THREE TIMES DAILY NEEDED FOR COUGH 10/06 completed Not Available Not Available Not Available hydrocortis one 1 % topical cream APPLY TO AFFECTED AREA(S) OF SKIN TWICE DAILY. 10/06 completed Not Available Not Available Not Available cephalexin 500 mg capsule 10/06 completed Not Available Not Available Not Available diclofenac 50 mg-misopros bill 200 mcg tablet,imme d.and delayed release 10/06 completed Not Available Not Available Not Available mupirocin 2 % topical ointment 10/06 completed Not Available Not Available Not Available diclofenac sodium 50 mg tablet,abhinav yed release 10/06 completed Not Available Not Available Not Available benazepril 10 mg tablet 01/01 completed Not Available Not Available Not Available fluticasone propionate 50 mcg/actuati on nasal spray,suspe nsion SHAKE LIQUID AND USE 1 TO 2 SPRAYS IN EACH NOSTRIL 1 TO 2 TIMES DAILY 01/01 completed Not Available Not Available Not Available amoxicillin 875 mg-potassiu m clavulanate 125 mg tablet TAKE 1 TABLET BY MOUTH TWICE DAILY 10/06 completed Not Available Not Available Not Available clindamycin phosphate 1 % topical solution APPLY 2 DROPS TO PROCEDURE SITE EVERY DAY 10/06 completed Not Available Not Available Not Available enoxaparin 40 mg/0.4 mL subcutaneou s syringe INJECT 1 SYRINGE EVERY 24 HOURS active Not Available Not Available No t Available Premarin 0.625 mg/gram vaginal cream USE 1 GRAM VAGINALLY AT NIGHT 2 TIMES PER WEEK FOR MAINTENAN CE 01/01 completed Not Available Not Available Not Available Clindesse 2 % vaginal cream,exten ded release INSERT 1 APPLICATO RFUL VAGINALLY ONCE active Not Available Not Available No t Available Boostrix Tdap 2.5 Lf unit-8 mcg-5 Lf/0.5 mL intramuscul ar syringe 10/06 completed Not Available Not Available Not Available chlorhexidi ne gluconate 0.12 % mouthwash 10/06 completed Not Available Not Available Not Available aspirin 2021 active Not Available Not Available Not Avai lable Fish Oil 2021 active Not Available Not Available Not Avai lable Glucosamine 2021 active Not Available Not Available Not Avai lable Acidophilus 01/01 completed Not Available Not Available Not Available multivitami n 2021 active Not Available Not Available Not Avai lable diclofenac 1 % topical gel 10/06 completed Not Available Not Available Not Available sodium,pota ssium,mag sulfates 17.5 gram-3.13 gram-1.6 gram oral soln MIX AND DRINK DIRECTED active Not Available Not Available No t Available Fluvirin 45 mcg (15 mcg x 3)/0.5 mL intramuscul ar suspension ADM 0.5ML UTD active Not Available Not Available No t Available Fluvirin 45 mcg (15 mcg x 3)/0.5 mL intramuscul ar suspension ADM 0.5ML IM UTD active Not Available Not Available No t Available Fluvirin (PF) 45 mcg (15 mcg x 3)/0.5 mL intramuscul ar syringe ADM 0.5ML IM UTD active Not Available Not Available No t Available Shingrix (PF) 50 mcg/0.5 mL intramuscul ar suspension, kit 10/06 completed Not Available Not Available Not Available BinaxNOW COVID-19 Ag Self Test kit TEST DIRECTED TODAY 01/01 completed Not Available Not Available Not Available Paxlovid 300 mg (150 mg x 2)-100 mg tablets in a dose pack FOLLOW PACKAGE DIRECTION S 01/01 completed Not Available Not Available Not Available Vitals Date Recorded Body mass index (BMI) Body height Body weight Provider Name and Address Organization Details Last Updated DateTime 10/06/2021 24.6 kg/m2 172.72 cm 93860.96 g Not Available [facility] 05/13/2022 05:57:02 Date Recorded Body height Body mass index (BMI) Body weight Provider Name and Address Organization Details Last Updated DateTime 01/01/2023 172.72 cm 24.8 kg/m2 49487.56 g BILLY Cruz [email or web address] 01/01/2023 12:25:21 Social History Question Answer Notes LastModified by Organizat ion Details LastModified Time Tobacco Smoking Status Never Smoker BILLY Cruz [place] [email or web address] 01/01/2023 12:20:38 What Is Your Level Of Alcohol Consumption? None [email or web address] Information not available 01/01/2023 Sex: Unknown Functional Status None recorded. Mental Status None recorded. Family History Relationship Description Onset Age of this Age Resolved Age Notes LastModified by Organization Details LastModified Time Father Heart disease [id number] Not available 05/13/2022 05:54:41 Mother Heart disease [id number] Not available 05/13/2022 05:54:41 Unspecified Relation Hypertensive disorder [id number] Not available 05/13/2022 05:54:41 Medical History Condition Response BLINDNESS N KIDNEY STONES N MRSA N CARPAL TUNNEL SYNDROME N LUNG DISEASE/DISORDER N HISTORY OF DRUG ABUSE N RADIATION / CHEMOTHERAPY N COPD N SPORTS INJURY N ANKLE PAIN N BLOOD DISEASES N SCHIZOPHRENIA N SHINGLES N BOWEL PROBLEMS N SHOULDER PAIN N DEPRESSION (INCLUDING POST ) N STROKE/TIA N KNEE PAIN N ULCERS N BENIGN PROSTATIC HYPERPLASIA N OBESITY N GERD/NAUSEA N ANEURYSM N URINARY/BLADDER/KIDNEY PROBLEMS N CORONARY ARTERY DISEASE (CAD) N ADDICTION CONCERNS N USE OF BLOOD THINNERS N SKIN PROBLEMS N EMPHYSEMA N MUSCLE,JOINT OR BONE PROBLEMS N DVT N STOMACH ULCERS N BLOOD CLOTS N USE OF NSAIDS N CONCUSSION OR SPINAL TRAUMA N NEUROPATHY N AIDS/HIV N FRACTURES N ELBOW PAIN N HYPERTENSION Y TOURETTE'S N ANXIETY DISORDER N Metal allergy N BLOOD TRANSFUSION N ANEMIA/BLOOD DISORDER N BIPOLAR DISORDER N BRONCHITIS N OSTEOARTHRITIS N TUBERCULOSIS N FOOT PROBLEM N HEART VALVE DISORDERS N ALLERGIES/HAYFEVER N SOFT TISSUE INJURY N INFECTIOUS DISEASE N HEART ARRHYTHMIA N INSOMNIA N RHEUMATOID ARTHRITIS N HIGH CHOLESTEROL / HYPERLIPIDEMIA N EDEMA N CHRONIC PAIN SYNDROME N CAROTID BLOCKAGE N BACK / NECK PROBLEMS N HAVE YOU BEEN HOSPITALIZED OR SEEN IN [facility] IN THE PAST YEAR ? N BURSITIS N HERNIATED DISC N DIALYSIS N FIBROMYALGIA N OSTEOPOROSIS N ARTHRITIS N NO SIGNIFICANT PAST MEDICAL HISTORY N PERIPHERAL NEUROPATHY N DIABETES, TYPE N HEARTBURN / REFLUX N HEPATITIS / LIVER DISEASE N GOUT N SLEEP DISORDER N ALZHEIMER'S DISEASE N HERPES N SEIZURES/EPILEPSY N HEADACHES/MIGRAINES N VASCULAR DISEASE N HIP PAIN N Blood Disorder N DIZZINESS N HEAD TRAUMA OR INJURY N HEART DISEASE/HEART PROBLEMS N MULTIPLE SCLEROSIS N CARDIAC ARRHYTHMIA N CANCER: SPECIFY Y ANESTHESIA COMPLICATIONS N ATRIAL FIBRILLATION N AUTOIMMUNE DISEASE N Gynecological HistoryNo gynecological history recorded. Obstetrics History GPAL:G 0 P 0 0 0 0 Past Encounters Encounter ID Performer Location Encounter Start Date Encounter Closed Date Diagnosis/Indication Diagnosis SNOMED-CT Code Diagnosis ICD10 Code Diagnosis Note [id number] [facility] [place] [address] [place] [id number] 10/06/2021 00:00:00 10/06/2021 15:05:05 [id number] IVONNE Sanders [facility] [place] [address] [place] [id number] 01/01/2023 12:02:05 01/01/2023 12:51:12 Pain of left hip joint 6869258477 35731 M25.552 Health Concerns Section Related Observation LastModified by Organization Detai ls LastModified Time None Recorded Concern Status LastModified by Organization Details LastModified Time None Recorded Advance Directives Directive None Recorded Payers Encounter Date Sequence Insurance Name Policy Number Policy Cruz Covered Member ID Cruz Member ID Guarantor Name 01/01/2023 1 [place] Carmelina Brooks [id number] Carmelina Brooks 01/01/2023 2 [facility] (MEDICARE SUPPLEMENT) Carmelina Brooks [id number] Carmelina Brooks OBGyn Episode No OBEpisode recorded.
--- OUTSIDE RECORDS SUMMARY | 2024-07-04 10:44 | XMS_ITS | Encounter Summary ---
Author Organization [facility] Address [address] [place] [address] Care Team Providers Care Brake Holder Name Role Phone Chilo Ashby DO Primary Care Provider Encounter Details Date Type Department Care Team (Late Contact Info) Description 07/03/2024 Orders Only [facility] Oncology and Hematology - [place] [address] [place] [address] Spike Harvey MD [address] [place] [address] Follicular lymphoma, unspecified grade, unspecified body region (CMS/HCC) Social History Tobacco Use Types Packs/Day Years Used Date Smoking Tobacco: Former Cigarettes Smokeless Tobacco: Never Comments:quit over 23 yrs ag o Alcohol Use Standard Drinks/Week Comments Yes 0 (1 standard drink = 0.6 oz pur e alcohol) Comments No Sex and Gender Information Value Date Recorded Sex Assigned at Female 11/25/2023 6:02 AM CDT Legal Sex Female 2:01 PM CDT Gender Identity Female 11/25/2023 6:02 AM CDT Sexual Orientation Straight 11/25/2023 6: 02 AM CDT documented as of this encounter Plan of Treatment Upcoming Encounters Date Type Department Care Team (Late Contact Info) Description 07/12/2024 9:30 AM CDT Office Visit [facility] Oncology and Hematology - [place] [address] [place] [address] Spike Harvey MD [address] [facility] [address] [place] [address] documented as of this encounter Visit Diagnoses Diagnosis Follicular lymphoma, unspecified grade, unspecified body region (CMS/HCC) documented in this encounter Care Teams Brake Holder Relationship Specialty Start Date End Date Chilo Ashby DO [address] [address] PCP - General Internal Medicine 04/03/24 documented as of this encounter
--- OUTSIDE RECORDS SUMMARY | 2024-07-04 10:44 | XMS_ITS | Clinical Summary ---
Author Organization [facility] Sivan Hall Address [address] [place] [address] Care Team Providers Care Hand Slitter Name Role Phone Chilo Ashby Primary Care Provider Allergies Active Allergy Reactions Criticality Noted Date Comments Cefaclor Rash Medium 10/12/2017 Medications amLODIPine (NORVASC) 10 mg tablet Take 10 mg by mouth. Active benazepriL (LOTENSIN) 10 mg tablet Take 10 mg by mouth. Active Fish Oil-DHA-EPA 1,200-144-216 mg Capsule Take by mouth. Active Glucosamine-Marcus d-MSM-Vit C-Mn 500-400-166.6 mg Tablet Take by mouth. Active acidophilus-pect in, citrus 100 million cell-10 mg Capsule Take by mouth. Active Multivitamin Capsule Take 1 Capsule by mouth daily. Active psyllium husk (MetamuciL) 0.4 gram Capsule Take 2 Capsules by mouth. Active Flowflex COVID-19 Ag Home Test Kit DIRECTED 2 Active lidocaine-priloc hung (EMLA) 2.5-2.5 % Cream Apply quarter size amount to port site 30 minutes prior to access. 30 Gram 1 4 Active ondansetron (ZOFRAN ODT) 8 mg Tablet, Rapid Dissolve Dissolve 1 tablet on top of tongue then swallow with saliva every 8 hours as needed for nausea or vomiting 30 Tablet 1 4 Active zolpidem (AMBIEN) 10 mg tabletIndication s:Follicular lymphoma, unspecified grade, unspecified body region (CMS/HCC) Take 1 Tablet (10 mg) by mouth nightly as needed for Insomnia. 30 Tablet 4 Active Active Problems Problem Noted Date Diagnosed Date History of follicular lymphoma 09/23/2020 Encounters Date Type Department Care Team Description 07/03/2024 Orders Only [facility] Oncology and Hematology - [place] [address] Spike Harvey MD Follicular lymphoma, unspecified grade, unspecified body region (CMS/HCC) 06/19/2024 Orders Only [facility] Oncology and Hematology - [address] [place] [address] Spike Harvey MD Follicular lymphoma, unspecified grade, unspecified body region (CMS/HCC) 06/05/2024 Orders Only [facility] Oncology and Hematology - [place] [address] Spike Harvey MD Follicular lymphoma, unspecified grade, unspecified body region (CMS/HCC) 05/31/2024 External Device Data STL ABSTRACTION Provider, Abstract 05/31/2024 Orders Only [facility] Oncology and Hematology - [place] [address] Spike Harvey MD 05/29/2024 10:15 AM CDT Office Visit [facility] Oncology and Hematology - [place] [address] Spike Harvey MD Follicular lymphoma, unspecified grade, unspecified body region (CMS/HCC) (Primary Dx) 05/29/2024 Orders Only [facility] Oncology and Hematology - [place] [address] [place] [id number] Spike Harvey MD 05/22/2024 Orders Only [facility] Oncology and Hematology - [address] [place] [id number] Spike Harvey MD Follicular lymphoma, unspecified grade, unspecified body region (CMS/HCC) 05/20/2024 External Device Data STL ABSTRACTION Provider, Abstract 05/19/2024 External Device Data STL ABSTRACTION Provider, Abstract 05/17/2024 External Device Data STL ABSTRACTION Provider, Abstract 05/17/2024 External Device Data STL ABSTRACTION Provider, Abstract 05/08/2024 Orders Only [facility] Oncology and Hematology - [address] [place] [id number] Spike Harvey MD Follicular lymphoma, unspecified grade, unspecified body region (CMS/HCC) 05/03/2024 External Device Data STL ABSTRACTION Provider, Abstract 05/01/2024 9:00 AM CHEMICAL PROCESSING SUPERVISOR Office Visit [facility] Oncology and Hematology - [place] [place] [address] Spike Harvey MD Follicular lymphoma, unspecified grade, unspecified body region (CMS/HCC) (Primary Dx) 04/24/2024 Orders Only [facility] Oncology and Hematology - [place] [place] [address] Spike aHrvey MD Follicular lymphoma, unspecified grade, unspecified body region (CMS/HCC) 04/12/2024 Telephone [facility] Oncology and Hematology - [address] [place] [address] Spike Harvey MD Mammogram Questions 04/10/2024 Orders Only [facility] Oncology and Hematology - [place] [place] [id number] Spike Harvey MD Follicular lymphoma, unspecified grade, unspecified body region (CMS/HCC) 04/06/2024 External Device Data STL ABSTRACTION Provider, Abstract from Last 3 Months Family History Medical History Relation Name Comments Healthy Brother 1 Healthy Brother 2 Diabetes Father Heart Disease Father Heart Disease Mother Healthy Sister 1 Healthy Sister 2 Healthy Son Relation Name Status Comments Brother 1 Alive Brother 2 Alive Father Mother Sister 1 Alive Sister 2 Alive Son Alive Social History Tobacco Use Types Packs/Day Years Used Date Smoking Tobacco: Former Cigarettes Smokeless Tobacco: Never Tobacco Cessation:Counseling Given: Not Answered Comments:quit over 23 yrs ago Alcohol Use Standard Drinks/Week Comments Yes 0 (1 standard drink = 0.6 oz pur e alcohol) Comments No Sex and Gender Information Value Date Recorded Sex Assigned at Female 11/25/2023 6:02 AM CDT Legal Sex Female 2:01 PM CDT Gender Identity Female 11/25/2023 6:02 AM CDT Sexual Orientation Straight 11/25/2023 6: 02 AM CDT Last Filed Vital Signs Vital Sign Reading Time Taken Comments Blood Pressure 121/69 05/29/2024 10:07 AM CDT Pulse 55 05/29/2024 10:07 AM CDT Temperature 35.9 C (96.7 F) 05/29/2024 10:07 AM CDT Respiratory Rate 15 05/29/2024 10:07 AM CDT Oxygen Saturation 96% 05/29/2024 10:07 AM CDT Inhaled Oxygen Concentration - - Weight 79.7 kg (175 lb 9.6 oz) 05/29/2024 10:07 AM CDT Height 175.3 cm (5' 9 ) 09/23/2021 9:37 AM CDT Body Mass Index 25.93 09/23/2021 9:37 AM CDT Plan of Treatment Upcoming Encounters Date Type Department Care Team (Late st Contact Info) Description 07/12/2024 9:30 AM CDT Office Visit [facility] Oncology and Hematology - [place] [address] [facility] [address] [place] [address] Spike Harvey MD [address] [facility] [address] [place] [address] Health Maintenance Due Date Last Done Comments Pre-Diabetes and Diabetes Screening 1954 DTAP/TDAP/TD VACCINES (1 - Tdap) 1973 FIT-DNA Q 3 years 08/24/1999 FIT/FOBT Q 1 year 08/24/1999 Flex Sig/CT Colonography Q 5 years 08/24/1999 RSV VACCINE (60+ or ) (1 - Risk 60-74 years 1-dose series) 2014 ZOSTER VACCINE (2 of 2) 12/07/2017 10/12/2017 PNEUMOCOCCAL VACCINE 50+ YEA RS (2 of 2 - PCV) 09/27/2020 09/28/2019 INFLUENZA VACCINE (#1) 2023 11/15/2019, 2018 BREAST CANCER SCREENING 03/01/2024 03/01/20 23, 03/01/2023, 02/26/2022, Additional history exists OSTEOPOROSIS SCREENING 04/01/2026 04/01/2021 COLORECTAL SCREENING 09/21/2033 09/22/2023, 10/29/2020, 08/28/2019, Additional history exists Colorectal Cancer Screening 09/21/2033 Procedures Procedure Name Priority Date/Time Associated Diagnosis Comments COMPREHENSIVE METABOLIC PANEL Routine 05/29/2024 3:57 PM CDT BASIC METABOLIC PANEL Routine 05/29/2024 1:12 PM CDT CBC WITH DIFFERENTIAL Routine 05/29/2024 1:11 PM CDT from Last 3 Months Results * COMPREHENSIVE METABOLIC PANEL (05/29/2024 3:57 PM CDT) Blood us Spike Harvey MD CHEMISTRY ORDERABLES Final Resu lt * BASIC METABOLIC PANEL (05/29/2024 1:12 PM CDT) Blood us Spike Harvey MD CHEMISTRY ORDERABLES Final Resu lt * CBC WITH DIFFERENTIAL (05/29/2024 1:11 PM CDT) Blood us Spike Harvey MD HEMATOLOGY ORDERABLES Final Res ult from Last 3 Months Insurance MEDICARE PART A AND [place] [address] Care Teams Hand Slitter Relationship Specialty Start Date End Date Chilo Ashby DO [address] [address] PCP - General Internal Medicine 04/03/24
--- OUTSIDE RECORDS SUMMARY | 2024-07-04 10:44 | XMS_ITS | Referral Summary ---
Author Organization [facility] Address [address] [facility] [place] [address] Phone Care Team Providers Care Bi Data Architect Name Role Phone Adam Samaniego MD Unavailable [phone] Bret Jon DO Primary Care Provider [phone] Allergies Active Allergy Reactions Criticality Noted Date Comments Cefaclor Rash Medium 10/12/2017 Medications amLODIPine (NORVASC) 10 mg tablet Take 10 mg by mouth. Active benazepril (LOTENSIN) 10 mg tablet Take 10 mg by mouth. Active multivitamin capsule Take 1 capsule by mouth daily. Active fish oil-dha-epa 1,200-144-216 mg capsule Take by mouth. Active glucosamine-cho nd-msm-vit C-Mn 500-400-166.6 mg tablet Take by mouth. Active estrogens, conjugated, (PREMARIN) 0.625 mg tablet Take 0.625 mg by mouth daily Take daily for 21 days then do not take for 7 days. Active aspirin 81 mg tablet Take 81 mg by mouth daily. Active acidophilus-pec tin, citrus 100 million cell-10 mg capsuleIndicati ons:PROBIOTIC Take by mouth. Active azithromycin (ZITHROMAX) 250 mg tablet Take 2 tabs (500 mg) by mouth today, than 1 daily for 4 days. 6 tablet 09/08/2021 Active Active Problems Problem Noted Date Diagnosed Date Follicular lymphoma grade I 11/30/2017 Cancer Staging:Clinical stage from 02/10/2006:Stage IV(Follicular lymphoma) - Signed by Adam Samaniego MD on 12/01/2017 Immunizations Immunization Administration Dates Next Due Influenza, Quadrivalent, Hig h Dose, Preservative Free, Intrr 11/15/2019 Influenza, Quadrivalent, Spl it, Preservative Free, Intramuscular 11/17/2018 Influenza, Unspecified 11/30/2017 Pneumococcal Polysaccharide PPV23 09/28/2019 ZOSTER Recombinant 10/12/2017 Social History Tobacco Use Types Packs/Day Years Used Date Smoking Tobacco: Former Cigarettes Q uit: 1997 Smokeless Tobacco: Never Tobacco Cessation:Counseling Given: Not Answered Alcohol Use Standard Drinks/Week Comments Yes 0 (1 standard drink = 0.6 oz pur e alcohol) Personal Safety Answer Date Recorded Getting School Help Needed Not on file 05/12 Comments Unknown Sex and Gender Information Value Date Recorded Sex Assigned at Not on file Legal Sex Female 12:51 PM FINANCIAL AID Gender Identity Female 08/30/2021 2:51 PM CDT Sexual Orientation Straight 08/30/2021 2: 52 PM CDT Last Filed Vital Signs Vital Sign Reading Time Taken Comments Blood Pressure 116/62 12/31/2021 9:33 AM CDT Pulse 56 12/31/2021 9:33 AM CDT Temperature 37.2 C (98.9 F) 08/30/2021 11:09 AM CDT Respiratory Rate 18 08/30/2021 11:09 AM CDT Oxygen Saturation 98% 12/31/2021 9:33 AM CDT Inhaled Oxygen Concentration - - Weight 72.6 kg (160 lb) 12/31/2021 9:33 AM CDT Height 172.7 cm (5' 8 ) 12/31/2021 9:33 AM CDT Body Mass Index 24.33 12/31/2021 9:33 AM CDT Plan of Treatment Not on file Insurance MEDICARE [employer]ICARE [employer] Care Teams Bi Data Architect Relationship Specialty Start Date End Date Bret Jon DO PCP - General Family Medicine 12/31/21 Adam Samaniego MD Medical Oncologist/Leveler Hematology and Oncology 10/24/19
--- OUTSIDE RECORDS SUMMARY | 2024-07-04 10:44 | XMS_ITS | Clinical Summary ---
Author Organization [facility] Address [address] [place] [address] Care Team Providers Care Mobile Equipment Servicer Name Role Phone Unavailable Primary Care Provider Unavailabl e Social History Tobacco Use Types Packs/Day Years Used Date Smoking Tobacco: Never Assessed Comments Unknown Sex and Gender Information Value Date Recorded Sex Assigned at Not on file Legal Sex Female 6:14 PM CDT Gender Identity Not on file Sexual Orientation Not on file Plan of Treatment Health Maintenance Due Date Last Done Comments Colorectal Cancer Screening Colonoscopy (10 Years) 1954 Hepatitis C 1972 DTaP, Tdap and Td Vaccines ( 1 - Tdap) 1973 Mammogram Screening 1994 Pneumococcal Vaccine: 50+ Ye ars (1 of 1 - PCV) 2004 Zoster Vaccines (1 of 2) 2004 Dexa Scan (General) 08/24/2019 COVID-19 Vaccine (2023-2 5 season) 2023 RSV Immunization or 60+ Years (1 - 1-dose 75+ series) 2029 Meningococcal B Vaccine Aged Out No l onger eligible based on patient's age to complete this topic Meningococcal Vaccine Aged Out No hilario silvano eligible based on patient's age to complete this topic RSV Immunizations Under 20 Months Aged Out No longer eligible based on patient's age to complete this topic
--- OUTSIDE RECORDS SUMMARY | 2024-07-04 10:44 | XMS_ITS | Clinical Summary ---
Author Organization [facility] Address [address] [facility] [place] [address] Phone Care Team Providers Care Graphic Design Intern Name Role Phone Adam Samaniego MD Unavailable [phone] Bret Jon DO Primary Care Provider [phone] Allergies Active Allergy Reactions Criticality Noted Date [...] Pneumococcal Polysaccharide PPV23 09/28/2019 ZOSTER Recombinant 10/12/2017 Surgical History Surgery Date Site/Laterality Comments CHOLECYSTECTOMY COLONOSCOPY HYSTERECTOMY OOPHORECTOMY Medical History Medical History Date Comments Lymphoma (HCC) Hypertension Family History Medical History Relation Name Comments Heart disease Father Heart disease Mother Relation Name Status Comments Father (Age 84) Mother (Age 93) Social History Tobacco Use Types Packs/Day Years [...] on file Legal Sex Female 12:51 PM FUNERAL SERVICE PRACTITIONER/EMBALMER Gender Identity Female 08/30/2021 2:51 PM CDT Sexual Orientation Straight 08/30/2021 2: 52 PM CDT Obstetrics History Last Filed Vital Signs Vital Sign Reading [...] 12/31/2021 9:33 AM CDT Plan of Treatment Health Maintenance Due Date Last Done Comments Breast Cancer Screening-Mammogram 1955 Colon Cancer Screening-Colonoscopy 1954 Depression Screening 1954 Fall Risk Assessment 1955 Hepatitis C Screening 1954 Osteoporosis Screening-Bone Density Scan 1954 DTaP/Tdap/Td Vaccine (1 - Tdap) 1965 Hepatitis B Screening 1972 Zoster Vaccine (2 of 2) 12/07/2017 10/12/2017 Well Visit 65+ 08/24/2019 Pneumococcal vaccine 65+ (2 of 2 - PCV) 09/27/2020 09/28/2019 Influenza Vaccine (#1) 2023 0, 11/17/2018, 11/30/2017 Insurance MEDICARE [facility] MEDICARE [facility] [id number] [place] [id number] Care Teams Graphic Design Intern Relationship Specialty Start Date End Date Bret Jon DO PCP - General Family Medicine 12/31/21 Adam Samaniego MD Medical Oncologist/Financial Wellness Coach Hematology and Oncology 10/24/19
--- OUTSIDE RECORDS SUMMARY | 2024-07-04 10:44 | XMS_ITS | Encounter Summary ---
Author Organization [facility] Address [address] [facility] [place] [address] Care Team Providers Care Sterile Processing Technician Name Role Phone Adam Castelan MD Primary Care Provider Encounter Details Date Type Department Care Team (Late st Contact Info) Description 12/15/2023 Lab Requisition [facility] - Pathology Lab [address] [place] [id number] Noe Ren MD [address] [place] [address] Illness, unspecified Social History Tobacco Use Types Packs/Day Years Used Date Smoking Tobacco: Former Cigarettes Q uit: 1997 Smokeless Tobacco: Never Comments No Sex and Gender Information Value Date Recorded Sex Assigned at Not on file Legal Sex Female 8:46 AM CDT Gender Identity Not on file Sexual Orientation Not on file documented as of this encounter Plan of Treatment Not on file documented as of this encounter Procedures Procedure Name Priority Date/Time Associated Diagnosis Comments PATHOLOGY TISSUE Routine 12/13/2023 10:2 1 AM CDT Illness, unspecified documented in this encounter Results * PATHOLOGY TISSUE (12/13/2023 10:21 AM CDT) Case Report Surgical Pathology Report Case: [id number] Authorizing Provider: Noe Ren Collected: 12/13/2023 10:21 AM MD Stephen Ordering Location: [facility] - Received: 12/15/2023 02:25 PM Pathology Lab Pathologist: Jovany Vazquez MD Specimen: Lymph Node Biopsy 12/16/2023 6:23 PM [facility] Final Diagnosis Lymph node, left groin, core biopsy: - Follicular lymphoma, grade 3A (high-grade follicular lymphoma) - An excisional biopsy can be considered to further rule out diffuse large B-cell lymphoma in unsampled areas of the lymph node, if clinically indicated 12/16/2023 6:23 PM [facility] Microscopic Description and Comment The H&E sections of the lymph node profile reveal effaced architecture, with [id number]-[id number] follicle proliferation. The follicles are comprised of many centroblasts (more than 16 per high-power field), admixed with scattered centrocytes. There are no sheets of large atypical cells seen. Selected immunostains are performed, and reveal the following: The neoplastic cells are highlighted by PAX5, CD20, BCL2, BCL6, and CD10; negative for CD5, CD3, cyclin D1, SOX11, and CD23. CD21 and CD23 highlight the follicular dendritic cell networks. Ki-67 highlights the proliferating cells predominantly in the follicles, and scattered ones in the interfollicular areas. 12/16/2023 6:23 PM [facility] Clinical History 12/16/2023 6:23 PM [facility] Materials Received Received are 3 slide(s) and 1 block labeled [id number] along with a copy of the outside pathology report. [place] [address]. All original materials are returned to the referring institution, along with a copy of our final report. 12/16/2023 6:23 PM [facility] Pathologist Location at [facility] 12/16/2023 6:23 PM [facility] Disclaimer The performance characteristics of all immunohistochemical and indirect immunofluorescence stains (if any) cited in this report were determined by the Histopathology Laboratory of [facility]. Some of these tests were developed by our own laboratory and have not been cleared or approved by the US Food and Drug Administration. The FDA does not require this test to go through premarket FDA review. These tests are used for clinical purposes. They should not be regarded as investigational or for research. This laboratory is certified under the Clinical Laboratory Improvement Amendments (CLIA) as qualified to perform high complexity clinical laboratory testing. This case has been personally reviewed and interpreted by the attending (teaching) pathologist. 12/16/2023 6:23 PM CDT [facility] Embedded Images 12/16/2023 6:23 PM CDT [facility] Pathology/Cytolo gy BIOPSY OF LYMPH NODE / Unknown 12/13/2023 10:21 AM CDT 12/15/2023 2:25 PM CDT Noe Ren MD LAB - PATHOLOGY/CYT OLOGY ORDERABLES Final Result [facility] [address] [phone] documented in this encounter Visit Diagnoses Diagnosis Illness, unspecified documented in this encounter Care Teams Sterile Processing Technician Relationship Specialty Start Date End Date Adam Castelan MD [address] [place] [address] PCP - General 11/12/20 documented as of this encounter
== END 2024-07-04 09:39 | disposition home or self-care (01) ==
PROVIDERS: PCP Internal Medicine; Visit Provider Internal Medicine Hematology & Oncology
DX: C82.32 Follicular lymphoma grade IIIa, intrathoracic lymph nodes (principal)
CPT/HCPCS: 78815; A9552

== ENCOUNTER 2024-11-22 06:44 | Outpatient (CLI) | payer MEDICARE, OTHER, SELFPAY ==
--- OUTSIDE RECORDS SUMMARY | 2009-08-09 03:00 | XMS_ITS | Continuity of Care Document ---
Author Organization [facility] Address [address] [place] [address] Phone Care Team Providers Care Contact Lens Lathe Operator Name Role Phone Lozano OD, Maynor Unavailable Unavailable Procedures Procedure Date Eye Exam & Treatment Refraction Eye Exam & Treatment Refraction Eye Exam & Treatment Eye Exam & Treatment Refraction Advance Directives Directive Yes / No Effective Date File Name No Information Encounters Encounter Description Practice Location Reason(s) For Visit Diagnoses Date Provider Providers Copied on Encounter [facility], [address] [place] [address] [address], [place], [place], [id number], tel:[phone] [facility] No Information May-2 8-201 0 Lozano OD Maynor. [address], [place], [place], [facility], . tel:[phone] [facility], [address] [place] [address] [address], [place], [place], [id number], tel:[phone] [facility] No Information May-2 2-200 9 Lozano OD Maynor. [address], [place], [place], [facility], . tel:[phone] [facility], [id number] [place] [address] [address], [place], [place], [id number], tel:[phone] [facility] No Information May-0 8-200 8 Lozano OD Maynor. [address], [place], [address], [place]. tel:[phone] [facility], [address], [place], [place], [id number], [place] tel:[phone] [facility] No Information May-0 3-200 7 Lozano OD Maynor. [address] [facility] , [address], [place], [address], [place]. tel:[phone] Family History Family Member Type Diagnosis Age At Onset No Information Payers Payer name Insurance type Covered libertarian ID Marvin tomas(s) [facility] Commercial CI [id number] Social History Type Description Quantity Date Captured Comments Sex Female Smoking Status No Information Chief Complaint And Reason For Visit No Information Reason For Referral Reason For Referral No Information History Of Present Illness Encounter Date Complaint History Of Prese nt Illness No Information Functional Status Date Functional Assessmen t No Information Instructions Date Instruction Additional Infor mation No Information Assessments Type Assessment Date No Information Patient Care Teams Name Effective Dates (start - stop) Status Members No Information
--- NOTE | ~2024-11-22 | CT_ITS ---
EXAMINATION: CT chest abdomen pelvis w con DATE: 11/22/2024 07:22 INDICATION: Follicular lymphoma TECHNIQUE: Computed tomography (CT) of the chest, abdomen, and pelvis was performed with 100 mL Omnipaque-350 intravenous contrast. Automated exposure control and iterative reconstruction technique were employed. The dose-length product was 488.47 mGy-cm. COMPARISON: PET/CT dated 07/02 05/09 and 11/25/[address] dated 01/06/2024 FINDINGS: CHEST CT: Right internal jugular central venous port catheter with distal tip in the central right atrium. Minimal dependent atelectasis in bilateral lower lobes. Unchanged 2 mm nodule at the right apex and at the lingula. No new or enlarging pulmonary nodules, pneumonia, pulmonary edema or pleural effusion. Heart size is normal. No pericardial effusion. Thoracic aorta is normal in caliber with no dissection. No pathologically enlarged thoracic lymphadenopathy. 1.3 cm left thyroid nodule without significant change since 11/25/2023. Chronic mild anterior wedging at T5-T8. ABDOMEN/PELVIS CT: Chronic dilation the common bile duct which measures up to 10 mm likely related to prior cholecystectomy with surgical clips the gallbladder fossa. Liver is normal with no intrahepatic biliary ductal dilation. Spleen, pancreas, bilateral adrenal glands and kidneys are normal. Bladder is normal. Bowels including the appendix are normal. The uterus is not identified and has likely been surgically resected. Minimal ascites in the deep pelvis. No abscess or free intraperitoneal gas. No pathologically enlarged abdominal or pelvic lymphadenopathy. Right total hip arthroplasty. IMPRESSION: 1. No lesions suspicious lymphoma or other malignancy or metastatic disease. 2. Minimal ascites in the deep pelvis. 3. No change since 11/25/2023 in a likely benign 1.3 cm left thyroid nodule. Reviewed, dictated and finalized at location A.
--- OUTSIDE RECORDS SUMMARY | 2024-11-22 06:47 | XMS_ITS | Clinical Summary ---
Author Organization [facility] Address [address] [place] [address] Care Team Providers Care Crystal Mounter Name Role Phone Adam Castelan MD Primary Care Provider [phone] Source Comments [facility],non-owned Affiliates and Associated Physician Practices is amultiple site organization consisting of ambulatory clinics and hospital sitesin [place], [place], [place] and [place]. This disclosure is being madepursuant to the Care Everywhere program and may not contain all information available regarding this patient. Last updated 17.[employer] [facility] Allergies Active Allergy Reactions Criticality Noted Date [...] 9:22 AM CDT Height 175.3 cm (5' 9) 10/12/2017 9:22 AM CDT Body Mass Index [...] DIABETES 10/12/2017 DEPRESSION SCREENING 03/15/2024 INFLUENZA VACCINE (#1) 2024 HEPATITIS B VACCINE Aged Out No [...] to complete this topic Insurance MEDICARE [place] [address] SELF PAY NO INSURANCE Member Subscriber Plan / Payer (Ef fective for All Dates) Name:Chapito Brooks Member ID:Not on file Relation to Subscriber:Not on file Name:CHAPITO BROOKS Subscriber ID:Not on file (Home) Address: [address] [place] [address] Payer ID:Not on file Group ID:Not on file Type:Self Pay Address: [place], [place] Care Teams Crystal Mounter Relationship Specialty Start Date End Date Adam Castelan MD [address] [place] [address] [facility] - General 11/12/20
--- OUTSIDE RECORDS SUMMARY | 2024-11-22 06:47 | XMS_ITS | Clinical Summary ---
Author Organization [facility] S[facility] Address [address] [place] [address] Care Team Providers Care Barn Worker Name Role Phone Chilo Ashby Primary Care [...] Ag Home Test Kit DIRECTED 2 Active zolpidem (AMBIEN) 10 mg tabletIndication s:Follicular lymphoma, unspecified grade, unspecified body region (CMS/HCC) Take 1 Tablet (10 mg) by mouth nightly as needed for Insomnia. 30 Tablet 4 Active lidocaine-priloc hung (EMLA) 2.5-2.5 % Cream Apply quarter size amount to port site 30 minutes prior to access. 30 Gram 1 5 Active ondansetron (ZOFRAN ODT) 8 mg Tablet, Rapid Dissolve Dissolve 1 tablet on top of tongue then swallow with saliva every 8 hours as needed for nausea or vomiting 30 Tablet 1 5 Active Active Problems Problem Noted Date Diagnosed Date History of follicular lymphoma 09/23/2020 Encounters Date Type Department Care Team Description 11/20/2024 Orders Only [facility] Oncology and Hematology - [place] [address] [address] Spike Harvey MD Follicular lymphoma, unspecified grade, unspecified body region (CMS/HCC) 11/06/2024 Orders Only [facility] Oncology and Hematology - [place] [address] [address] Spike Harvey MD Follicular lymphoma, unspecified grade, unspecified body region (CMS/HCC) 10/23/2024 Orders Only [facility] Oncology and Hematology - Franky [facility] [address] Spike Harvey MD Follicular lymphoma, unspecified grade, unspecified body region (CMS/HCC) 10/09/2024 Orders Only [facility] Oncology and Hematology - [place] [address] Spike Harvey MD Follicular lymphoma, unspecified grade, unspecified body region (CMS/HCC) 10/04/2024 8:30 AM CDT Office Visit [facility] Oncology and Hematology - [place] [address] Spike Harvey MD Follicular lymphoma, unspecified grade, unspecified body region (CMS/HCC) (Primary Dx) 10/04/2024 Orders Only [facility] Oncology and Hematology - [place] [address] [phone] Spike Harvey MD 09/27/2024 External Device Data STL ABSTRACTION Provider, Abstract 09/27/2024 External Device Data STL ABSTRACTION Provider, Abstract 09/25/2024 Orders Only [facility] Oncology and Hematology - [place] [address] Spike Harvey MD Follicular lymphoma, unspecified grade, unspecified body region (CMS/HCC) 09/11/2024 Orders Only [facility] Oncology and Hematology - [place] [place] [address] Spike Harvey MD Follicular lymphoma, unspecified grade, unspecified body region (CMS/HCC) 08/29/2024 External Device Data STL ABSTRACTION Provider, Abstract 08/28/2024 Orders Only [facility] Oncology and Hematology - [place] [place] [address] Spike Harvey MD Follicular lymphoma, unspecified grade, unspecified body region (CMS/HCC) from Last 3 Months Family History Medical [...] Sign Reading Time Taken Comments Blood Pressure 107/61 10/04/2024 8:39 AM CDT Pulse 54 10/04/2024 8:39 AM CDT Temperature 36.1 C (97 F) 10/04/2024 8:39 AM CDT Respiratory Rate 16 10/04/2024 8:39 AM CDT Oxygen Saturation 96% 10/04/2024 8:39 AM CDT Inhaled Oxygen Concentration - - Weight 76.9 kg (169 lb 9.6 oz) 10/04/2024 8:39 A M CDT Height 175.3 cm (5' 9) 09/23/2021 9:37 AM CDT Body Mass Index 25.05 09/23/2021 9:37 AM CDT Plan of Treatment Upcoming Encounters Date Type Department Care Team (Late st Contact Info) Description 11/29/2024 8:45 AM CDT Office Visit [facility] Oncology and Hematology - [place] [address] [place] [address] Spike Harvey MD [address] [facility] [address] [place] [address] Health Maintenance Due Date Last Done Comments Pre-Diabetes and Diabetes Screening 1955 DTAP/TDAP/TD VACCINES (1 - Tdap) 1973 FIT-DNA Q 3 years 08/24/1999 FIT/FOBT Q 1 year 08/24/1999 Flex Sig/CT Colonography Q 5 years 08/24/1999 ZOSTER VACCINE (2 of 2) 12/07/2017 10/12/2017 PNEUMOCOCCAL VACCINE 50+ YEA RS (2 of 2 - PCV) 09/27/2020 09/28/2019 INFLUENZA VACCINE (#1) 2024 11/15/2019, 2018 BREAST CANCER SCREENING 04/12/2025 04/12/19, 04/12/2024, 03/01/2023, Additional history exists OSTEOPOROSIS SCREENING 04/01/2026 04/01/2021 RSV VACCINE (60+ or ) (1 - 1-dose 75+ series) 2029 COLORECTAL SCREENING 09/21/2033 09/22/2023, 10/29/2020, 08/28/2019, Additional history exists Colorectal Cancer Screening 09/21/2033 Procedures Procedure Name Priority Date/Time Associated Diagnosis Comments BASIC METABOLIC PANEL Routine 10/04/2024 11:59 AM CDT CBC WITH DIFFERENTIAL Routine 10/04/2024 11:52 AM CDT from Last 3 Months Results * BASIC METABOLIC PANEL (10/04/2024 11:59 AM CDT) Blood us Spike Harvey MD CHEMISTRY ORDERABLES Final Resu lt * CBC WITH DIFFERENTIAL (10/04/2024 11:52 AM CDT) Blood us Spike Harvey MD HEMATOLOGY ORDERABLES Final Res ult from Last 3 Months Insurance MEDICARE PART A AND B [facility] Care Teams Barn Worker Relationship Specialty Start Date End Date Chilo Ashby DO [address] [facility] [address] [place] [address] PCP - General Internal Medicine 04/03/24
--- OUTSIDE RECORDS SUMMARY | 2024-11-22 06:47 | XMS_ITS | Clinical Summary ---
Author Organization [facility] Address [address] [place] [address] Phone Care Team Providers Care Padding Machine Operator Name Role Phone Adam Samaniego MD Unavailable [phone] Bret Jon DO Primary Care Provider [phone] Allergies Active Allergy Reactions Criticality Noted Date [...] on file Legal Sex Female 12:51 PM ABATEMENT WORKER Gender Identity Female 08/30/2021 2:51 PM CDT [...] 9:33 AM CDT Height 172.7 cm (5' 8) 12/31/2021 9:33 AM CDT Body Mass Index [...] - PCV) 09/27/2020 09/28/2019 Influenza Vaccine (#1) 2024 0, 11/17/2018, 11/30/2017 Insurance MEDICARE [facility] MEDICARE [facility] [address] [id number] Care Teams Padding Machine Operator Relationship Specialty Start Date End Date Bret Jon DO PCP - General Family Medicine 12/31/21 Adam Samaniego MD Medical Oncologist/Compress Trucker Hematology and Oncology 10/24/19
--- OUTSIDE RECORDS SUMMARY | 2024-11-22 06:47 | XMS_ITS | Encounter Summary ---
Author Organization [facility] Address [address] [facility] [place] [address] Care Team Providers Care Skin Specialist Name Role Phone Adam Castelan MD Primary Care Provider Encounter Details Date Type Department Care Team (Late st Contact Info) Description 12/15/2023 Lab Requisition [facility] - Pathology Lab [address] [place] [phone] Noe Ren MD [address] [place] [address] Illness, unspecified Social History Tobacco Use [...] CDT) Case Report Surgical Pathology Report Case: [id number] Authorizing Provider: Noe Ren Collected: 12/13/2023 10:21 AM MD Stephen Ordering Location: [facility] Physician [facility] - Received: 12/15/2023 02:25 PM Pathology Lab Pathologist: Jovany Vazquez MD Specimen: Lymph Node Biopsy 12/16/2023 6:23 PM [facility] Final Diagnosis Lymph node, left groin, core biopsy: - Follicular lymphoma, grade 3A (high-grade follicular lymphoma) - An excisional biopsy can be considered to further rule out diffuse large B-cell lymphoma in unsampled areas of the lymph node, if clinically indicated 12/16/2023 6:23 PM [facility] PATH[facility]Y LAB at 1823 CDT Microscopic Description and Comment The H&E sections of the lymph node profile reveal effaced architecture, with [id number] follicle proliferation. The follicles are comprised of [...] in the interfollicular areas. 12/16/2023 6:23 PM [facility] Clinical History 12/16/2023 6:23 PM [facility] Materials Received Received are 3 slide(s) and 1 block labeled [id number] along with a copy of the outside pathology report. [place] [address]. All original materials are returned to the referring institution, along with a copy of our final report. 12/16/2023 6:23 PM [facility] Pathologist Location at [facility] 12/16/2023 6:23 PM [facility] Disclaimer The performance characteristics of all immunohistochemical and indirect immunofluorescence stains (if any) cited in this report were determined by the Histopathology Laboratory of [facility]. Some of these tests were developed [...] attending (teaching) pathologist. 12/16/2023 6:23 PM CDT [facility] Embedded Images 12/16/2023 6:23 PM CDT [facility] Pathology/Cytolo gy BIOPSY OF LYMPH NODE / Unknown 12/13/2023 10:21 AM CDT 12/15/2023 2:25 PM CDT Noe Ren MD LAB - PATHOLOGY/CYT OLOGY ORDERABLES Final Result [facility] [address] [phone] documented in this encounter Visit Diagnoses Diagnosis Illness, unspecified documented in this encounter Care Teams Skin Specialist Relationship Specialty Start Date End Date Adam Castelan MD [address] [place] [address] PCP - General 11/12/20 documented as of this encounter
--- OUTSIDE RECORDS SUMMARY | 2024-11-22 06:47 | XMS_ITS | Clinical Summary ---
Author Organization [facility] Address [address] [place] [address] Care Team Providers Care Sales Department Manager Name Role Phone Unavailable Primary Care Provider [...] 2004 Dexa Scan (General) 08/24/2019 COVID-19 Vaccine ( - 2023-2 5 season) 2024 RSV Immunization or 60+ Years (1 - [...]
[2024-11-22 07:18] LABS: Estimated Glomerular Filt Rate 55
== END 2024-11-22 06:45 | disposition home or self-care (01) ==
LOC: ANHIMG 06:45
PROVIDERS: PCP Internal Medicine; Visit Provider Internal Medicine Hematology & Oncology
DX: C82.90 Follicular lymphoma, unspecified, unspecified site (principal)
CPT/HCPCS: 71260; 74177; Q9967

== ENCOUNTER 2025-03-13 08:10 | Outpatient (CLI) | payer MEDICARE, OTHER, SELFPAY ==
--- NOTE | ~2025-03-13 | CT_ITS ---
EXAMINATION: CT chest abdomen pelvis w con DATE: 03/13/2025 08:34 INDICATION: Follicular lymphoma. TECHNIQUE: Computed tomography (CT) of the chest, abdomen, and pelvis was performed with 100 mL Omnipaque 350 intravenous contrast. Automated exposure control and iterative reconstruction technique were employed. The dose-length product was 380.89 mGy-cm. COMPARISON: CT 11/22/2024 FINDINGS: CHEST CT: There is mild atelectasis bilaterally. No pleural effusion. There is a right internal jugular port with tip in right atrium. The heart size is normal. No pericardial effusion. There are no pathologically enlarged lymph nodes. There is moderate thoracic spondylosis. ABDOMEN/PELVIS CT: The liver and spleen are normal. There are changes of cholecystectomy. The pancreas, adrenal glands, and right kidney are normal. There is a 4 mm cyst in left kidney. There are no dilated loops of bowel. The appendix is not visualized. There are no pathologically enlarged lymph nodes. There is no free intraperitoneal fluid. There is a total right hip arthroplasty. There is severe lower lumbar spondylosis. IMPRESSION: 1. No evidence of lymphoma. Reviewed, dictated and finalized at location E. N SPOOLER IMPRESSION: 1. No evidence of lymphoma.
--- OUTSIDE RECORDS SUMMARY | 2025-03-13 08:16 | XMS_ITS | Clinical Summary ---
Author Organization [facility] Address [address] [place] [address] Care Team Providers Care Compliance Vice President Name Role Phone Unavailable Primary Care Provider [...] Scan (General) 08/24/2019 COVID-19 Vaccine ( - 2024-2 6 season) 2024 Influenza Adult (#1) 2024 RSV Immunization or 60+ Years (1 - 1-dose 75+ series) 2029 Hepatitis A Vaccines Aged Out No long er eligible based on patient's age to complete this topic Meningococcal B Vaccine Aged Out No l onger eligible based on patient's age to complete this topic Meningococcal Vaccine Aged Out No hilario silvano eligible based on patient's age to complete this topic RSV Immunizations Under 20 Months Aged Out No longer eligible based on patient's age to complete this topic
--- OUTSIDE RECORDS SUMMARY | 2025-03-13 08:16 | XMS_ITS | Encounter Summary ---
Author Organization [facility] Address [address] [facility] [place] [address] Care Team Providers Care Halver Machine Operator Name Role Phone Adam Castelan MD Primary Care Provider [phone] Encounter Details Date Type Department Care Team (Late st Contact Info) Description 12/15/2023 Lab Requisition [facility] - Pathology Lab [address] [place] [phone] Noe Ren MD [address] [place] [address] Illness, unspecified Social History Tobacco Use Types Packs/Day Years Used Date Smoking Tobacco: Former Cigarettes 0 Q uit: 1997 Smokeless Tobacco: Never Comments [...] CDT) Case Report Surgical Pathology Report Case: [id number] Authorizing Provider: Noe Ren Collected: 12/13/2023 10:21 AM MD Stephen Ordering Location: [facility] Physician [facility] - Received: 12/15/2023 02:25 PM Pathology Lab Pathologist: Jovany Vazquez MD Specimen: Lymph Node Biopsy 12/16/2023 6:23 PM [facility] Final Diagnosis Lymph node, left groin, core biopsy: - Follicular lymphoma, grade 3A (high-grade follicular lymphoma) - An excisional biopsy can be considered to further rule out diffuse large B-cell lymphoma in unsampled areas of the lymph node, if clinically indicated 12/16/2023 6:23 PM [facility] at 1823 CDT Microscopic Description and Comment The H&E sections of the lymph node profile reveal effaced architecture, with [id number]-[id number] follicle proliferation. The follicles are comprised of [...] in the interfollicular areas. 12/16/2023 6:23 PM [facility] Clinical History 12/16/2023 6:23 PM [facility] Materials Received Received are 3 slide(s) and 1 block labeled [id number] along with a copy of the outside pathology report. [place] [address]. All original materials are returned to the referring institution, along with a copy of our final report. 12/16/2023 6:23 PM [facility] Pathologist Location at [facility] 12/16/2023 6:23 PM [facility] Disclaimer The performance characteristics of all immunohistochemical and indirect immunofluorescence stains (if any) cited in this report were determined by the Histopathology Laboratory of [facility]. Some of these tests were developed by [...] attending (teaching) pathologist. 12/16/2023 6:23 PM CDT [facility] PATH[facility] LAB Embedded Images 12/16/2023 6:23 PM CDT [facility] LAB Pathology/Cytolo gy BIOPSY OF LYMPH NODE / Unknown 12/13/2023 10:21 AM CDT 12/15/2023 2:25 PM CDT Noe Ren MD LAB - PATHOLOGY/CYT OLOGY ORDERABLES Final Result [facility] LAB [address] [phone] documented in this encounter Visit Diagnoses Diagnosis Illness, unspecified documented in this encounter Care Teams Halver Machine Operator Relationship Specialty Start Date End Date Adam Castelan MD [address] [place] [address] PCP - General 11/12/20 documented as of this encounter
--- OUTSIDE RECORDS SUMMARY | 2025-03-13 08:16 | XMS_ITS | Clinical Summary ---
Author Organization [facility] Address [address] [place] [address] Care Team Providers Care Mud Mixer Name Role Phone Chilo Ashby DO Primary Care Provider Allergies Active Allergy Reactions [...] for nausea or vomiting 30 Tablet 1 05/13/202 5 Active Active Problems Problem Noted Date Diagnosed Date History of follicular lymphoma 09/23/2020 Encounters Date Type Department Care Team Description 01/24/2025 9:00 AM CLINICAL SALES CONSULTANT Office Visit [facility] Oncology and Hematology [facility] [address] [phone] Vesta Driscoll MD History of follicular lymphoma (Primary Dx) 01/24/2025 Orders Only [facility] Oncology and Hematology [facility] [address] [place] [address] Spike Harvey MD 01/03/2025 External Device Data STL ABSTRACTION Provider, Abstract 01/02/2025 External Device Data STL ABSTRACTION Provider, Abstract 01/01/2025 Orders Only [facility] Oncology and Hematology [facility] [address] [place] [address] Spike Harvey MD Follicular lymphoma, unspecified grade, unspecified body region (CMS/HCC) 12/18/2024 Orders Only [facility] Oncology and Hematology [facility] [address] [place] [address] Spike Harvey MD Follicular lymphoma, unspecified grade, [...] Sign Reading Time Taken Comments Blood Pressure 138/78 01/24/2025 8:40 AM CLINICAL SALES CONSULTANT Pulse 54 01/24/2025 8:40 AM CLINICAL SALES CONSULTANT Temperature 36.5 C (97.7 F) 01/24/2025 8:40 AM CLINICAL SALES CONSULTANT Respiratory Rate 15 01/24/2025 8:40 AM CLINICAL SALES CONSULTANT Oxygen Saturation 96% 01/24/2025 8:40 AM CLINICAL SALES CONSULTANT Inhaled Oxygen Concentration - - Weight 74.9 kg (165 lb 3.2 oz) 01/24/2025 8:40 A M CLINICAL SALES CONSULTANT Height 175.3 cm (5' 9) 09/23/2021 9:37 AM CDT Body Mass Index 24.4 09/23/2021 9:37 AM CDT Plan of Treatment Upcoming Encounters Date Type Department Care Team (Late st Contact Info) Description 03/21/2025 9:00 AM CLINICAL SALES CONSULTANT Office Visit [facility] Oncology and Hematology - [place]y [address] [facility] [address] [place] [address] Spike Harvey MD [address] [facility] [address] [place] [address] Health Maintenance Due Date Last Done Comments DTAP/TDAP/TD VACCINES (1 - Tdap) 1973 FIT-DNA Q 3 years 08/24/1999 FIT/FOBT Q 1 year 08/24/1999 Flex Sig/CT Colonography Q 5 years 08/24/1999 ZOSTER VACCINE (2 of 2) 12/07/2017 10/12/2017 PNEUMOCOCCAL VACCINE 50+ YEA RS (2 of 2 - PCV) 09/27/2020 09/28/2019 INFLUENZA VACCINE (#1) 2024 11/15/2019, 2018 BREAST CANCER SCREENING 04/12/2025 04/12/19 25, 04/12/2024, 03/01/2023, Additional history exists OSTEOPOROSIS SCREENING 04/01/2026 04/01/2021 RSV VACCINE (60+ or ) (1 - 1-dose 75+ series) 2029 COLORECTAL SCREENING 09/21/2033 09/22/2023, 08/14/2023, 10/29/2020, Additional history exists Colorectal Cancer Screening 09/21/2033 Procedures Procedure Name Priority Date/Time Associated Diagnosis Comments COMPREHENSIVE METABOLIC PANEL Routine 01/24/2025 2:48 PM CLINICAL SALES CONSULTANT from Last 3 Months Results * COMPREHENSIVE METABOLIC PANEL (01/24/2025 2:48 PM CLINICAL SALES CONSULTANT) Blood Spike Harvey MD CHEMISTRY ORDERABLES Final Resu lt from Last 3 Months Insurance MEDICARE PART A AND B [facility] Care Teams Mud Mixer Relationship Specialty Start Date End Date Chilo Ashby DO [address] [facility] [address] [place] [address] PCP - General Internal Medicine 04/03/24
--- OUTSIDE RECORDS SUMMARY | 2025-03-13 08:16 | XMS_ITS | Clinical Summary ---
Author Organization [facility] Address [address] [facility] [place] [address] Care Team Providers Care Gas Station Clerk Name Role Phone Adam Castelan MD Primary Care Provider [phone] Source Comments [facility],non-owned Affiliates and Associated Physician Practices is amultiple site organization consisting of ambulatory clinics and hospital sitesin [place], [place], [place] and [place]. This disclosure is being madepursuant to the Care Everywhere program and may not contain all information available regarding this patient. Last updated 17[employer] [facility] Allergies Active Allergy Reactions Criticality Noted Date [...] MAMMOGRAM 1955 MEDICARE AWV 12 MONTHS 1955 HEPATITIS C SCREENING 08/18/1972 DTAP/TDAP/TD VACCINES (1 - Tdap) 1973 PNEUMOCOCCAL VACCINE 50+ (1 of 1 - PCV) 2004 ZOSTER VACCINE (1 of 2) 2004 SCREENING FOR DIABETES 10/12/2017 DEPRESSION SCREENING 03/15/2024 COVID-19 VACCINE (1 - 2024-2 6 season) 2024 INFLUENZA VACCINE (#1) 2024 Respiratory Syncytial Virus (RSV) Vaccine Pt: or over 60 yrs (1 - 1-dose 75+ series) 2029 HEPATITIS B VACCINE Aged Out No longe [...] to complete this topic Insurance MEDIC[place] [address] SELF PAY NO INSURANCE Member Subscriber Plan / Payer (Ef fective for All Dates) Name:Chapito Brooks Member ID:Not on file Relation to Subscriber:Not on file Name:CHAPITO BROOKS Subscriber ID:Not on file (Home) Address: [address] [place] [address] Payer ID:Not on file Group ID:Not on file Type:Self Pay Address: [place], [place] Care Teams Gas Station Clerk Relationship Specialty Start Date End Date Adam Castelan MD [address] [place] [address] [facility] - General 11/12/20
--- OUTSIDE RECORDS SUMMARY | 2025-03-13 08:16 | XMS_ITS | Clinical Summary ---
Author Organization [facility] Address [address] [facility] [address] [place] [address] Phone Care Team Providers Care Senior Revenue Accountant Name Role Phone Adam Samaniego MD Unavailable [phone] Bret Jon DO Primary Care Provider [phone] Allergies Active Allergy Reactions Criticality Noted Date [...] on file Legal Sex Female 12:51 PM REAL ESTATE PROFESSOR Gender Identity Female 08/30/2021 2:51 PM CDT [...] of Treatment Not on file Insurance MEDICARE [facility] [id number] [id number] MEDICARE [facility] Care Teams Senior Revenue Accountant Relationship Specialty Start Date End Date Bret Jon DO PCP - General Family Medicine 12/31/21 Adam Samaniego MD Medical Oncologist/Motion Picture Set Up Worker Hematology and Oncology 10/24/19
[2025-03-13 08:29] LABS: Estimated Glomerular Filt Rate 55
== END 2025-03-13 08:11 | disposition home or self-care (01) ==
LOC: ANHIMG 08:13
PROVIDERS: PCP Internal Medicine; Visit Provider Internal Medicine Hematology & Oncology
DX: Z85.72 Personal history of non-Hodgkin lymphomas (principal)
CPT/HCPCS: 71260; 74177; Q9967